=== PATIENT | male | born 1960 | race Caucasian/White ===

== ENCOUNTER 2016-05-22 04:55 | Inpatient (IN) | payer OTHER, MEDICARE ==
[~2016-05-22] VITALS: Ht 170.2 cm; Wt 77.5 kg
[~2016-05-22 04:55] MED LIST: EPOE200015 IJ; FOLI-49 PO; FURO40TA PO; LAB200 PO; LABE100T3 PO; LANT3I SC; METO25TA7 PO; MYCO250C3 PO; NEPH PO; NOVO3I SC; OMEP40CA6 PO; PRED5 PO; SODI650T PO; TACR1CAP26 PO; TAMS0.4C2 PO; ZOLP5TAB PO
[2016-05-22] MEDS ORDERED: ALBUTEROL 0.5% (NEB) 2.5 MG/0.5 ML AMP HHN STA (05:27)
[2016-05-22] MEDS ORDERED: IPRATROPIUM (NEB) 0.5 MG/2.5 ML AMP HHN ONE (05:30)
--- NOTE | 2016-05-22 06:05 | RADRPT ---
PROCEDURE: CHEST - 1 VIEW CLINICAL INDICATION: 56-year-old male with shortness of breath. TECHNIQUE: A single frontal AP semi-erect view of the chest was performed portably. The images we re reviewed on a PACS workstation. COMPARISON: Chest x-ray March 03, 2016. FINDINGS: The cardiomediastinal silhouette is enlarged. The thoracic aortic arch is mildly calcified. There is mild pulmonary vascular congestion. There is a shallow inspiration. There is left lower lung zone linear subsegmental atelectasis. There is no evidence for focal consolidation. There is no evidenc e for pneumothorax. The osseous structures are intact. IMPRESSION: 1. Cardiomegaly. 2. Mildly calcified thoracic aortic arch. 3. Pulmonary vascular congestion. 4. Shallow inspiration. 5. Left lower lung zone linear subsegmental atelectasis. A superimposed infiltrate cannot be exclu ded. .Alexx Denton MD, MD Date Time Electronically viewed and signed by .Alexx Denton MD, on 05/22/2016 06:04 .Peter/
[2016-05-22] MEDS ORDERED: IPRATROPIUM (NEB) 0.5 MG/2.5 ML AMP INH STA (06:06)
[2016-05-22] MEDS ORDERED: ALBUTEROL 0.5% (NEB) 2.5 MG/0.5 ML AMP INH STA (06:06)
[2016-05-22 06:46] LABS: HEMATOCRIT 22.4 % (42.0-52.0); HEMOGLOBIN 7.4 g/dl (14.0-18.0); MEAN CORPUSCULAR HEMOGLOBIN 30.5 pg (29.0-33.0); MEAN CORPUSCULAR VOLUME 92.4 fl (82.0-101.0); MEAN PLATELET VOLUME 12.4 fl (7.4-10.4); PLATELET COUNT 48 10^3/UL (140-440); RED BLOOD COUNT 2.43 10^6/ul (4.70-6.10); RED CELL DISTRIBUTION WIDTH 16.4 % (11.5-14.5); UNCORRECTED WBC 3.5 10^3/ul (4.8-10.8); WHITE BLOOD COUNT 3.5 10^3/ul (4.8-10.8)
[2016-05-22 06:57] LABS: POTASSIUM 4.7 mmol/L (3.5-5.1)
[2016-05-22 06:59] LABS: INR 1.17; PT RATIO 1.2
[2016-05-22 07:00] LABS: CREATININE 2.72 mg/dl (0.61-1.24); PARTIAL THROMBOPLASTIN TIME 28.2 Sec (25.0-35.0)
[2016-05-22] MEDS ORDERED: FUROSEMIDE 40 MG INJ IV ONE (07:00)
[2016-05-22 07:01] LABS: CALCIUM 8.4 mg/dl (8.4-10.2)
--- NOTE | 2016-05-22 07:04 | ERA ---
ER Documentation Chief Complaint Date/Time DATE: 05/22/16 TIME: 06:52 Chief Complaint chest congestion x 3-4 days HPI The patient is a 56-year-old gentleman with a past medical history of congestive heart failure, diabetes mellitus, hypertension, chronic kidney disease, status post kidney transplant in 2011, chronic pancytopenia, left eye blindness, status post left below knee amputation, and history of myeloproliferative disorder. The patient presented to the emergency room with shortness of breath with exertion and a dry cough for the past 3 to 4 days. He states he has not had a fever, shaking or chills. He denies any recent travel or prolonged immobilization. He denies any chest pain or pressure. He denies any abdominal pain. The patient indicates he has been compliant with all of his medications. The patient denies any swelling of his lower extremities. The patient states his primary care physician is Dr. Maloney and his electronics utility worker is Dr. Segun Landeros. His doughnut machine operator is Dr. Hatch. The patient' s renal transplant electronics utility worker is Dr. Sandra victoria located at [facility]. ROS All systems reviewed and are negative except as per history of present illness. Medications Home Meds Active Scripts Labetalol Hcl* (Normodyne*) 200 Mg Tab, 300 MG PO TID for 30 Days, TAB Prov:NEHEMIAH SALEH 07/28/15 Reported Medications Mycophenolate Mofetil* (Cellcept*) 250 Mg Capsule, 500 MG PO BID, CAP 03/03/16 Metoprolol Succinate* (Toprol XL*) 25 Mg Tab.sr.24h, 25 MG PO DAILY, #30 TAB 03/03/16 Furosemide* (Lasix*) 40 Mg Tablet, 40 MG PO DAILY, TAB 03/03/16 Labetalol Hcl* (Labetalol Hcl*) 100 Mg Tablet, 100 MG PO BID, TAB 03/03/16 Sodium Bicarbonate (Antacid) 650 Mg Tablet, 1300 MG PO BID, TAB 03/03/16 Insulin Glargine* (Lantus*) 100 Unit/Ml Soln, 33 UNIT SC BID, #1 VIAL 03/03/16 Epoetin Cayden (Procrit) 2,000 Unit/1 Ml Vial, 2000 UNIT IJ ONCE A MONTH, VIAL 03/03/16 Zolpidem Tartrate* (Ambien*) 5 Mg Tablet, 5 MG PO QHS Y for INSOMNIA, #30 TAB 07/19/15 Insulin Aspart* (Novolog Insulin Pen*) 100 Unit/Ml Soln, 0 SC .SLIDING SCALE AC , EA 06/15/15 Tacrolimus* (Prograf*) 1 Mg Capsule, 1 MG PO HS 03/09/15 Tacrolimus* (Prograf*) 1 Mg Capsule, 2 MG PO DAILY, CAP 0 Refills 09/29/14 Folic Acid* (Folic Acid*) 1 Mg Tablet, 1 MG PO BID, TAB 0 Refills 09/29/14 Omeprazole* (Omeprazole*) 40 Mg Capsule.dr, 40 MG PO DAILY, CAP 02/24/14 Multivit/Ca Carb/B Cmplx/Fa* (Delmy-Mario*) 1 Tab Tab, 1 TAB PO DAILY, TAB 02/24/14 Tamsulosin Hcl* (Tamsulosin Hcl*) 0.4 Mg Cap.er.24h, 0.4 MG PO HS, CAP 0 Refills 02/24/14 Prednisone* (Prednisone*) 5 Mg Tab, 5 MG PO DAILY, TAB 02/24/14 Allergies Allergies: Coded Allergies: No Known Allergies (Verified Allergy, Unknown, 03/03/16) PMhx/Soc History of Surgery: Yes (RT EYE SURGERY,GALLBLADDER SURG,TONSIL REMOVAL,LT BKA, KIDNEY TRANSPLANT) Anesthesia Reaction: No Hx Neurological Disorder: No Hx Respiratory Disorders: No Hx Cardiac Disorders: Yes (HTN) Hx Psychiatric Problems: No Hx Miscellaneous Medical Probl: No Hx Alcohol Use: No Hx Substance Use: No Hx Tobacco Use: No Smoking Status: Never smoker Physical Exam Vitals Vital Signs Date Time Temp Pulse Resp B/P Pulse Ox O2 Delivery O2 Flow Rate FiO2 05/22/16 06:17 73 18 99 21 05/22/16 05:57 96.6 82 18 145/78 99 Room Air 05/22/16 05:34 75 20 99 21 05/22/16 05:33 Simple Mask 10 05/22/16 05:20 98.4 89 20 141/67 100 Room Air 05/22/16 04:55 98.4 73 20 141/67 100 Physical Exam Constitutional:Well-developed. Well-nourished. HEENT:Normocephalic. Atraumatic.Right pupil was round and reactive to light. Patient is blind in the left eye. Moist mucous membranes.No tonsillar exudates. Neck: No nuchal rigidity. No lymphadenopathy. No posterior cervical spine tenderness or step-offs. Respiratory: Not using accessory muscles of respiration. Bilateral rhonchi with no wheezing on auscultation. Cardiovascular: Regular rate regular rhythm.No murmurs. No rubs were appreciated.S1, S2 normal. Distal pulses are palpable 2+ on the right. Distal pulese not palpable on the left due to below the knee amputation GI: Abdomen was soft. Nontender. Non Distended. No pulsatile abdominal masses or bruits. No rebound. No guarding. Bowel sounds were present and normal. Muscle skeletal: Full range of motion of both the upper bilaterally.Normal muscle tone.No assymetrical calf tenderness or swelling. Left below the knee amputation stump was clean dry and intact. Skin: No petechia, no purpura. No lesions on the palms or the soles of the feet. No maculopapular rash. NEURO: Patient was alert, awake, orientated x3.No facial droop. Gait observed and normal with no ataxia.Speech had regular rate and rhythm. No focal neurological deficits. Result Diagram: 05/22/16 0534 Results 24 hrs Laboratory Tests Test 05/22/16 05:34 Activated Partial Thromboplast Time 28.2Sec Basophils # 10^3/ul Blood Morphology Comment Eosinophils # 10^3/ul Eosinophils % % Hematocrit 22.4% Hemoglobin 7.4g/dl INR International Normalized Ratio 1.17 Lymphocytes # 10^3/ul Lymphocytes % % Mean Corpuscular Hemoglobin 30.5pg Mean Corpuscular Hemoglobin Concent 33.0g/dl Mean Corpuscular Volume 92.4fl Mean Platelet Volume 12.4fl Monocytes # 10^3/ul Neutrophils # 10^3/ul Neutrophils % % Nucleated Red Blood Cells # 10^3/ul Nucleated Red Blood Cells % /100WBC Platelet Count 4810^3/UL Prothrombin Time 15.0Sec Prothrombin Time Ratio 1.2 Red Blood Count 2.4310^6/ul Red Cell Distribution Width 16.4% White Blood Count 3.510^3/ul Current Medications Medications (Trade) Dose Ordered Sig/Janiya Route PRN Reason Start Time Stop Time Status Last Admin Dose Admin Albuterol (Proventil 0.5% (Neb)) 5 mg ONCE STAT N 05/22/16 05:27 05/22/16 05:29 DC 05/22/16 05:34 Ipratropium Valencia (Atrovent 0.02% (Neb)) 0.5 mg ONCE ONCE HHN 05/22/16 05:30 05/22/16 05:31 DC 05/22/16 05:33 Albuterol (Proventil 0.5% (Neb)) 10 mg ONCE STAT INH 05/22/16 06:06 05/22/16 06:08 DC 05/22/16 06:17 Ipratropium Valencia (Atrovent 0.02% (Neb)) 1 mg ONCE STAT INH 05/22/16 06:06 05/22/16 06:08 DC 05/22/16 06:17 Furosemide (Lasix) 40 mg ONCE ONCE IV 05/22/16 07:00 05/22/16 07:01 DC Procedures/MDM The patient presented to the emergency department with shortness of breath. My differential diagnosis included but was not limited to upper airway obstruction , CHF, pulmonary embolism, cardiac ischemia, pneumonia, pneumothorax, anemia, drug overdose, pulmonary edema, COPD or asthma. Chest radiograph showed pulmonary vascular congestion with an elevated BNP. I felt the patient's symptoms were resolved of congestive heart failure exacerbation. The patient had received continuous nebulizer treatments of albuterol Atrovent was also given IV Lasix. Nitroglycerin was not given as the patient was hypotensive. 12 Lead EKG tracing ordered and reviewed by myself showed: Sinus tachycardia at 107 bpm and no arrhythmia. OK interval normal. QRS duration normal. No ST segment elevation No ST segment depression. No changes consistent with acute ischemia. The patient was anemic with a hemoglobin of 7.4. The patient will be type and cross will be given 1 unit of packed red blood cells. The patient will be admitted to his primary care physician Dr. Kel jimenez to the telemetry service in serious condition with anticipated stay of greater than 2 midnights. Departure Diagnosis: Primary Impression: CHF exacerbation Qualified Code: I50.9 - Acute on chronic congestive heart failure, unspecified congestive heart failure type Additional Impression: Anemia Condition: Serious TRANG FOX May 22, 2016 07:03
[2016-05-22 07:11] LABS: CONDITION 1; LH ANALYZER COMMENTS 1; SUSPECT 1
[2016-05-22 07:12] LABS: TROPONIN-I 0.044 ng/ml (0.00-0.12)
[2016-05-22] MEDS ORDERED: LEVO250T9 PO (07:25)
[2016-05-22] MEDS ORDERED: PRED20TA PO (07:28)
[2016-05-22] MEDS ORDERED: ONDANSETRON 4 MG INJ IV PRN (09:00)
[2016-05-22] MEDS ORDERED: ACETAMINOPHEN 325 MG TAB PO PRN ×2 (09:00→20:30)
[2016-05-22 09:24] LABS: LYMPHOCYTES # 0.5 10^3/ul (0.8-2.9); MONOCYTE # 0.1 10^3/ul (0.3-0.9); NEUTROPHIL # 2.8 10^3/ul (1.6-7.5)
[2016-05-22] MEDS ORDERED: DEXTROSE 50% 50 ML SYRINGE IV PRN ×2 (13:00)
[2016-05-22] MEDS ORDERED: GLUCOSE GEL 15 GRAM TUBE PO PRN ×2 (13:00)
[2016-05-22] MEDS ORDERED: GLUCAGON 1 MG INJ IM PRN (13:00)
[2016-05-22] MEDS ORDERED: GLUCOSE GEL 15 GRAM TUBE BUCCAL PRN (13:00)
[2016-05-22] MEDS: CEFTRIAXONE 1 GM/50 ML (PMX) 50 ML IVPB SCH (14:01)
[2016-05-22] MEDS: AZITHROMYCIN 500MG/NS (PMX) 250 ML IVPB SCH (14:02)
[2016-05-22] MEDS ORDERED: morphine 2 MG INJ IV STA (14:44)
[2016-05-22] MEDS ORDERED: ONDANSETRON 4 MG INJ IV STA (14:44)
--- NOTE | 2016-05-22 18:24 | HP ---
DATE OF ADMISSION: 05/22/2016 HISTORY OF PRESENT ILLNESS: The patient is a 56-year-old gentleman known to me from previous admiss ion. PAST MEDICAL HISTORY: Positive for congestive heart failure, diabetes, hypertension, chronic kidney disease status post kidney transplant in 2011, chronic pancytopenia, left eye blindness, status pos t left below knee amputation and history of myeloproliferative disorder. SOCIAL HISTORY: Patient stated that he developed a dry cough and flu-like symptoms and was seen at his primary care physician's office, Dr. Lagos, and was started on Levaquin and prednisone; [facility] er, patient stated that his condition did not improve. Patient continued to have a cough, congestion and the patient presented to the emergency room. The patient denies any nausea, vomiting. Patient also complains of difficulty breathing, was given breathing treatments with some improvement and wa s given Lasix. The patient also noted to have hemoglobin of 7.4 on admission and was getting transf usion of packed red blood cells. Patient underwent a chest x-ray which revealed cardiomegaly, mildly calcified thoracic aortic arch, pulmonary vascular congestion, shallow inspiration, left lower lung zone linear subsegmental atelectasis. Superimposed infiltrate cannot be excluded. DISPOSITION: The patient will be admitted for further evaluation and management. Patient denies any nausea, vomiting. Denies recent fevers or diarrhea and denies palpitations. PAST MEDICAL HISTORY: Per HPI. PAST SURGICAL HISTORY: Status post left BKA, status post cadaveric kidney transplant in January 06 at [facility], status post left eye vitrectomy, status post cholecystectomy and status post to nsillectomy. FAMILY HISTORY: Mother with cardiac disease, details not available, father is . Denies any family history of diabetes. SOCIAL HISTORY: The patient lives at home with his family. The patient denies any tobacco use, den ies any alcohol use, denies any illicit drug use. ALLERGIES: NO KNOWN ALLERGIES. MEDICATIONS ON ADMISSION: 1. Labetalol. 2. CellCept. 3. Toprol XL. 4. Lasix. 5. Lantus 33 units subq b.i.d. 6. Procrit. 7. Ambien. 8. NovoLog. 9. Prograf. 10. Folic acid. 11. Omeprazole. 12. Delmy-Mario. 13. Tamsulosin. 14. Prednisone. REVIEW OF SYSTEMS: A 12-point review of systems is negative unless what mentioned in the HPI. PHYSICAL EXAMINATION: GENERAL: This is a well-developed, well-nourished male, currently awake, alert. VITAL SIGNS: Temperature is 98.1, pulse is 77, blood pressure 131/72, respiratory rate 21, oxygen s aturation 100% on room air. HEENT: Head is atraumatic, normocephalic. Left eye blindness. Right pupil is equal, reactive to l ight and accommodation. NECK: Supple. JVD is present, no lymphadenopathy. RESPIRATORY: Bilateral rhonchi, slightly diminished at the bases. CARDIOVASCULAR: Normal S1, S2. No murmurs, gallops, clicks, rubs noted. ABDOMEN: Protuberant, soft, nondistended, nontender. Bowel sounds present. No guarding, no reboun d tenderness. EXTREMITIES: The patient has a left BKA. Mild edema and right lower extremity pulses present. SKIN: There is no rash, petechiae noted. NEUROLOGIC: Patient is awake, alert and oriented x3. No focal deficits noted. Motor strength 5/5 in all extremities. LABORATORY DATA: On admission, CBC: White blood cells 3.5, hemoglobin 7.4, hematocrit 22.4, platel ets 48. Chemistry: Sodium 139, potassium 4.7, chloride 106, carbon dioxide 20, anion gap 18, BUN i s 60, creatinine 2.72, glucose 248, calcium is 8.4. Troponin 0.04. BNP is 35,700. ASSESSMENT AND PLAN: 1. Congestive heart failure exacerbation. Continue patient on Lasix. Will ask Dr. Montes to see rafaela cervantes in cardiology consultation. 2. Possible community-acquired pneumonia. Start Rocephin, Zithromax. 3. Kidney failure, status post transplant. Patient is currently with elevated creatinine, will ask Dr. Bonilla to follow patient in nephrology consultation. Continue patient on prednisone and Pro isaac. 4. Anemia. We will transfuse 1 unit of packed red blood cells. 5. Diabetes mellitus type 2. Continue NovoLog and Lantus, monitor blood sugar. 6. Hypertension. Continue to monitor blood pressure. Continue Toprol-XL. 7. We will check influenza A and B swabs. Protonix for peptic ulcer disease prophylaxis. Sequentia l compression devices for deep venous thrombosis prophylaxis. Further recommendations based on clin ical course. Plan of care discussed with Dr. Farley who is currently covering for Dr. Lagos. Dictated By: NEHEMIAH SALEH MECHANOTHERAPIST for MICHELLE LAGOS MD SR/NTS Conf#: [id number] DID#: [id number]
[2016-05-22 18:44] VITALS: TEMP 98.1
[2016-05-22 20:00] VITALS: PULSE 77
[2016-05-22 20:13] VITALS: BP 171/84; RESP 20
[2016-05-22] MEDS ORDERED: hydrALAzine 20 MG INJ IV PRN (21:00)
[2016-05-22] MEDS ORDERED: INSULIN GLARGINE [LANtus] 3 ML PEN SC SCH (21:00)
[2016-05-22] MEDS ORDERED: TACROLIMUS 1 MG CAP PO SCH (21:00)
[2016-05-22] MEDS: INSULIN ASPART [NOVOLOG] 3 ML PEN SC SCH (21:00)
[2016-05-22] MEDS ORDERED: LABETALOL 200 MG TAB PO SCH (21:00)
--- NOTE | 2016-05-22 21:10 | CONS ---
Date/Time of Note Date/Time of Note DATE: 05/22/16 TIME: 20:59 Assessment/Plan Assessment/Plan Additional Assessment/Plan Dyspnea Acute decompensated congestive heart failure Aortic stenosis Severe anemia status post blood transfusion Hypertension Peripheral arterial disease Chronic kidney disease with history of renal transplant -Patient symptoms of shortness of breath is multifactorial with likely infectious etiology a contributing factor. Would continue diuretics as blood pressure and renal function permits, check echocardiogram to evaluate LV function and aortic stenosis. Patient is receiving blood transfusion in the emergency room. Patient also with history of possible carotid stenosis and planned for repeat ultrasound, we'll order while in-house. Consultation Date/Type/Reason Admit Date/Time May 22, 2016 at 08:44 Type of Consultation: cv Reason for Consultation Shortness of breath and cough Hx of Present Illness This is a 56-year-old male with past medical history of renal transplant, congestive heart failure, hypertension, peripheral arterial disease who presents with chills, cough and shortness of breath worsening over the past 3-4 days. Patient was seen primary physician and put on antibiotics and steroids. This morning, cough increased with phlegm production. In the emergency room, patient was given nebulizer treatments with significant improvement in shortness of breath and cough. He denies any chest pain, dizziness or lightheadedness. He does complain of weakness. He denies any fevers. Denies dyspnea with lying down flat but does have occasionally with exertion. 12 point review of systems was performed with all pertinent positives and negatives mentioned above and all else is negative Past Medical History PAD Medical History: congestive heart failure, hypertension, renal disease Past Surgical History Renal transplant Left leg amputation Family History Significant Family History: no pertinent family hx Social History Smoking Status: Never smoker Exam/Review of Systems Vital Signs Vitals Vital Signs Date Time Temp Pulse Resp B/P Pulse Ox O2 Delivery O2 Flow Rate FiO2 05/22/16 20:13 98.5 83 20 171/84 99 05/22/16 18:44 Room Air 05/22/16 06:17 21 05/22/16 05:33 10 Exam No apparent distress, speaking in complete sentences Constitutional: alert, oriented, well developed Head: normocephalic Neck: supple Respiratory: other (course breath sounds bilaterally, no wheezing) Cardiovascular: other (S1-S2 heard), regular rate and rhythm, systolic murmur Gastrointestinal: bowel sounds, non-tender, soft Extremities: edema, other (left leg below the knee amputation) Results Result Diagram: 05/22/16 0534 05/22/16 0534 Results 24 hrs Laboratory Tests Test 05/22/16 05:30 05/22/16 05:34 05/22/16 15:56 05/22/16 19:59 B-Type Natriuretic Peptide 62668 H Activated Partial Thromboplast Time 28.2 Anion Gap 18 H Basophils # Blood Morphology Comment Blood Urea Nitrogen 60 H Calcium Level 8.4 Carbon Dioxide Level 20 L Chloride Level 106 Creatinine 2.72 H Eosinophils # 0.0 Eosinophils % 1.0 Glucose Level 248 H Hematocrit 22.4 L Hemoglobin 7.4 L INR International Normalized Ratio 1.17 Lymphocytes # 0.5 L Lymphocytes % 14.0 L Mean Corpuscular Hemoglobin 30.5 Mean Corpuscular Hemoglobin Concent 33.0 Mean Corpuscular Volume 92.4 Mean Platelet Volume 12.4 H Monocytes # 0.1 L Monocytes % 4.0 Neutrophils # 2.8 Neutrophils % 81.0 H Nucleated Red Blood Cells # Nucleated Red Blood Cells % Platelet Count 48 L Potassium Level 4.7 Prothrombin Time 15.0 H Prothrombin Time Ratio 1.2 Red Blood Count 2.43 L Red Cell Distribution Width 16.4 H Sodium Level 139 Troponin I 0.044 White Blood Count 3.5 L Bedside Glucose 91 160 Medications Medications Current Medications Ceftriaxone Sodium 50 ml @ 100 mls/hr Q24H IVPB Last administered on 14:01; Admin Dose 100 MLS/HR; Start 05/22/16 at 12:30 Azithromycin (Zithromax 500mg/ NS (Pmx)) 250 ml @ 250 mls/hr Q24H IVPB Last administered on 05/22/16 14:02; Admin Dose 250 MLS/HR; Start 05/22/16 at 12:30 Metoprolol Succinate (Toprol Xl) 25 mg DAILY PO ; Start 05/23/16 at 09:00 Multivit/Ca Carb/ B Cmplx/FA/Prenat (Delmy-Mario) 1 tab DAILY PO ; Start 05/23/16 at 09:00 Mycophenolate Mofetil (Cellcept) 500 mg BID PO ; Start 05/22/16 at 21:00 Prednisone (Prednisone) 5 mg DAILY PO ; Start 05/23/16 at 09:00 Tamsulosin HCl (Flomax) 0.4 mg HS PO ; Start 05/22/16 at 21:00 Zolpidem Tartrate (Ambien) 5 mg QHS PRN PO INSOMNIA; Start 05/22/16 at 12:30 Miscellaneous Information 1 ea NOTE XX ; Start 05/22/16 at 13:00 Glucose (Glutose) 15 gm Q15M PRN PO DECREASED GLUCOSE; Start 05/22/16 at 13:00 Glucose (Glutose) 22.5 gm Q15M PRN PO DECREASED GLUCOSE; Start 05/22/16 at 13: 00 Dextrose (D50w Syringe) 25 ml Q15M PRN IV DECREASED GLUCOSE; Start 05/22/16 at 13:00 Dextrose (D50w Syringe) 50 ml Q15M PRN IV DECREASED GLUCOSE; Start 05/22/16 at 13:00 Glucagon (Glucagen) 1 mg Q15M PRN IM DECREASED GLUCOSE; Start 05/22/16 at 13:00 Glucose (Glutose) 15 gm Q15M PRN BUCCAL DECREASED GLUCOSE; Start 05/22/16 at 13 :00 Labetalol HCl (Normodyne) 200 mg BID PO ; Start 05/22/16 at 21:00 Pantoprazole (Protonix Tab) 40 mg DAILY@06 PO ; Start 05/23/16 at 06:00 Folic Acid (Folic Acid) 1 mg BID PO ; Start 05/22/16 at 21:00 Insulin Glargine (Lantus) 25 unit Q12 SC ; Start 05/22/16 at 21:00 Diagnostic Test (Pha) (Accucheck) 1 ea 02 XX ; Start 05/23/16 at 02:00 Sodium Bicarbonate (Sodium Bicarbonate Tab) 1,300 mg BID PO ; Start 05/22/16 at 21:00 Furosemide (Lasix) 40 mg DAILY PO ; Start 05/23/16 at 09:00 Ondansetron HCl (Zofran Inj) 4 mg Q4H PRN IV NAUSEA AND/OR VOMITING; Start at 20:30 Morphine Sulfate (morphine) 4 mg Q4H PRN IV PAIN; Start 05/22/16 at 20:30 Acetaminophen (Tylenol Tab) 650 mg Q4H PRN PO PAIN AND OR ELEVATED TEMP; Start 05/22/16 at 20:30 Procedures Procedures ECG demonstrates sinus rhythm, nonspecific STT wave abnormalities Rebel Montes DO May 22, 2016 21:09
[2016-05-22] MEDS: NA BICARBONATE 650 MG TAB PO SCH (21:55)
[2016-05-22] MEDS: FOLIC ACID 1 MG TAB PO SCH (21:55)
[2016-05-22] MEDS: LABETALOL 200 MG TAB PO SCH (21:56)
[2016-05-22] MEDS: TAMSULOSIN (SR) 0.4 MG CAP PO SCH (21:56)
[2016-05-22] MEDS: ALBUTEROL/IPRATROPIUM (NEB) 3 ML AMP HHN SCH (22:00)
[2016-05-22] MEDS: INSULIN GLARGINE [LANtus] 3 ML PEN SC SCH (22:03)
[2016-05-22] MEDS: morphine 4 MG/ML VIAL IV PRN (22:08)
[2016-05-22] MEDS: ZOLPIDEM 5 MG TAB PO PRN (22:19)
--- NOTE | 2016-05-22 22:30 | RADRPT ---
PROCEDURE: US carotid arteries. CLINICAL INDICATION: Dizziness. History of carotid stenosis. TECHNIQUE: Multiple sonographic images of the carotid arteries and vertebral arteries were obtaine d utilizing aguilar scale, duplex, and color-flow imaging. The images were reviewed on a PACS workstati on. COMPARISON: No prior studies are available for comparison. FINDINGS: Evaluation of the right carotid bifurcation region reveals mild atherosclerotic disease. Evaluation of the left carotid bifurcation region reveals mild atherosclerotic disease. There is antegrade flow within the vertebral arteries bilaterally. RIGHT CAROTID MEASUREMENTS: Common Carotid Pynexh72 (cm/sec) Internal Carotid Artery 79 (cm/sec) External Carotid Artery 84 (cm/sec) Vertebral Artery 72 (cm/sec) Internal Carotid/Common Carotid0.9 LEFT CAROTID MEASUREMENTS: Common Carotid Ahacfs30 (cm/sec) Internal Carotid Artery 74 (cm/sec) External Carotid Artery 36 (cm/sec) Vertebral Artery 44 (cm/sec) Internal Carotid/Common Carotid1.4 Validated velocity measurements with angiographic measurements. Velocity criteria are extrapolated f rom diameter data as defined by the Society of Radiologists in Ultrasound Consensus Conference. Radi ology 2003; 229;340-346. This study does indirectly reference the measurement of the distal ICA flor meter as the denominator for stenosis measurement. IMPRESSION: 1. Less than 50% stenosis bilaterally in the internal carotid arteries. 2. Normal antegrade flow in the vertebral arteries bilaterally. RPTAT: QQ SRU Consensus Conference Criteria for the Diagnosis of Carotid Artery Stenosis* Degree of Stenosis, % ICA PSV, cm/sec Plaque Estimate, % ICA/CCA PSV Ratio Normal <125 None <2.0 <50 <125 <50 <2.0 50 69 125-230 >50 2.0-4.0 >70 but less than near occlusion >230 >50 <4.0 Near occlusion High, low, or undetectable Visible Variable Total occlusion Undetectable Visible, no detectable lumen Not applicable *Cartoid artery stenosis: aguilar-scale and Doppler US diagnosis. Society of Radiologists in Ultrasound Consensus Conference. Radiology 2003; 229: 340-346 .Carroll Gaines MD, Date Time Electronically viewed and signed by .Carroll Gaines MD, on 05/22/2016 22:30 .R/
[2016-05-22 22:44] VITALS: Ht 170.2 cm; Wt 77.5 kg
[2016-05-22] MEDS: MYCOPHENOLATE 250 MG CAP PO SCH (23:34)
[2016-05-22 23:55] VITALS: BP 128/66; RESP 20
[2016-05-23] VITALS (14 sets, daily range): BP systolic 87–176; BP diastolic 54–88; PULSE 76–105; RESP 18–20
[2016-05-23] MEDS: ACCUCHECK XX SCH (02:00)
[2016-05-23] MEDS ORDERED: ACCUCHECK XX SCH (02:00)
[2016-05-23] MEDS: morphine 4 MG/ML VIAL IV PRN ×3 (03:09→20:43)
[2016-05-23] MEDS: ALBUTEROL/IPRATROPIUM (NEB) 3 ML AMP HHN PRN ×3 (03:20→23:46)
[2016-05-23] MEDS: LABETALOL 200 MG TAB PO SCH ×3 (05:38→22:22)
[2016-05-23] MEDS: PANTOPRAZOLE (EC) 40 MG TAB PO SCH (06:26)
[2016-05-23] MEDS: ALBUTEROL/IPRATROPIUM (NEB) 3 ML AMP HHN SCH ×3 (07:17→19:34)
[2016-05-23] MEDS: INSULIN ASPART [NOVOLOG] 3 ML PEN SC SCH ×4 (07:55→21:00)
[2016-05-23] MEDS: MYCOPHENOLATE 250 MG CAP PO SCH ×2 (09:00→21:10)
[2016-05-23] MEDS ORDERED: TACROLIMUS 1 MG CAP PO SCH (09:00)
[2016-05-23] MEDS ORDERED: METOPROLOL (XL) 25 MG TAB PO SCH (09:00)
[2016-05-23] MEDS ORDERED: predniSONE 5 MG TAB PO SCH (09:00)
[2016-05-23] MEDS: FOLIC ACID 1 MG TAB PO SCH ×2 (09:01→21:10)
[2016-05-23] MEDS: NA BICARBONATE 650 MG TAB PO SCH ×2 (09:02→21:10)
[2016-05-23] MEDS: MULTIVIT/CA CARB/B CMPLX/FA TAB PO SCH (09:02)
[2016-05-23] MEDS: FUROSEMIDE 40 MG TAB PO SCH (09:02)
[2016-05-23] MEDS: INSULIN GLARGINE [LANtus] 3 ML PEN SC SCH (09:06)
[2016-05-23] MEDS: CEFTRIAXONE 1 GM/50 ML (PMX) 50 ML IVPB SCH (12:39)
--- NOTE | 2016-05-23 12:55 | CONS ---
Date/Time of Note Date/Time of Note DATE: 05/23/16 TIME: 12:53 Assessment/Plan Assessment/Plan Additional Assessment/Plan Dyspnea Acute decompensated congestive heart failure Aortic stenosis Severe anemia status post blood transfusion Hypertension Peripheral arterial disease Chronic kidney disease with history of renal transplant Moderate carotid artery stenosis -Patient with mild improvement in symptoms, symptoms improved after nebulizer treatments. Continue diuretics and check laboratory studies to evaluate hemoglobin and renal function. Echocardiogram pending. Consultation Date/Type/Reason Admit Date/Time May 22, 2016 at 08:44 Initial Consult Date Type of Consultation: cv 24 HR Interval Summary Free Text/Dictation Shortness of breath is slightly better but improves after nebulizer treatments, cough is still present Exam/Review of Systems Vital Signs Vitals Vital Signs Date Time Temp Pulse Resp B/P Pulse Ox O2 Delivery O2 Flow Rate FiO2 05/23/16 12:08 92 05/23/16 11:31 98.4 20 157/88 100 05/23/16 09:42 21 05/22/16 18:44 Room Air 05/22/16 05:33 10 Intake and Output 05/22/16 05/22/16 05/23/16 15:00 23:00 07:00 Intake Total 350 ml 400 ml Output Total 700 ml 270 ml 400 ml Balance -350 ml -270 ml 0 ml Exam Sitting in chair, no apparent distress Constitutional: alert, oriented Head: normocephalic Neck: supple Respiratory: other (course breath sounds bilaterally with scattered mild rhonchi, no wheezing) Cardiovascular: other (S1-S2 heard), regular rate and rhythm, systolic murmur Gastrointestinal: bowel sounds, non-tender, soft Extremities: edema Results Result Diagram: 05/22/16 0534 05/22/16 0534 Results 24 hrs Laboratory Tests Test 05/22/16 15:56 05/22/16 19:59 05/23/16 08:41 05/23/16 11:26 Bedside Glucose 91 160 47 *L 72 Medications Medications Current Medications Ceftriaxone Sodium 50 ml @ 100 mls/hr Q24H IVPB Last administered on 12:39; Admin Dose 100 MLS/HR; Start 05/22/16 at 12:30 Azithromycin (Zithromax 500mg/ NS (Pmx)) 250 ml @ 250 mls/hr Q24H IVPB Last administered on 05/22/16 14:02; Admin Dose 250 MLS/HR; Start 05/22/16 at 12:30 Multivit/Ca Carb/ B Cmplx/FA/Prenat (Delmy-Mario) 1 tab DAILY PO Last administered on 05/23/16 09:02; Admin Dose 1 TAB; Start 05/23/16 at 09:00 Mycophenolate Mofetil (Cellcept) 500 mg BID PO Last administered on 05/23/16 09:00; Admin Dose 500 MG; Start 05/22/16 at 21:00 Prednisone (Prednisone) 5 mg DAILY PO Last administered on 05/23/16 09:02; Admin Dose 5 MG; Start 05/23/16 at 09:00 Tamsulosin HCl (Flomax) 0.4 mg HS PO Last administered on 05/22/16 21:56; Admin Dose 0.4 MG; Start 05/22/16 at 21:00 Zolpidem Tartrate (Ambien) 5 mg QHS PRN PO INSOMNIA Last administered on 22:19; Admin Dose 5 MG; Start 05/22/16 at 12:30 Miscellaneous Information 1 ea NOTE XX ; Start 05/22/16 at 13:00 Glucose (Glutose) 15 gm Q15M PRN PO DECREASED GLUCOSE; Start 05/22/16 at 13:00 Glucose (Glutose) 22.5 gm Q15M PRN PO DECREASED GLUCOSE; Start 05/22/16 at 13: 00 Dextrose (D50w Syringe) 25 ml Q15M PRN IV DECREASED GLUCOSE; Start 05/22/16 at 13:00 Dextrose (D50w Syringe) 50 ml Q15M PRN IV DECREASED GLUCOSE; Start 05/22/16 at 13:00 Glucagon (Glucagen) 1 mg Q15M PRN IM DECREASED GLUCOSE; Start 05/22/16 at 13:00 Glucose (Glutose) 15 gm Q15M PRN BUCCAL DECREASED GLUCOSE; Start 05/22/16 at 13 :00 Pantoprazole (Protonix Tab) 40 mg DAILY@06 PO Last administered on 05/23/16 06 :26; Admin Dose 40 MG; Start 05/23/16 at 06:00 Folic Acid (Folic Acid) 1 mg BID PO Last administered on 05/23/16 09:01; Admin Dose 1 MG; Start 05/22/16 at 21:00 Insulin Glargine (Lantus) 25 unit Q12 SC Last administered on 05/23/16 09:06; Admin Dose 25 UNIT; Start 05/22/16 at 21:00 Diagnostic Test (Pha) (Accucheck) 1 ea 02 XX ; Start 05/23/16 at 02:00 Sodium Bicarbonate (Sodium Bicarbonate Tab) 1,300 mg BID PO Last administered on 05/23/16 09:02; Admin Dose 1,300 MG; Start 05/22/16 at 21:00 Furosemide (Lasix) 40 mg DAILY PO Last administered on 05/23/16 09:02; Admin Dose 40 MG; Start 05/23/16 at 09:00 Ondansetron HCl (Zofran Inj) 4 mg Q4H PRN IV NAUSEA AND/OR VOMITING; Start at 20:30 Morphine Sulfate (morphine) 4 mg Q4H PRN IV PAIN Last administered on 11:27; Admin Dose 4 MG; Start 05/22/16 at 20:30 Acetaminophen (Tylenol Tab) 650 mg Q4H PRN PO PAIN AND OR ELEVATED TEMP; Start 05/22/16 at 20:30 Labetalol HCl (Normodyne) 200 mg Q8 PO Last administered on 05/22/16 21:56; Admin Dose 200 MG; Start 05/22/16 at 22:00 Hydralazine HCl (Apresoline) 10 mg Q6H PRN IV sbp>170; Start 05/22/16 at 21:00 Clonidine (Catapres) 0.1 mg Q4H PRN PO systolic BP >170; Start 05/22/16 at 21: 30 Epoetin Cayden (Epogen (Esrd)) 2,000 units Hussein@17 SC ; Start 05/28/16 at 17:00 Rebel Montes DO May 23, 2016 12:55
--- NOTE | 2016-05-23 13:38 | PN ---
Date/Time of Note Date/Time of Note DATE: 05/23/16 TIME: 13:29 Assessment/Plan VTE Prophylaxis VTE Prophylaxis Intervention: SCD's Lines/Catheters [facility] Urinary Cath still in place: No Assessment/Plan Chief Complaint/Hosp Course ASSESSMENT AND PLAN: 1. Congestive heart failure exacerbation. Continue patient on Lasix. Dr. Montes is following in cardiology consultation. 2. Possible community-acquired pneumonia. Continue Rocephin, Zithromax. 3. Kidney failure, status post transplant. Patient is currently with elevated creatinine, will ask Dr. Bonilla to follow patient in nephrology consultation. Continue patient on prednisone and Prograf. 4. Anemia, s/p 1 unit of packed red blood cells transfusion. Monitor hemoglobin and hematocrit 5. Diabetes mellitus type 2. Continue NovoLog and Lantus, monitor blood sugar. 6. Hypertension. Continue to monitor blood pressure. Continue Toprol-XL. Continue Protonix for peptic ulcer disease prophylaxis. Sequential compression devices for deep venous thrombosis prophylaxis. Further recommendations based on clinical course. Plan of care discussed with Dr. Farley who is currently covering for Dr. Maloney. Problems: Subjective 24 Hr Interval Summary Free Text/Dictation Patient continues to have dyspnea and shortness of breath, improved with breathing treatments. Exam/Review of Systems Vital Signs Vitals Vital Signs Date Time Temp Pulse Resp B/P Pulse Ox O2 Delivery O2 Flow Rate FiO2 05/23/16 12:08 92 05/23/16 11:31 98.4 20 157/88 100 05/23/16 09:42 21 05/22/16 18:44 Room Air 05/22/16 05:33 10 Intake and Output 05/22/16 05/22/16 05/23/16 15:00 23:00 07:00 Intake Total 350 ml 400 ml Output Total 700 ml 270 ml 400 ml Balance -350 ml -270 ml 0 ml Exam GENERAL: This is a well-developed, well-nourished male, currently awake, alert. HEENT: Head is atraumatic, normocephalic. Left eye blindness. NECK: Supple. JVD is present, no lymphadenopathy. RESPIRATORY: Bilateral rhonchi, slightly diminished at the bases. CARDIOVASCULAR: Normal S1, S2. No murmurs, gallops, clicks, rubs noted. ABDOMEN: Protuberant, soft, nondistended, nontender. Bowel sounds present. No guarding, no rebound tenderness. EXTREMITIES: The patient has a left BKA. SKIN: There is no rash, petechiae noted. NEUROLOGIC: Patient is awake, alert and oriented x3. Results Result Diagram: 05/22/16 0534 05/22/16 0534 Results 24 hrs Laboratory Tests Test 05/22/16 15:56 05/22/16 19:59 05/23/16 08:41 05/23/16 11:26 Bedside Glucose 91 160 47 *L 72 Medications Medications Current Medications Ceftriaxone Sodium 50 ml @ 100 mls/hr Q24H IVPB Last administered on 12:39; Admin Dose 100 MLS/HR; Start 05/22/16 at 12:30 Azithromycin (Zithromax 500mg/ NS (Pmx)) 250 ml @ 250 mls/hr Q24H IVPB Last administered on 05/22/16 14:02; Admin Dose 250 MLS/HR; Start 05/22/16 at 12:30 Multivit/Ca Carb/ B Cmplx/FA/Prenat (Delmy-Mario) 1 tab DAILY PO Last administered on 05/23/16 09:02; Admin Dose 1 TAB; Start 05/23/16 at 09:00 Mycophenolate Mofetil (Cellcept) 500 mg BID PO Last administered on 05/23/16 09:00; Admin Dose 500 MG; Start 05/22/16 at 21:00 Prednisone (Prednisone) 5 mg DAILY PO Last administered on 05/23/16 09:02; Admin Dose 5 MG; Start 05/23/16 at 09:00 Tamsulosin HCl (Flomax) 0.4 mg HS PO Last administered on 05/22/16 21:56; Admin Dose 0.4 MG; Start 05/22/16 at 21:00 Zolpidem Tartrate (Ambien) 5 mg QHS PRN PO INSOMNIA Last administered on 22:19; Admin Dose 5 MG; Start 05/22/16 at 12:30 Miscellaneous Information 1 ea NOTE XX ; Start 05/22/16 at 13:00 Glucose (Glutose) 15 gm Q15M PRN PO DECREASED GLUCOSE; Start 05/22/16 at 13:00 Glucose (Glutose) 22.5 gm Q15M PRN PO DECREASED GLUCOSE; Start 05/22/16 at 13: 00 Dextrose (D50w Syringe) 25 ml Q15M PRN IV DECREASED GLUCOSE; Start 05/22/16 at 13:00 Dextrose (D50w Syringe) 50 ml Q15M PRN IV DECREASED GLUCOSE; Start 05/22/16 at 13:00 Glucagon (Glucagen) 1 mg Q15M PRN IM DECREASED GLUCOSE; Start 05/22/16 at 13:00 Glucose (Glutose) 15 gm Q15M PRN BUCCAL DECREASED GLUCOSE; Start 05/22/16 at 13 :00 Pantoprazole (Protonix Tab) 40 mg DAILY@06 PO Last administered on 05/23/16 06 :26; Admin Dose 40 MG; Start 05/23/16 at 06:00 Folic Acid (Folic Acid) 1 mg BID PO Last administered on 05/23/16 09:01; Admin Dose 1 MG; Start 05/22/16 at 21:00 Insulin Glargine (Lantus) 25 unit Q12 SC Last administered on 05/23/16 09:06; Admin Dose 25 UNIT; Start 05/22/16 at 21:00 Diagnostic Test (Pha) (Accucheck) 1 ea 02 XX ; Start 05/23/16 at 02:00 Sodium Bicarbonate (Sodium Bicarbonate Tab) 1,300 mg BID PO Last administered on 05/23/16 09:02; Admin Dose 1,300 MG; Start 05/22/16 at 21:00 Furosemide (Lasix) 40 mg DAILY PO Last administered on 05/23/16 09:02; Admin Dose 40 MG; Start 05/23/16 at 09:00 Ondansetron HCl (Zofran Inj) 4 mg Q4H PRN IV NAUSEA AND/OR VOMITING; Start at 20:30 Morphine Sulfate (morphine) 4 mg Q4H PRN IV PAIN Last administered on 11:27; Admin Dose 4 MG; Start 05/22/16 at 20:30 Acetaminophen (Tylenol Tab) 650 mg Q4H PRN PO PAIN AND OR ELEVATED TEMP; Start 05/22/16 at 20:30 Labetalol HCl (Normodyne) 200 mg Q8 PO Last administered on 05/22/16 21:56; Admin Dose 200 MG; Start 05/22/16 at 22:00 Hydralazine HCl (Apresoline) 10 mg Q6H PRN IV sbp>170; Start 05/22/16 at 21:00 Clonidine (Catapres) 0.1 mg Q4H PRN PO systolic BP >170; Start 05/22/16 at 21: 30 Epoetin Cayden (Epogen (Esrd)) 2,000 units Hussein@17 SC ; Start 05/28/16 at 17:00 NEHEMIAH SALEH May 23, 2016 13:38
[2016-05-23] MEDS: AZITHROMYCIN 500MG/NS (PMX) 250 ML IVPB SCH (13:53)
--- NOTE | 2016-05-23 14:04 | RADRPT ---
Echocardiogram Report Patient Name: JAYME TURNER Gender: Male Date: 1960 Study Date: 23-May-2016 Issuing Operator: Sara Wick [facility] Location: 503 Ref. Physician: REBEL MONTES Quality: Good Procedures: Transthoracic echocardiogram with complete 2D, M-Mode, and doppler examination. Indications: Aortic Valve stenosis. Congestive Heart Failure. 2D/M Mode Doppler Measurement Value Normal Ranges Measurement Value Normal Ranges LVIDd 2D 4.6 3.5 - 5.6 cm ERYN Vmax 0.7 cm2 LVIDs 2D 3.2 2.1 - 4.1 cm ERYN VTI 0.7 cm2 LVPWd 2D 1.2 0.6 - 1.1 cm AV Mean Jason 2.5 m/sec IVSd 2D 1.4 0.6 - 1.1 cm AV Mean PG 27.5 mmHg AoR Diam 2D 2.6 2.0 - 3.7 cm AV Peak Jason 3.6 m/sec EDV 2D 99.5 cm3 AV Peak PG 50.4 mmHg ESV 2D 31.4 cm3 AV VTI 64.6 cm LA Dimen 2D 4.1 2.3 - 4.0 cm AI Peak PG 46.2 mmHg LVOT Diam 2.0 cm AI Peak Jason 3.4 m/sec AI PHT 490.3 msec LVOT Mean Jason 0.6 m/sec LVOT Mean PG 1.6 mmHg LVOT Peak Jason 0.8 m/sec LVOT Peak PG 2.7 mmHg LVOT VTI 19.4 cm MV E Peak Jason 0.9 m/sec MV A Peak Jason 1.0 m/sec MV E/A 0.9 MV Decel Time 163 msec MV Decel Amite 5 MV E/A 0.9 TR Peak Jason 4.6 m/sec TR Peak PG 84.0 mmHg RVSP 92.0 mmHg Findings Left Ventricle: Normal left ventricular cavity size. Mild concentric left ventricular hypertrophy. Mild left ventricular systolic dysfunction. Ejection fraction is visually estimated at 45 %. Abnormal Diastolic Function. Right Ventricle: Normal right ventricular size. Normal right ventricular systolic function. Left Atrium: There is mild enlargement of left atrium. Right Atrium: The right atrium is normal in size. Mitral Valve: Mitral valve leaflets appear mildly thickened. Mild mitral annular calcification. Mild mitral valve regurgitation. Aortic Valve: Moderate to severe aortic stenosis. Aortic valve Max velocity 3.55 m/sec. Max PG 50.40 mmHg. Mean PG 27.50 mmHg. Aortic cusps appear moderately calcified. Mild aortic valve regurgitation. Tricuspid Valve: Normal appearance of the tricuspid valve. Estimated peak PA systolic pressure 92 mmHg. There is moderate tricuspid regurgitation. Pulmonic Valve: There is trace pulmonic regurgitation. Pericardium: Normal pericardium with no significant pericardial effusion. Aorta: Normal aortic root. IVC: Normal size and no respiratory collapse consistent with elevated right atrial pressure. Conclusions 1.Normal left ventricular cavity size. Mild concentric left ventricular hypertrophy. Mild left ventricular systolic dysfunction. Ejection fraction is visually estimated at 45 %. Abnormal Diastolic Function. 2.Normal right ventricular size. Normal right ventricular systolic function. 3.There is mild enlargement of left atrium. 4.The right atrium is normal in size. 5.Moderate to severe aortic stenosis. Mild aortic valve regurgitation. 6.Mild mitral valve regurgitation. 7.Estimated peak PA systolic pressure 92 mmHg. There is moderate tricuspid regurgitation. 8.Normal pericardium with no significant pericardial effusion. Electronically Signed By: Rebel Montes 23-May-2016 14:03:41 -0800 Patient Name: JAYME TURNER Study Date: 23-May-2016 [id number]
[2016-05-23 14:20] LABS: BASOPHILS % 0.1 % (0.0-2.0); EOSINOPHILS # 0.4 10^3/ul (0.0-0.5); EOSINOPHILS % 7.1 % (0.0-7.0); HEMATOCRIT 26.9 % (42.0-52.0); HEMOGLOBIN 8.8 g/dl (14.0-18.0); LYMPHOCYTES # 0.6 10^3/ul (0.8-2.9); LYMPHOCYTES % 12.5 % (15.0-51.0); MEAN CORPUSCULAR HEMOGLOBIN 30.1 pg (29.0-33.0); MEAN CORPUSCULAR HGB CONC 32.5 g/dl (32.0-37.0); MEAN CORPUSCULAR VOLUME 92.6 fl (82.0-101.0); MEAN PLATELET VOLUME 10.4 fl (7.4-10.4); MONOCYTES % 0.8 % (0.0-11.0); NEUTROPHIL # 4.1 10^3/ul (1.6-7.5); NEUTROPHILS % 79.5 % (39.0-77.0); PLATELET COUNT 43 10^3/UL (140-440); RED CELL DISTRIBUTION WIDTH 17.3 % (11.5-14.5); UNCORRECTED WBC 5.2 10^3/ul (4.8-10.8); WHITE BLOOD COUNT 5.2 10^3/ul (4.8-10.8)
[2016-05-23 14:25] LABS: POTASSIUM 5.2 mmol/L (3.5-5.1)
[2016-05-23 14:26] LABS: CONDITION 1; LH ANALYZER COMMENTS 1
[2016-05-23 14:28] LABS: CREATININE 2.81 mg/dl (0.61-1.24)
[2016-05-23 14:29] LABS: CALCIUM 8.4 mg/dl (8.4-10.2)
[2016-05-23] MEDS: ONDANSETRON 4 MG INJ IV PRN ×2 (15:29→21:12)
--- NOTE | 2016-05-23 20:08 | CONS ---
DATE OF ADMISSION: 05/22/2016 DATE OF CONSULTATION: TYPE OF CONSULTATION: Renal. Thank you Dr. Maloney for asking me to participate in medical management of this patient. REASON FOR CONSULTATION: Renal failure and his chronic kidney disease and history of kidney transpl ant. HISTORY OF PRESENT ILLNESS: This 56-year-old man was admitted from the emergency room yesterday aft er he presented with a cough and chest congestion for 3 to 4 days. The patient said that he has bee n coughing and bringing up mucus. The patient does have a history of congestive heart failure. His chest x-ray did show some mild pulmonary vascular congestion. He also had some wheezing at home be fore he came in. The patient denies any fever or chills. He has had some shortness of breath. The patient does have a history of lower extremity edema; however, he has a very small amount of edema at this time. The patient did undergo a cadaveric renal transplant in 2011 at [facility]. 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 Pancytopenia. He does have a history of chronic kidney disease due to longstanding diabet es mellitus. PAST MEDICAL HISTORY: Remarkable for hypertension, gastroesophageal reflux disease, insulin-depende nt diabetes mellitus, pancytopenia, peripheral neuropathy, peripheral artery disease. PAST SURGICAL HISTORY: Left below the knee amputation, kidney transplant in 2011, cholecystectomy, cataract extraction, tonsillectomy, benign prostatic hypertrophy. FAMILY HISTORY: Father is , diagnosed with diabetes. Mother is alive. SOCIAL HISTORY: The patient does not smoke. He is a former smoker but has not smoked in more than 10 years. He does not drink alcohol. 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 CURRENT MEDICATIONS: 1. Temazepam 30 mg at bedtime p.r.n. sleep. 2. Labetalol 150 mg twice a day. 2. Folic acid 1 mg a day. 3. Prednisone 5 mg a day. 4. Tamsulosin 0.4 mg at bedtime. 5. Insulin, both Lantus 25 units twice a day and NovoLog coverage. 6. Delmy-Mario 1 tablet daily. 7. Sodium bicarbonate 650 mg 2 tablets twice a day. 8. Omeprazole 40 mg a day. 9. Furosemide 40 mg a day. 10. Procrit 20,000 units once a week. PHYSICAL EXAMINATION: GENERAL: At this time reveals a well-developed man in no apparent distress. VITAL SIGNS: Temperature 98.7, pulse is 79, blood pressure 107/74, O2 saturation 99% on room air. HEENT: Head normocephalic. EYES: Extraocular muscles intact. NOSE AND MOUTH: Normal. NECK: Supple. No neck vein distention. LUNGS: Clear to auscultation. HEART: Regular rhythm. No murmurs, gallops or rubs. ABDOMEN: Soft, nontender, no masses or megaly. EXTREMITIES: Left below the knee amputation. Right leg, there is trace pretibial edema. LABORATORY DATA: Done today, sodium 139, potassium 5.2, chloride 102, carbon dioxide 21, BUN 63, cr eatinine 2.81. White blood count 5200, hemoglobin 8.8, hematocrit 26.9, platelet count of 43,000. He did receive a 1-unit blood transfusion yesterday. IMPRESSION: 1. Chronic kidney disease. This patient has a history of chronic kidney disease. He did undergo a cadaveric renal transplant in 2011. However, he has chronic allograft nephropathy/chronic kidney r ejection. He has been getting special treatments at [facility]. He has been getti ng monthly intravenous Prograf. He has also gotten other treatments to try and salvage his kidney a nd kidney function. His serum creatinine has gone up from yesterday to today. He may be getting ov er diuresed. His chest x-ray did show some mild pulmonary vascular congestion. If his serum creati nine continues to rise, then we may have to decrease his furosemide dose. 2. Pancytopenia. The patient is back on CellCept. He was off CellCept for a period of time becaus e of his pancytopenia. 3. History of congestive heart failure. 4. Peripheral artery disease. 5. Hypertension. 6. Insulin-dependent diabetes mellitus. PLAN 1. Continue current medications. However, if his renal function continues to decrease, then I woul d recommend stopping the furosemide. 2. We will have to be careful with continuing CellCept in view of his history of pancytopenia with his current anemia and low platelet count. 3. I will continue to follow the patient along with you. Dictated By: SPRING CHAVEZ MD, ND/MICHAEL Conf#: [id number] [facility]#: [id number]
[2016-05-23] MEDS: TAMSULOSIN (SR) 0.4 MG CAP PO SCH (21:10)
[2016-05-23] MEDS: ZOLPIDEM 5 MG TAB PO PRN (22:22)
[2016-05-23] MEDS: METHYLPREDNISOLONE 40 MG INJ IV SCH (22:22)
[2016-05-24] VITALS (13 sets, daily range): BP systolic 129–152; BP diastolic 65–87; PULSE 76–90; RESP 18–20
[2016-05-24 00:55] LABS: ADD UMIC YES; URINE BILIRUBIN (Dip) NEGATIVE (NEGATIVE); URINE BLOOD (Dip) NEGATIVE (NEGATIVE); URINE COLOR LT. YELLOW (YELLOW); URINE GLUCOSE (Dip) NEGATIVE (NEGATIVE); URINE KETONES (Dip) NEGATIVE (NEGATIVE); URINE LEUKOCYTE ESTERASE (Dip) NEGATIVE (NEGATIVE); URINE NITRITE (Dip) NEGATIVE (NEGATIVE); URINE TOTAL PROTEIN (Dip) 1+ (NEGATIVE); URINE UROBILINOGEN (Dip) 0.2 E.U./dL (0.1-1.0)
[2016-05-24 01:21] LABS: SQUAMOUS EPITHELIAL CELL,UR RARE; URINE RBCS NONE SEEN /HPF (0)
[2016-05-24] MEDS: ACCUCHECK XX SCH (02:00)
[2016-05-24] MEDS: PANTOPRAZOLE (EC) 40 MG TAB PO SCH (06:13)
[2016-05-24] MEDS: LABETALOL 200 MG TAB PO SCH ×3 (06:14→22:03)
[2016-05-24] MEDS: ONDANSETRON 4 MG INJ IV PRN (06:16)
[2016-05-24] MEDS: ALBUTEROL/IPRATROPIUM (NEB) 3 ML AMP HHN PRN (06:28)
[2016-05-24 06:31] LABS: EOSINOPHILS # 0.4 10^3/ul (0.0-0.5); EOSINOPHILS % 9.4 % (0.0-7.0); HEMATOCRIT 25.2 % (42.0-52.0); HEMOGLOBIN 8.3 g/dl (14.0-18.0); LYMPHOCYTES # 0.2 10^3/ul (0.8-2.9); LYMPHOCYTES % 4.8 % (15.0-51.0); MEAN CORPUSCULAR HEMOGLOBIN 30.4 pg (29.0-33.0); MEAN CORPUSCULAR VOLUME 91.9 fl (82.0-101.0); MEAN PLATELET VOLUME 13.4 fl (7.4-10.4); MONOCYTES % 0.4 % (0.0-11.0); NEUTROPHIL # 3.9 10^3/ul (1.6-7.5); NEUTROPHILS % 85.4 % (39.0-77.0); PLATELET COUNT 54 10^3/UL (140-440); RED BLOOD COUNT 2.74 10^6/ul (4.70-6.10); RED CELL DISTRIBUTION WIDTH 16.7 % (11.5-14.5); UNCORRECTED WBC 4.6 10^3/ul (4.8-10.8); WHITE BLOOD COUNT 4.6 10^3/ul (4.8-10.8)
[2016-05-24 06:38] LABS: CONDITION 1; LH ANALYZER COMMENTS 1; SUSPECT 1
[2016-05-24 06:53] LABS: POTASSIUM 5.7 mmol/L (3.5-5.1)
[2016-05-24 06:56] LABS: CREATININE 2.98 mg/dl (0.61-1.24)
[2016-05-24 07:22] LABS: MAGNESIUM 1.6 mg/dl (1.7-2.5); PHOSPHORUS 6.5 mg/dl (2.5-4.9)
[2016-05-24] MEDS: INSULIN ASPART [NOVOLOG] 3 ML PEN SC SCH ×4 (07:55→22:18)
[2016-05-24] MEDS: MYCOPHENOLATE 250 MG CAP PO SCH ×2 (08:16→22:02)
[2016-05-24] MEDS: FUROSEMIDE 40 MG TAB PO SCH (08:17)
[2016-05-24] MEDS: AZITHROMYCIN 250 MG TAB PO SCH (08:17)
[2016-05-24] MEDS: MULTIVIT/CA CARB/B CMPLX/FA TAB PO SCH (08:17)
[2016-05-24] MEDS: NA BICARBONATE 650 MG TAB PO SCH ×2 (08:17→22:02)
[2016-05-24] MEDS: FOLIC ACID 1 MG TAB PO SCH ×2 (08:17→22:02)
[2016-05-24] MEDS: METHYLPREDNISOLONE 40 MG INJ IV SCH ×2 (08:17→22:02)
[2016-05-24] MEDS: INSULIN GLARGINE [LANtus] 3 ML PEN SC SCH ×2 (08:24→22:18)
[2016-05-24] MEDS: ALBUTEROL/IPRATROPIUM (NEB) 3 ML AMP HHN SCH ×3 (09:03→20:51)
[2016-05-24] MEDS: CEFTRIAXONE 1 GM/50 ML (PMX) 50 ML IVPB SCH (11:51)
[2016-05-24] MEDS ORDERED: NA POLYST SULFON 15 GM/60 ML BTL PO ONE (14:00)
--- NOTE | 2016-05-24 14:03 | CONS ---
Date/Time of Note Date/Time of Note DATE: 05/24/16 TIME: 13:57 Assessment/Plan Assessment/Plan Chief Complaint/Hosp Course 1. CKD , renal function is decreasing , I will D/C Furosemide 2. 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 hyperkalemia secondary to # 1 , treat with Kayexalate 4 pancytopenia .due to bone marrow suppression 5 .acute bronchitis , resolving Problems: Consultation Date/Type/Reason Admit Date/Time May 22, 2016 at 08:44 Initial Consult Date Type of Consultation: cv 24 HR Interval Summary Free Text/Dictation He is feeling better today . Constitutional: improved, no complaints Exam/Review of Systems Vital Signs Vitals Vital Signs Date Time Temp Pulse Resp B/P Pulse Ox O2 Delivery O2 Flow Rate FiO2 05/24/16 13:28 86 152/75 05/24/16 09:04 20 97 21 05/24/16 07:42 98.3 05/24/16 06:16 Room Air 05/22/16 05:33 10 Intake and Output 05/23/16 05/23/16 05/24/16 15:00 23:00 07:00 Intake Total 300 ml 600 ml 400 ml Output Total 300 ml 500 ml Balance 300 ml 300 ml -100 ml Exam S/P L BKA , no edema R leg . Constitutional: alert, oriented Psych: no complaints Respiratory: clear to auscultation Cardiovascular: regular rate and rhythm Results Result Diagram: 05/24/16 0540 05/24/16 0540 Results 24 hrs Laboratory Tests Test 05/23/16 17:26 05/23/16 20:20 05/23/16 20:45 05/24/16 05:40 Bedside Glucose 85 103 Urine Bilirubin NEGATIVE Urine Clarity CLEAR Urine Color LT. YELLOW Urine Glucose NEGATIVE Urine Hemoglobin NEGATIVE Urine Ketones NEGATIVE Urine Leukocyte Esterase NEGATIVE Urine Microscopic RBC NONE SEEN Urine Microscopic WBC NONE SEEN Urine Nitrite NEGATIVE Urine Specific [place] 1.020 Urine Squamous Epithelial Cells RARE Urine Total Protein 1+ H Urine Urobilinogen 0.2 E.U./dL Urine pH 6.0 Anion Gap 21 H Basophils # 0.0 Basophils % 0.0 Blood Morphology Comment Blood Urea Nitrogen 72 H Calcium Level 8.0 L Carbon Dioxide Level 18 L Chloride Level 102 Creatinine 2.98 H Eosinophils # 0.4 Eosinophils % 9.4 H Glucose Level 69 L Hematocrit 25.2 L Hemoglobin 8.3 L Lymphocytes # 0.2 L Lymphocytes % 4.8 L Magnesium Level 1.6 L Mean Corpuscular Hemoglobin 30.4 Mean Corpuscular Hemoglobin Concent 33.0 Mean Corpuscular Volume 91.9 Mean Platelet Volume 13.4 #H Monocytes # 0.0 L Monocytes % 0.4 Neutrophils # 3.9 Neutrophils % 85.4 H Nucleated Red Blood Cells # 0.0 Nucleated Red Blood Cells % 0.0 Phosphorus Level 6.5 H Platelet Count 54 #L Potassium Level 5.7 H Red Blood Count 2.74 L Red Cell Distribution Width 16.7 H Sodium Level 135 White Blood Count 4.6 L Test 05/24/16 08:15 05/24/16 11:26 Bedside Glucose 81 164 Medications Medications Current Medications Ceftriaxone Sodium (Rocephin) 50 ml @ 100 mls/hr Q24H IVPB Last administered on 05/24/16 11:51; Admin Dose 100 MLS/HR; Start 05/22/16 at 12:30 Multivit/Ca Carb/ B Cmplx/FA/Prenat (Delmy-Mario) 1 tab DAILY PO Last administered on 05/24/16 08:17; Admin Dose 1 TAB; Start 05/23/16 at 09:00 Mycophenolate Mofetil (Cellcept) 500 mg BID PO Last administered on 05/24/16 08:16; Admin Dose 500 MG; Start 05/22/16 at 21:00 Tamsulosin HCl (Flomax) 0.4 mg HS PO Last administered on 05/23/16 21:10; Admin Dose 0.4 MG; Start 05/22/16 at 21:00 Zolpidem Tartrate (Ambien) 5 mg QHS PRN PO INSOMNIA Last administered on 22:22; Admin Dose 5 MG; Start 05/22/16 at 12:30 Miscellaneous Information 1 ea NOTE XX ; Start 05/22/16 at 13:00 Glucose (Glutose) 15 gm Q15M PRN PO DECREASED GLUCOSE; Start 05/22/16 at 13:00 Glucose (Glutose) 22.5 gm Q15M PRN PO DECREASED GLUCOSE; Start 05/22/16 at 13: 00 Dextrose (D50w Syringe) 25 ml Q15M PRN IV DECREASED GLUCOSE; Start 05/22/16 at 13:00 Dextrose (D50w Syringe) 50 ml Q15M PRN IV DECREASED GLUCOSE; Start 05/22/16 at 13:00 Glucagon (Glucagen) 1 mg Q15M PRN IM DECREASED GLUCOSE; Start 05/22/16 at 13:00 Glucose (Glutose) 15 gm Q15M PRN BUCCAL DECREASED GLUCOSE; Start 05/22/16 at 13 :00 Pantoprazole (Protonix Tab) 40 mg DAILY@06 PO Last administered on 05/24/16 06 :13; Admin Dose 40 MG; Start 05/23/16 at 06:00 Folic Acid (Folic Acid) 1 mg BID PO Last administered on 05/24/16 08:17; Admin Dose 1 MG; Start 05/22/16 at 21:00 Diagnostic Test (Pha) (Accucheck) 1 ea 02 XX ; Start 05/23/16 at 02:00 Sodium Bicarbonate (Sodium Bicarbonate Tab) 1,300 mg BID PO Last administered on 05/24/16 08:17; Admin Dose 1,300 MG; Start 05/22/16 at 21:00 Furosemide (Lasix) 40 mg DAILY PO Last administered on 05/24/16 08:17; Admin Dose 40 MG; Start 05/23/16 at 09:00 Ondansetron HCl (Zofran Inj) 4 mg Q4H PRN IV NAUSEA AND/OR VOMITING Last administered on 05/24/16 06:16; Admin Dose 4 MG; Start 05/22/16 at 20:30 Morphine Sulfate (morphine) 4 mg Q4H PRN IV PAIN Last administered on 20:43; Admin Dose 4 MG; Start 05/22/16 at 20:30 Acetaminophen (Tylenol Tab) 650 mg Q4H PRN PO PAIN AND OR ELEVATED TEMP; Start 05/22/16 at 20:30 Labetalol HCl (Normodyne) 200 mg Q8 PO Last administered on 05/24/16 13:29; Admin Dose 200 MG; Start 05/22/16 at 22:00 Hydralazine HCl (Apresoline) 10 mg Q6H PRN IV sbp>170; Start 05/22/16 at 21:00 Clonidine (Catapres) 0.1 mg Q4H PRN PO systolic BP >170; Start 1/16/17 at 21: 30 Azithromycin (Zithromax) 250 mg DAILY PO Last administered on 05/24/16 08:17; Admin Dose 250 MG; Start 05/24/16 at 09:00; Stop 05/26/16 at 08:59 Epoetin Cayden (Epogen (Esrd)) 10,000 units MoWeFr@17 SC ; Start 05/24/16 at 17:00 Insulin Glargine (Lantus) 25 unit DAILY SC Last administered on 05/24/16 08:24 ; Admin Dose 25 UNIT; Start 05/24/16 at 09:00 Methylprednisolone Sodium Succinate (Solu-Medrol) 40 mg Q12 IV Last administered on 05/24/16 08:17; Admin Dose 40 MG; Start 05/23/16 at 22:30 SPRING CHAVEZ MD May 24, 2016 14:03
--- NOTE | 2016-05-24 14:31 | CONS ---
Date/Time of Note Date/Time of Note DATE: 05/24/16 TIME: 14:29 Assessment/Plan Assessment/Plan Additional Assessment/Plan Dyspnea Acute decompensated systolic and diastolic congestive heart failure Aortic stenosis Tricuspid valve regurgitation Pulmonary hypertension Severe anemia status post blood transfusion Hypertension Peripheral arterial disease Chronic kidney disease with history of renal transplant Moderate carotid artery stenosis -Agree with stopping diuretics given renal function has worsened, patient feeling better. Review of echocardiogram demonstrates mild worsening of aortic valve stenosis. Patient now with moderate tricuspid valve regurgitation and severe pulmonary hypertension. Left ventricular systolic ejection fraction has decreased 45%. Would try a trial of sildenafil if blood pressure tolerates. Consultation Date/Type/Reason Admit Date/Time May 22, 2016 at 08:44 Type of Consultation: cv 24 HR Interval Summary Free Text/Dictation Shortness of breath is much better, cough has improved, denies chest pain Exam/Review of Systems Vital Signs Vitals Vital Signs Date Time Temp Pulse Resp B/P Pulse Ox O2 Delivery O2 Flow Rate FiO2 05/24/16 13:28 86 152/75 05/24/16 09:04 20 97 21 05/24/16 07:42 98.3 05/24/16 06:16 Room Air 05/22/16 05:33 10 Intake and Output 05/23/16 05/23/16 05/24/16 15:00 23:00 07:00 Intake Total 300 ml 600 ml 400 ml Output Total 300 ml 500 ml Balance 300 ml 300 ml -100 ml Exam Sitting up, no apparent distress Constitutional: alert, oriented Head: normocephalic Neck: supple Respiratory: other (course breath sounds bilaterally, no wheezing) Cardiovascular: other (S1-S2 heard), regular rate and rhythm, systolic murmur Gastrointestinal: bowel sounds, non-tender, soft Extremities: edema (trace) Results Result Diagram: 05/24/16 0540 05/24/16 0540 Results 24 hrs Laboratory Tests Test 05/23/16 17:26 05/23/16 20:20 05/23/16 20:45 05/24/16 05:40 Bedside Glucose 85 103 Urine Bilirubin NEGATIVE Urine Clarity CLEAR Urine Color LT. YELLOW Urine Glucose NEGATIVE Urine Hemoglobin NEGATIVE Urine Ketones NEGATIVE Urine Leukocyte Esterase NEGATIVE Urine Microscopic RBC NONE SEEN Urine Microscopic WBC NONE SEEN Urine Nitrite NEGATIVE Urine Specific [place] 1.020 Urine Squamous Epithelial Cells RARE Urine Total Protein 1+ H Urine Urobilinogen 0.2 E.U./dL Urine pH 6.0 Anion Gap 21 H Basophils # 0.0 Basophils % 0.0 Blood Morphology Comment Blood Urea Nitrogen 72 H Calcium Level 8.0 L Carbon Dioxide Level 18 L Chloride Level 102 Creatinine 2.98 H Eosinophils # 0.4 Eosinophils % 9.4 H Glucose Level 69 L Hematocrit 25.2 L Hemoglobin 8.3 L Lymphocytes # 0.2 L Lymphocytes % 4.8 L Magnesium Level 1.6 L Mean Corpuscular Hemoglobin 30.4 Mean Corpuscular Hemoglobin Concent 33.0 Mean Corpuscular Volume 91.9 Mean Platelet Volume 13.4 #H Monocytes # 0.0 L Monocytes % 0.4 Neutrophils # 3.9 Neutrophils % 85.4 H Nucleated Red Blood Cells # 0.0 Nucleated Red Blood Cells % 0.0 Phosphorus Level 6.5 H Platelet Count 54 #L Potassium Level 5.7 H Red Blood Count 2.74 L Red Cell Distribution Width 16.7 H Sodium Level 135 White Blood Count 4.6 L Test 05/24/16 08:15 05/24/16 11:26 Bedside Glucose 81 164 Medications Medications Current Medications Ceftriaxone Sodium (Rocephin) 50 ml @ 100 mls/hr Q24H IVPB Last administered on 05/24/16 11:51; Admin Dose 100 MLS/HR; Start 05/22/16 at 12:30 Multivit/Ca Carb/ B Cmplx/FA/Prenat (Delmy-Mario) 1 tab DAILY PO Last administered on 05/24/16 08:17; Admin Dose 1 TAB; Start 05/23/16 at 09:00 Mycophenolate Mofetil (Cellcept) 500 mg BID PO Last administered on 05/24/16 08:16; Admin Dose 500 MG; Start 05/22/16 at 21:00 Tamsulosin HCl (Flomax) 0.4 mg HS PO Last administered on 05/23/16 21:10; Admin Dose 0.4 MG; Start 05/22/16 at 21:00 Zolpidem Tartrate (Ambien) 5 mg QHS PRN PO INSOMNIA Last administered on 22:22; Admin Dose 5 MG; Start 05/22/16 at 12:30 Miscellaneous Information 1 ea NOTE XX ; Start 05/22/16 at 13:00 Glucose (Glutose) 15 gm Q15M PRN PO DECREASED GLUCOSE; Start 05/22/16 at 13:00 Glucose (Glutose) 22.5 gm Q15M PRN PO DECREASED GLUCOSE; Start 05/22/16 at 13: 00 Dextrose (D50w Syringe) 25 ml Q15M PRN IV DECREASED GLUCOSE; Start 05/22/16 at 13:00 Dextrose (D50w Syringe) 50 ml Q15M PRN IV DECREASED GLUCOSE; Start 05/22/16 at 13:00 Glucagon (Glucagen) 1 mg Q15M PRN IM DECREASED GLUCOSE; Start 05/22/16 at 13:00 Glucose (Glutose) 15 gm Q15M PRN BUCCAL DECREASED GLUCOSE; Start 05/22/16 at 13 :00 Pantoprazole (Protonix Tab) 40 mg DAILY@06 PO Last administered on 05/24/16 06 :13; Admin Dose 40 MG; Start 05/23/16 at 06:00 Folic Acid (Folic Acid) 1 mg BID PO Last administered on 05/24/16 08:17; Admin Dose 1 MG; Start 05/22/16 at 21:00 Diagnostic Test (Pha) (Accucheck) 1 ea 02 XX ; Start 05/23/16 at 02:00 Sodium Bicarbonate (Sodium Bicarbonate Tab) 1,300 mg BID PO Last administered on 05/24/16 08:17; Admin Dose 1,300 MG; Start 05/22/16 at 21:00 Ondansetron HCl (Zofran Inj) 4 mg Q4H PRN IV NAUSEA AND/OR VOMITING Last administered on 05/24/16 06:16; Admin Dose 4 MG; Start 05/22/16 at 20:30 Morphine Sulfate (morphine) 4 mg Q4H PRN IV PAIN Last administered on 20:43; Admin Dose 4 MG; Start 05/22/16 at 20:30 Acetaminophen (Tylenol Tab) 650 mg Q4H PRN PO PAIN AND OR ELEVATED TEMP; Start 05/22/16 at 20:30 Labetalol HCl (Normodyne) 200 mg Q8 PO Last administered on 05/24/16 13:29; Admin Dose 200 MG; Start 05/22/16 at 22:00 Hydralazine HCl (Apresoline) 10 mg Q6H PRN IV sbp>170; Start 05/22/16 at 21:00 Clonidine (Catapres) 0.1 mg Q4H PRN PO systolic BP >170; Start 05/22/16 at 21: 30 Azithromycin (Zithromax) 250 mg DAILY PO Last administered on 05/24/16 08:17; Admin Dose 250 MG; Start 05/24/16 at 09:00; Stop 05/26/16 at 08:59 Epoetin Cayden (Epogen (Esrd)) 10,000 units MoWeFr@17 SC ; Start 05/24/16 at 17:00 Insulin Glargine (Lantus) 25 unit DAILY SC Last administered on 05/24/16 08:24 ; Admin Dose 25 UNIT; Start 05/24/16 at 09:00 Methylprednisolone Sodium Succinate (Solu-Medrol) 40 mg Q12 IV Last administered on 05/24/16 08:17; Admin Dose 40 MG; Start 05/23/16 at 22:30 Pneumococcal Polyvalent Vaccine (Pneumovax-23) 0.5 ml ONCE ONCE IM* ; Start at 15:30; Stop 05/24/16 at 15:31 Rebel Montes DO May 24, 2016 14:30
[2016-05-24] MEDS ORDERED: PNEUMOCOCCAL VACCINE 0.5 ML INJ IM* ONE ×2 (15:00→15:30)
[2016-05-24] MEDS: SILDENAFIL 20 MG TAB PO SCH ×2 (15:24→22:03)
--- NOTE | 2016-05-24 15:47 | PN ---
Date/Time of Note Date/Time of Note DATE: 05/24/16 TIME: 15:44 Assessment/Plan VTE Prophylaxis VTE Prophylaxis Intervention: SCD's Lines/Catheters IV [facility]ter [facility]from [facility] Urinary Cath still in place: No Assessment/Plan Chief Complaint/Hosp Course ASSESSMENT AND PLAN: 1. Congestive heart failure exacerbation. Unable to tolerate Lasix due to worsening of renal function. Dr. Montes is following in cardiology consultation. 2. Possible community-acquired pneumonia vs acute bronchitis. continue Rocephin, Zithromax. 3. Kidney failure, status post transplant, chronic rejection. Dr. Bonilla is following in nephrology consultation. Continue patient on prednisone and Prograf. 4. Anemia, s/p 1 unit of packed red blood cells transfusion. Monitor hemoglobin and hematocrit 5. Diabetes mellitus type 2. Continue NovoLog and Lantus, monitor blood sugar. 6. Hypertension. Continue to monitor blood pressure. Continue Toprol-XL. 7. Aortic valve stenosis. 8. Pulmonary hypertension, started on sildenafil. 9. Hyperkalemia, status post Kayexalate. Continue Protonix for peptic ulcer disease prophylaxis. Sequential compression devices for deep venous thrombosis prophylaxis. Further recommendations based on clinical course. Plan of care discussed with Dr. Farley who is currently covering for Dr. Maloney. Problems: Subjective 24 Hr Interval Summary Free Text/Dictation Patient stated he feels better, denies fever nausea vomiting. Exam/Review of Systems Vital Signs Vitals Vital Signs Date Time Temp Pulse Resp B/P Pulse Ox O2 Delivery O2 Flow Rate FiO2 05/24/16 13:28 86 152/75 05/24/16 12:03 98.0 18 98 05/24/16 09:04 21 05/24/16 06:16 Room Air 05/22/16 05:33 10 Intake and Output 05/23/16 05/23/16 05/24/16 15:00 23:00 07:00 Intake Total 300 ml 600 ml 400 ml Output Total 300 ml 500 ml Balance 300 ml 300 ml -100 ml Exam GENERAL: This is a well-developed, well-nourished male, currently awake, alert. HEENT: Head is atraumatic, normocephalic. Left eye blindness. NECK: Supple. JVD is present, no lymphadenopathy. RESPIRATORY: Bilateral rhonchi, slightly diminished at the bases. CARDIOVASCULAR: Normal S1, S2. No murmurs, gallops, clicks, rubs noted. ABDOMEN: Protuberant, soft, nondistended, nontender. Bowel sounds present. No guarding, no rebound tenderness. EXTREMITIES: The patient has a left BKA. SKIN: There is no rash, petechiae noted. NEUROLOGIC: Patient is awake, alert and oriented x3. Results Result Diagram: 05/24/16 0540 05/24/16 0540 Results 24 hrs Laboratory Tests Test 05/23/16 17:26 05/23/16 20:20 05/23/16 20:45 05/24/16 05:40 Bedside Glucose 85 103 Urine Bilirubin NEGATIVE Urine Clarity CLEAR Urine Color LT. YELLOW Urine Glucose NEGATIVE Urine Hemoglobin NEGATIVE Urine Ketones NEGATIVE Urine Leukocyte Esterase NEGATIVE Urine Microscopic RBC NONE SEEN Urine Microscopic WBC NONE SEEN Urine Nitrite NEGATIVE Urine Specific [place] 1.020 Urine Squamous Epithelial Cells RARE Urine Total Protein 1+ H Urine Urobilinogen 0.2 E.U./dL Urine pH 6.0 Anion Gap 21 H Basophils # 0.0 Basophils % 0.0 Blood Morphology Comment Blood Urea Nitrogen 72 H Calcium Level 8.0 L Carbon Dioxide Level 18 L Chloride Level 102 Creatinine 2.98 H Eosinophils # 0.4 Eosinophils % 9.4 H Glucose Level 69 L Hematocrit 25.2 L Hemoglobin 8.3 L Lymphocytes # 0.2 L Lymphocytes % 4.8 L Magnesium Level 1.6 L Mean Corpuscular Hemoglobin 30.4 Mean Corpuscular Hemoglobin Concent 33.0 Mean Corpuscular Volume 91.9 Mean Platelet Volume 13.4 #H Monocytes # 0.0 L Monocytes % 0.4 Neutrophils # 3.9 Neutrophils % 85.4 H Nucleated Red Blood Cells # 0.0 Nucleated Red Blood Cells % 0.0 Phosphorus Level 6.5 H Platelet Count 54 #L Potassium Level 5.7 H Red Blood Count 2.74 L Red Cell Distribution Width 16.7 H Sodium Level 135 White Blood Count 4.6 L Test 05/24/16 08:15 05/24/16 11:26 Bedside Glucose 81 164 Medications Medications Current Medications Ceftriaxone Sodium (Rocephin) 50 ml @ 100 mls/hr Q24H IVPB Last administered on 05/24/16t 11:51; Admin Dose 100 MLS/HR; Start 05/22/16 at 12:30 Multivit/Ca Carb/ B Cmplx/FA/Prenat (Delmy-Mario) 1 tab DAILY PO Last administered on 05/24/16 08:17; Admin Dose 1 TAB; Start 05/23/16 at 09:00 Mycophenolate Mofetil (Cellcept) 500 mg BID PO Last administered on 05/24/16 08:16; Admin Dose 500 MG; Start 05/22/16 at 21:00 Tamsulosin HCl (Flomax) 0.4 mg HS PO Last administered on 05/23/16 21:10; Admin Dose 0.4 MG; Start 05/22/16 at 21:00 Zolpidem Tartrate (Ambien) 5 mg QHS PRN PO INSOMNIA Last administered on 22:22; Admin Dose 5 MG; Start 05/22/16 at 12:30 Miscellaneous Information 1 ea NOTE XX ; Start 05/22/16 at 13:00 Glucose (Glutose) 15 gm Q15M PRN PO DECREASED GLUCOSE; Start 05/22/16 at 13:00 Glucose (Glutose) 22.5 gm Q15M PRN PO DECREASED GLUCOSE; Start 05/22/16 at 13: 00 Dextrose (D50w Syringe) 25 ml Q15M PRN IV DECREASED GLUCOSE; Start 05/22/16 at 13:00 Dextrose (D50w Syringe) 50 ml Q15M PRN IV DECREASED GLUCOSE; Start 05/22/16 at 13:00 Glucagon (Glucagen) 1 mg Q15M PRN IM DECREASED GLUCOSE; Start 05/22/16 at 13:00 Glucose (Glutose) 15 gm Q15M PRN BUCCAL DECREASED GLUCOSE; Start 05/22/16 at 13 :00 Pantoprazole (Protonix Tab) 40 mg DAILY@06 PO Last administered on 05/24/16 06 :13; Admin Dose 40 MG; Start 05/23/16 at 06:00 Folic Acid (Folic Acid) 1 mg BID PO Last administered on 05/24/16 08:17; Admin Dose 1 MG; Start 05/22/16 at 21:00 Diagnostic Test (Pha) (Accucheck) 1 ea 02 XX ; Start 05/23/16 at 02:00 Sodium Bicarbonate (Sodium Bicarbonate Tab) 1,300 mg BID PO Last administered on 05/24/16 08:17; Admin Dose 1,300 MG; Start 05/22/16 at 21:00 Ondansetron HCl (Zofran Inj) 4 mg Q4H PRN IV NAUSEA AND/OR VOMITING Last administered on 05/24/16 06:16; Admin Dose 4 MG; Start 05/22/16 at 20:30 Morphine Sulfate (morphine) 4 mg Q4H PRN IV PAIN Last administered on 20:43; Admin Dose 4 MG; Start 05/22/16 at 20:30 Acetaminophen (Tylenol Tab) 650 mg Q4H PRN PO PAIN AND OR ELEVATED TEMP; Start 05/22/16 at 20:30 Labetalol HCl (Normodyne) 200 mg Q8 PO Last administered on 05/24/16 13:29; Admin Dose 200 MG; Start 05/22/16 at 22:00 Hydralazine HCl (Apresoline) 10 mg Q6H PRN IV sbp>170; Start 05/22/16 at 21:00 Clonidine (Catapres) 0.1 mg Q4H PRN PO systolic BP >170; Start 05/22/16 at 21: 30 Azithromycin (Zithromax) 250 mg DAILY PO Last administered on 05/24/16 08:17; Admin Dose 250 MG; Start 05/24/16 at 09:00; Stop 05/26/16 at 08:59 Epoetin [place] (Epogen (Esrd)) 10,000 units MoWeFr@17 SC ; Start 05/24/16 at 17:00 Insulin Glargine (Lantus) 25 unit DAILY SC Last administered on 05/24/16 08:24 ; Admin Dose 25 UNIT; Start 05/24/16 at 09:00 Methylprednisolone Sodium Succinate (Solu-Medrol) 40 mg Q12 IV Last administered on 05/24/16 08:17; Admin Dose 40 MG; Start 05/23/16 at 22:30 Sildenafil Citrate (Revatio) 20 mg BID PO Last administered on 05/24/16 15:24 ; Admin Dose 20 MG; Start 05/24/16 at 15:00 Pneumococcal Polyvalent Vaccine (Pneumovax-23) 0.5 ml ONCE ONCE IM* ; Start at 15:00; Stop 05/24/16 at 15:01; Status UNV Miscellaneous Information (*Order Clarification Bulletin) MEDICATION REQUIRES CLARIFICATI... Q24H XX ; Start 05/25/16 at 09:00 NEHEMIAH SALEH May 24, 2016 15:47
[2016-05-24] MEDS ORDERED: MAGNESIUM SULFATE 2 GM/50 ML 50 ML IVPB ONE (16:00)
[2016-05-24] MEDS ORDERED: EPOETIN 10000 UNITS/1 ML INJ (ESRD) SC SCH (17:00)
[2016-05-24] MEDS: TAMSULOSIN (SR) 0.4 MG CAP PO SCH (22:02)
[2016-05-24] MEDS: morphine 4 MG/ML VIAL IV PRN (22:24)
[2016-05-25] VITALS (13 sets, daily range): BP systolic 116–148; BP diastolic 67–73; PULSE 76–81; RESP 13–20
[2016-05-25] MEDS: ZOLPIDEM 5 MG TAB PO PRN ×2 (00:48→22:34)
[2016-05-25] MEDS: ACCUCHECK XX SCH (01:55)
[2016-05-25] MEDS: LABETALOL 200 MG TAB PO SCH ×3 (06:21→22:35)
[2016-05-25] MEDS: PANTOPRAZOLE (EC) 40 MG TAB PO SCH (06:22)
[2016-05-25 06:56] LABS: EOSINOPHILS # 0.3 10^3/ul (0.0-0.5); EOSINOPHILS % 5.4 % (0.0-7.0); HEMATOCRIT 25.4 % (42.0-52.0); HEMOGLOBIN 8.4 g/dl (14.0-18.0); LYMPHOCYTES # 0.8 10^3/ul (0.8-2.9); LYMPHOCYTES % 16.3 % (15.0-51.0); MEAN CORPUSCULAR HEMOGLOBIN 30.4 pg (29.0-33.0); MEAN CORPUSCULAR VOLUME 92.2 fl (82.0-101.0); MEAN PLATELET VOLUME 10.8 fl (7.4-10.4); MONOCYTES % 0.4 % (0.0-11.0); NEUTROPHIL # 3.7 10^3/ul (1.6-7.5); NEUTROPHILS % 77.9 % (39.0-77.0); RED BLOOD COUNT 2.76 10^6/ul (4.70-6.10); RED CELL DISTRIBUTION WIDTH 16.9 % (11.5-14.5); UNCORRECTED WBC 4.7 10^3/ul (4.8-10.8); WHITE BLOOD COUNT 4.7 10^3/ul (4.8-10.8)
[2016-05-25 07:04] LABS: ALBUMIN 3.7 g/dl (3.3-4.9)
[2016-05-25 07:05] LABS: POTASSIUM 4.9 mmol/L (3.5-5.1)
[2016-05-25 07:07] LABS: CONDITION 1; LH ANALYZER COMMENTS 1
[2016-05-25 07:07] LABS: CREATININE 3.15 mg/dl (0.61-1.24)
[2016-05-25 07:08] LABS: PLATELET COUNT 44 10^3/UL (140-440)
[2016-05-25 07:08] LABS: ALBUMIN/GLOBULIN RATIO 1.08; CALCIUM 7.9 mg/dl (8.4-10.2); TOTAL PROTEIN 7.1 g/dl (6.1-8.1)
[2016-05-25] MEDS: ALBUTEROL/IPRATROPIUM (NEB) 3 ML AMP HHN SCH ×3 (07:41→19:46)
[2016-05-25] MEDS: INSULIN GLARGINE [LANtus] 3 ML PEN SC SCH ×2 (08:31→20:26)
[2016-05-25] MEDS: INSULIN ASPART [NOVOLOG] 3 ML PEN SC SCH ×4 (08:32→20:26)
[2016-05-25] MEDS: METHYLPREDNISOLONE 40 MG INJ IV SCH ×2 (08:36→20:24)
[2016-05-25] MEDS: FOLIC ACID 1 MG TAB PO SCH ×2 (08:37→20:24)
[2016-05-25] MEDS: MYCOPHENOLATE 250 MG CAP PO SCH ×2 (08:37→22:35)
[2016-05-25] MEDS: MULTIVIT/CA CARB/B CMPLX/FA TAB PO SCH (08:37)
[2016-05-25] MEDS: NA BICARBONATE 650 MG TAB PO SCH ×2 (08:38→20:24)
[2016-05-25] MEDS: AZITHROMYCIN 250 MG TAB PO SCH (08:38)
[2016-05-25] MEDS: SILDENAFIL 20 MG TAB PO SCH ×2 (08:54→20:24)
[2016-05-25] MEDS ORDERED: [UNRECOGNIZED DRUG - REMARK] XX SCH (09:00)
--- NOTE | 2016-05-25 09:52 | CONS ---
Date/Time of Note Date/Time of Note DATE: 05/25/16 TIME: 09:50 Assessment/Plan Assessment/Plan Chief Complaint/Hosp Course 1. CKD , renal function is decreasing , he is now off furosemide 2. 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 hyperkalemia secondary to # 1 , treat with Kayexalate , K is now normal . 4 pancytopenia .due to bone marrow suppression 5 .acute bronchitis , resolving Problems: Consultation Date/Type/Reason Admit Date/Time May 22, 2016 at 08:44 Type of Consultation: cv 24 HR Interval Summary Free Text/Dictation He is having some coughing and wheezing . I did reduce his solumedrol dose yesterday . Exam/Review of Systems Vital Signs Vitals Vital Signs Date Time Temp Pulse Resp B/P Pulse Ox O2 Delivery O2 Flow Rate FiO2 05/25/16 08:03 76 05/25/16 07:55 98.0 16 148/72 98 Room Air 05/25/16 07:42 21 05/22/16 05:33 10 Intake and Output 05/24/16 05/24/16 05/25/16 15:00 23:00 07:00 Intake Total 750 ml 400 ml Output Total 700 ml 550 ml Balance 50 ml -150 ml Exam Constitutional: alert, oriented, well developed Respiratory: wheezing Cardiovascular: regular rate and rhythm Gastrointestinal: soft Extremities: edema Results Result Diagram: 05/25/16 0620 05/25/16 0600 Results 24 hrs Laboratory Tests Test 05/24/16 11:26 05/24/16 16:47 05/24/16 20:14 05/25/16 01:50 Bedside Glucose 164 291 H 337 H 237 H Test 05/25/16 06:00 05/25/16 06:20 05/25/16 07:31 Alanine Aminotransferase (ALT/SGPT) 41 Albumin 3.7 Albumin/Globulin Ratio 1.08 Alkaline Phosphatase 155 H Anion Gap 21 H Aspartate Amino Transf (AST/SGOT) 48 H Blood Urea Nitrogen 78 H Calcium Level 7.9 L Carbon Dioxide Level 18 L Chloride Level 102 Creatinine 3.15 H Direct Bilirubin 0.00 Globulin 3.40 H Glucose Level 186 # Indirect Bilirubin 0.0 Potassium Level 4.9 Sodium Level 136 Total Bilirubin 0.0 L Total Protein 7.1 Basophils # 0.0 Basophils % 0.0 Blood Morphology Comment Eosinophils # 0.3 Eosinophils % 5.4 Hematocrit 25.4 L Hemoglobin 8.4 L Lymphocytes # 0.8 Lymphocytes % 16.3 Mean Corpuscular Hemoglobin 30.4 Mean Corpuscular Hemoglobin Concent 33.0 Mean Corpuscular Volume 92.2 Mean Platelet Volume 10.8 H Monocytes # 0.0 L Monocytes % 0.4 Neutrophils # 3.7 Neutrophils % 77.9 H Nucleated Red Blood Cells # 0.0 Nucleated Red Blood Cells % 0.0 Platelet Count 44 L Red Blood Count 2.76 L Red Cell Distribution Width 16.9 H White Blood Count 4.7 L Bedside Glucose 222 H Medications Medications Current Medications Ceftriaxone Sodium (Rocephin) 50 ml @ 100 mls/hr Q24H IVPB Last administered on 05/24/16 11:51; Admin Dose 100 MLS/HR; Start 05/22/16 at 12:30 Multivit/Ca Carb/ B Cmplx/FA/Prenat (Delmy-Mario) 1 tab DAILY PO Last administered on 05/25/16 08:37; Admin Dose 1 TAB; Start 05/23/16 at 09:00 Mycophenolate Mofetil (Cellcept) 500 mg BID PO Last administered on 05/25/16 08:37; Admin Dose 500 MG; Start 05/22/16 at 21:00 Tamsulosin HCl (Flomax) 0.4 mg HS PO Last administered on 05/24/16 22:02; Admin Dose 0.4 MG; Start 05/22/16 at 21:00 Zolpidem Tartrate (Ambien) 5 mg QHS PRN PO INSOMNIA Last administered on 00:48; Admin Dose 5 MG; Start 05/22/16 at 12:30 Miscellaneous Information 1 ea NOTE XX ; Start 05/22/16 at 13:00 Glucose (Glutose) 15 gm Q15M PRN PO DECREASED GLUCOSE; Start 05/22/16 at 13:00 Glucose (Glutose) 22.5 gm Q15M PRN PO DECREASED GLUCOSE; Start 05/22/16 at 13: 00 Dextrose (D50w Syringe) 25 ml Q15M PRN IV DECREASED GLUCOSE; Start 05/22/16 at 13:00 Dextrose (D50w Syringe) 50 ml Q15M PRN IV DECREASED GLUCOSE; Start 05/22/16 at 13:00 Glucagon (Glucagen) 1 mg Q15M PRN IM DECREASED GLUCOSE; Start 05/22/16 at 13:00 Glucose (Glutose) 15 gm Q15M PRN BUCCAL DECREASED GLUCOSE; Start 05/22/16 at 13 :00 Pantoprazole (Protonix Tab) 40 mg DAILY@06 PO Last administered on 05/25/16 06 :22; Admin Dose 40 MG; Start 05/23/16 at 06:00 Folic Acid (Folic Acid) 1 mg BID PO Last administered on 05/25/16 08:37; Admin Dose 1 MG; Start 05/22/16 at 21:00 Diagnostic Test (Pha) (Accucheck) 1 ea 02 XX Last administered on 05/25/16 01: 55; Admin Dose 1 EA; Start 05/23/16 at 02:00 Sodium Bicarbonate (Sodium Bicarbonate Tab) 1,300 mg BID PO Last administered on 05/25/16 08:38; Admin Dose 1,300 MG; Start 05/22/16 at 21:00 Ondansetron HCl (Zofran Inj) 4 mg Q4H PRN IV NAUSEA AND/OR VOMITING Last administered on 05/24/16 06:16; Admin Dose 4 MG; Start 05/22/16 at 20:30 Morphine Sulfate (morphine) 4 mg Q4H PRN IV PAIN Last administered on 22:24; Admin Dose 4 MG; Start 05/22/16 at 20:30 Acetaminophen (Tylenol Tab) 650 mg Q4H PRN PO PAIN AND OR ELEVATED TEMP; Start 05/22/16 at 20:30 Labetalol HCl (Normodyne) 200 mg Q8 PO Last administered on 05/25/16 06:21; Admin Dose 200 MG; Start 05/22/16 at 22:00 Hydralazine HCl (Apresoline) 10 mg Q6H PRN IV sbp>170; Start 05/22/16 at 21:00 Clonidine (Catapres) 0.1 mg Q4H PRN PO systolic BP >170; Start 05/22/16 at 21: 30 Azithromycin (Zithromax) 250 mg DAILY PO Last administered on 05/25/16 08:38; Admin Dose 250 MG; Start 05/24/16 at 09:00; Stop 05/26/16 at 08:59 Epoetin [place] (Epogen (Esrd)) 10,000 units MoWeFr@17 SC Last administered on 17:21; Admin Dose 10,000 UNITS; Start 05/24/16 at 17:00 Insulin Glargine (Lantus) 25 unit DAILY SC Last administered on 05/25/16 08:31 ; Admin Dose 25 UNIT; Start 05/24/16 at 09:00 Sildenafil Citrate (Revatio) 20 mg BID PO Last administered on 05/25/16 08:54 ; Admin Dose 20 MG; Start 05/24/16 at 15:00 Pneumococcal Polyvalent Vaccine (Pneumovax-23) 0.5 ml ONCE ONCE IM* ; Start at 15:00; Stop 05/24/16 at 15:01; Status UNV Miscellaneous Information (*Order Clarification Bulletin) MEDICATION REQUIRES CLARIFICATI... Q24H XX ; Start 05/25/16 at 09:00 Methylprednisolone Sodium Succinate (Solu-Medrol) 20 mg Q12 IV Last administered on 05/25/16 08:36; Admin Dose 20 MG; Start 05/24/16 at 20:00 Insulin Glargine (Lantus) 15 unit QHS SC Last administered on 05/24/16 22:18; Admin Dose 15 UNIT; Start 05/24/16 at 22:30 SPRING CHAVEZ MD May 25, 2016 09:52
[2016-05-25] MEDS: CEFTRIAXONE 1 GM/50 ML (PMX) 50 ML IVPB SCH (12:22)
--- NOTE | 2016-05-25 14:48 | CONS ---
Date/Time of Note Date/Time of Note DATE: 05/25/16 TIME: 14:46 Assessment/Plan Assessment/Plan Additional Assessment/Plan Dyspnea Acute decompensated systolic and diastolic congestive heart failure Aortic stenosis Tricuspid valve regurgitation Pulmonary hypertension Severe anemia status post blood transfusion Hypertension Peripheral arterial disease Chronic kidney disease with history of renal transplant Moderate carotid artery stenosis -Blood pressure trend remained stable, shortness of breath has improved. Diuretics as per our nephrology colleagues. I did discuss the cardiac findings with her patient and recommend outpatient follow-up. DC planning Consultation Date/Type/Reason Admit Date/Time May 22, 2016 at 08:44 Type of Consultation: cv 24 HR Interval Summary Free Text/Dictation Patient with continual improvement in shortness of breath, still with mild cough but better. Denies chest pain Exam/Review of Systems Vital Signs Vitals Vital Signs Date Time Temp Pulse Resp B/P Pulse Ox O2 Delivery O2 Flow Rate FiO2 05/25/16 13:38 80 20 98 21 05/25/16 12:00 98.3 118/73 Room Air 05/22/16 05:33 10 Intake and Output 05/24/16 05/24/16 05/25/16 15:00 23:00 07:00 Intake Total 750 ml 400 ml Output Total 700 ml 550 ml Balance 50 ml -150 ml Exam Constitutional: alert, oriented Head: normocephalic Neck: supple Respiratory: other (course breath sounds bilaterally, no wheezing) Cardiovascular: other (S1-S2 heard), regular rate and rhythm, systolic murmur Gastrointestinal: bowel sounds, non-tender, soft Extremities: edema (trace) Results Result Diagram: 05/25/16 0620 05/25/16 0600 Results 24 hrs Laboratory Tests Test 05/24/16 16:47 05/24/16 20:14 05/25/16 01:50 05/25/16 06:00 Bedside Glucose 291 H 337 H 237 H Alanine Aminotransferase (ALT/SGPT) 41 Albumin 3.7 Albumin/Globulin Ratio 1.08 Alkaline Phosphatase 155 H Anion Gap 21 H Aspartate Amino Transf (AST/SGOT) 48 H Blood Urea Nitrogen 78 H Calcium Level 7.9 L Carbon Dioxide Level 18 L Chloride Level 102 Creatinine 3.15 H Direct Bilirubin 0.00 Globulin 3.40 H Glucose Level 186 # Indirect Bilirubin 0.0 Potassium Level 4.9 Sodium Level 136 Total Bilirubin 0.0 L Total Protein 7.1 Test 05/25/16 06:20 05/25/16 07:31 05/25/16 11:38 Basophils # 0.0 Basophils % 0.0 Blood Morphology Comment Eosinophils # 0.3 Eosinophils % 5.4 Hematocrit 25.4 L Hemoglobin 8.4 L Lymphocytes # 0.8 Lymphocytes % 16.3 Mean Corpuscular Hemoglobin 30.4 Mean Corpuscular Hemoglobin Concent 33.0 Mean Corpuscular Volume 92.2 Mean Platelet Volume 10.8 H Monocytes # 0.0 L Monocytes % 0.4 Neutrophils # 3.7 Neutrophils % 77.9 H Nucleated Red Blood Cells # 0.0 Nucleated Red Blood Cells % 0.0 Platelet Count 44 L Red Blood Count 2.76 L Red Cell Distribution Width 16.9 H White Blood Count 4.7 L Bedside Glucose 222 H 206 Medications Medications Current Medications Ceftriaxone Sodium (Rocephin) 50 ml @ 100 mls/hr Q24H IVPB Last administered on 05/25/16 12:22; Admin Dose 100 MLS/HR; Start 05/22/16 at 12:30 Multivit/Ca Carb/ B Cmplx/FA/Prenat (Delmy-Mario) 1 tab DAILY PO Last administered on 05/25/16 08:37; Admin Dose 1 TAB; Start 05/23/16 at 09:00 Mycophenolate Mofetil (Cellcept) 500 mg BID PO Last administered on 05/25/16 08:37; Admin Dose 500 MG; Start 05/22/16 at 21:00 Tamsulosin HCl (Flomax) 0.4 mg HS PO Last administered on 05/24/16 22:02; Admin Dose 0.4 MG; Start 05/22/16 at 21:00 Zolpidem Tartrate (Ambien) 5 mg QHS PRN PO INSOMNIA Last administered on 00:48; Admin Dose 5 MG; Start 05/22/16 at 12:30 Miscellaneous Information 1 ea NOTE XX ; Start 05/22/16 at 13:00 Glucose (Glutose) 15 gm Q15M PRN PO DECREASED GLUCOSE; Start 05/22/16 at 13:00 Glucose (Glutose) 22.5 gm Q15M PRN PO DECREASED GLUCOSE; Start 05/22/16 at 13: 00 Dextrose (D50w Syringe) 25 ml Q15M PRN IV DECREASED GLUCOSE; Start 05/22/16 at 13:00 Dextrose (D50w Syringe) 50 ml Q15M PRN IV DECREASED GLUCOSE; Start 05/22/16 at 13:00 Glucagon (Glucagen) 1 mg Q15M PRN IM DECREASED GLUCOSE; Start 05/22/16 at 13:00 Glucose (Glutose) 15 gm Q15M PRN BUCCAL DECREASED GLUCOSE; Start 05/22/16 at 13 :00 Pantoprazole (Protonix Tab) 40 mg DAILY@06 PO Last administered on 05/25/16 06 :22; Admin Dose 40 MG; Start 05/23/16 at 06:00 Folic Acid (Folic Acid) 1 mg BID PO Last administered on 05/25/16 08:37; Admin Dose 1 MG; Start 05/22/16 at 21:00 Diagnostic Test (Pha) (Accucheck) 1 ea 02 XX Last administered on 05/25/16 01: 55; Admin Dose 1 EA; Start 05/23/16 at 02:00 Sodium Bicarbonate (Sodium Bicarbonate Tab) 1,300 mg BID PO Last administered on 05/25/16 08:38; Admin Dose 1,300 MG; Start 05/22/16 at 21:00 Ondansetron HCl (Zofran Inj) 4 mg Q4H PRN IV NAUSEA AND/OR VOMITING Last administered on 05/24/16 06:16; Admin Dose 4 MG; Start 05/22/16 at 20:30 Morphine Sulfate (morphine) 4 mg Q4H PRN IV PAIN Last administered on 22:24; Admin Dose 4 MG; Start 05/22/16 at 20:30 Acetaminophen (Tylenol Tab) 650 mg Q4H PRN PO PAIN AND OR ELEVATED TEMP; Start 05/22/16 at 20:30 Labetalol HCl (Normodyne) 200 mg Q8 PO Last administered on 05/25/16 06:21; Admin Dose 200 MG; Start 05/22/16 at 22:00 Hydralazine HCl (Apresoline) 10 mg Q6H PRN IV sbp>170; Start 05/22/16 at 21:00 Clonidine (Catapres) 0.1 mg Q4H PRN PO systolic BP >170; Start 05/22/16 at 21: 30 Azithromycin (Zithromax) 250 mg DAILY PO Last administered on 05/25/16 08:38; Admin Dose 250 MG; Start 05/24/16 at 09:00; Stop 05/26/16 at 08:59 Epoetin Cayden (Epogen (Esrd)) 10,000 units MoWeFr@17 SC Last administered on 17:21; Admin Dose 10,000 UNITS; Start 05/24/16 at 17:00 Insulin Glargine (Lantus) 25 unit DAILY SC Last administered on 05/25/16 08:31 ; Admin Dose 25 UNIT; Start 05/24/16 at 09:00 Sildenafil Citrate (Revatio) 20 mg BID PO Last administered on 05/25/16 08:54 ; Admin Dose 20 MG; Start 05/24/16 at 15:00 Pneumococcal Polyvalent Vaccine (Pneumovax-23) 0.5 ml ONCE ONCE IM* ; Start at 15:00; Stop 05/24/16 at 15:01; Status UNV Miscellaneous Information (*Order Clarification Bulletin) MEDICATION REQUIRES CLARIFICATI... Q24H XX ; Start 05/25/16 at 09:00 Methylprednisolone Sodium Succinate (Solu-Medrol) 20 mg Q12 IV Last administered on 05/25/16 08:36; Admin Dose 20 MG; Start 05/24/16 at 20:00 Insulin Glargine (Lantus) 15 unit QHS SC Last administered on 05/24/16 22:18; Admin Dose 15 UNIT; Start 05/24/16 at 22:30 Rebel Montes DO May 25, 2016 14:48
--- NOTE | 2016-05-25 16:04 | PN ---
Date/Time of Note Date/Time of Note DATE: 05/25/16 TIME: 15:59 Assessment/Plan VTE Prophylaxis VTE Prophylaxis Intervention: SCD's Lines/Catheters IV [facility]from [facility] Urinary Cath still in place: No Assessment/Plan Assessment/Plan 1. Congestive heart failure exacerbation. Unable to tolerate Lasix due to worsening of renal function. - per Dr. Montes is following in cardiology consultation. 2. Possible community-acquired pneumonia vs acute bronchitis. - continue Rocephin, Zithromax. 3. Kidney failure, status post transplant, chronic rejection. - per Dr. Bonilla is following in nephrology consultation. Continue patient on prednisone and Prograf. 4. Anemia, s/p 1 unit of packed red blood cells transfusion. - Monitor hemoglobin and hematocrit 5. Diabetes mellitus type 2. Continue NovoLog and Lantus, monitor blood sugar. 6. Hypertension. Continue to monitor blood pressure. Continue Toprol-XL. 7. Aortic valve stenosis. 8. Pulmonary hypertension, started on sildenafil. 9. Hyperkalemia- resolved 10. Visual Hallucinations stated per - CT scan Brain without contrast - fu - fall precautions Continue Protonix for peptic ulcer disease prophylaxis. Sequential compression devices for deep venous thrombosis prophylaxis. Further recommendations based on clinical course. Plan of care discussed with Dr. Farley who is currently covering for Dr. Maloney. Subjective 24 Hr Interval Summary Eyes: no complaints ENT: no complaints Gastrointestinal: no complaints Psychological: confusion, other (visual hallucinations per ) Exam/Review of Systems Vital Signs Vitals Vital Signs Date Time Temp Pulse Resp B/P Pulse Ox O2 Delivery O2 Flow Rate FiO2 05/25/16 13:38 80 20 98 21 05/25/16 12:00 98.3 118/73 Room Air 05/22/16 05:33 10 Intake and Output 05/24/16 05/24/16 05/25/16 15:00 23:00 07:00 Intake Total 750 ml 400 ml Output Total 700 ml 550 ml Balance 50 ml -150 ml Exam Constitutional: alert, well developed Psych: nl mood/affect Eyes: nl sclera ENMT: nl external ears & nose Neck: non-tender Respiratory: clear to auscultation Cardiovascular: nl pulses Gastrointestinal: non-tender, soft Musculoskeletal: nl extremities to inspection Extremities: normal pulses Skin: other Results Result Diagram: 05/25/16 0620 05/25/16 0600 Results 24 hrs Laboratory Tests Test 05/24/16 16:47 05/24/16 20:14 05/25/16 01:50 05/25/16 06:00 Bedside Glucose 291 H 337 H 237 H Alanine Aminotransferase (ALT/SGPT) 41 Albumin 3.7 Albumin/Globulin Ratio 1.08 Alkaline Phosphatase 155 H Anion Gap 21 H Aspartate Amino Transf (AST/SGOT) 48 H Blood Urea Nitrogen 78 H Calcium Level 7.9 L Carbon Dioxide Level 18 L Chloride Level 102 Creatinine 3.15 H Direct Bilirubin 0.00 Globulin 3.40 H Glucose Level 186 # Indirect Bilirubin 0.0 Potassium Level 4.9 Sodium Level 136 Total Bilirubin 0.0 L Total Protein 7.1 Test 05/25/16 06:20 05/25/16 07:31 05/25/16 11:38 Basophils # 0.0 Basophils % 0.0 Blood Morphology Comment Eosinophils # 0.3 Eosinophils % 5.4 Hematocrit 25.4 L Hemoglobin 8.4 L Lymphocytes # 0.8 Lymphocytes % 16.3 Mean Corpuscular Hemoglobin 30.4 Mean Corpuscular Hemoglobin Concent 33.0 Mean Corpuscular Volume 92.2 Mean Platelet Volume 10.8 H Monocytes # 0.0 L Monocytes % 0.4 Neutrophils # 3.7 Neutrophils % 77.9 H Nucleated Red Blood Cells # 0.0 Nucleated Red Blood Cells % 0.0 Platelet Count 44 L Red Blood Count 2.76 L Red Cell Distribution Width 16.9 H White Blood Count 4.7 L Bedside Glucose 222 H 206 Medications Medications Current Medications Ceftriaxone Sodium (Rocephin) 50 ml @ 100 mls/hr Q24H IVPB Last administered on 05/25/16 12:22; Admin Dose 100 MLS/HR; Start 05/22/16 at 12:30 Multivit/Ca Carb/ B Cmplx/FA/Prenat (Delmy-Mario) 1 tab DAILY PO Last administered on 05/25/16 08:37; Admin Dose 1 TAB; Start 05/23/16 at 09:00 Mycophenolate Mofetil (Cellcept) 500 mg BID PO Last administered on 05/25/16 08:37; Admin Dose 500 MG; Start 05/22/16 at 21:00 Tamsulosin HCl (Flomax) 0.4 mg HS PO Last administered on 05/24/16 22:02; Admin Dose 0.4 MG; Start 05/22/16 at 21:00 Zolpidem Tartrate (Ambien) 5 mg QHS PRN PO INSOMNIA Last administered on 00:48; Admin Dose 5 MG; Start 05/22/16 at 12:30 Miscellaneous Information 1 ea NOTE XX ; Start 05/22/16 at 13:00 Glucose (Glutose) 15 gm Q15M PRN PO DECREASED GLUCOSE; Start 05/22/16 at 13:00 Glucose (Glutose) 22.5 gm Q15M PRN PO DECREASED GLUCOSE; Start 05/22/16 at 13: 00 Dextrose (D50w Syringe) 25 ml Q15M PRN IV DECREASED GLUCOSE; Start 05/22/16 at 13:00 Dextrose (D50w Syringe) 50 ml Q15M PRN IV DECREASED GLUCOSE; Start 05/22/16 at 13:00 Glucagon (Glucagen) 1 mg Q15M PRN IM DECREASED GLUCOSE; Start 05/22/16 at 13:00 Glucose (Glutose) 15 gm Q15M PRN BUCCAL DECREASED GLUCOSE; Start 05/22/16 at 13 :00 Pantoprazole (Protonix Tab) 40 mg DAILY@06 PO Last administered on 05/25/16 06 :22; Admin Dose 40 MG; Start 05/23/16 at 06:00 Folic Acid (Folic Acid) 1 mg BID PO Last administered on 05/25/16 08:37; Admin Dose 1 MG; Start 05/22/16 at 21:00 Diagnostic Test (Pha) (Accucheck) 1 ea 02 XX Last administered on 05/25/16 01: 55; Admin Dose 1 EA; Start 05/23/16 at 02:00 Sodium Bicarbonate (Sodium Bicarbonate Tab) 1,300 mg BID PO Last administered on 05/25/16 08:38; Admin Dose 1,300 MG; Start 05/22/16 at 21:00 Ondansetron HCl (Zofran Inj) 4 mg Q4H PRN IV NAUSEA AND/OR VOMITING Last administered on 05/24/16 06:16; Admin Dose 4 MG; Start 05/22/16 at 20:30 Morphine Sulfate (morphine) 4 mg Q4H PRN IV PAIN Last administered on 22:24; Admin Dose 4 MG; Start 05/22/16 at 20:30 Acetaminophen (Tylenol Tab) 650 mg Q4H PRN PO PAIN AND OR ELEVATED TEMP; Start 05/22/16 at 20:30 Labetalol HCl (Normodyne) 200 mg Q8 PO Last administered on 05/25/16 06:21; Admin Dose 200 MG; Start 05/22/16 at 22:00 Hydralazine HCl (Apresoline) 10 mg Q6H PRN IV sbp>170; Start 05/22/16 at 21:00 Clonidine (Catapres) 0.1 mg Q4H PRN PO systolic BP >170; Start 05/22/16 at 21: 30 Azithromycin (Zithromax) 250 mg DAILY PO Last administered on 05/25/16 08:38; Admin Dose 250 MG; Start 05/24/16 at 09:00; Stop 05/26/16 at 08:59 Epoetin Cayden (Epogen (Esrd)) 10,000 units MoWeFr@17 SC Last administered on 17:21; Admin Dose 10,000 UNITS; Start 05/24/16 at 17:00 Insulin Glargine (Lantus) 25 unit DAILY SC Last administered on 05/25/16 08:31 ; Admin Dose 25 UNIT; Start 05/24/16 at 09:00 Sildenafil Citrate (Revatio) 20 mg BID PO Last administered on 05/25/16 08:54 ; Admin Dose 20 MG; Start 05/24/16 at 15:00 Pneumococcal Polyvalent Vaccine (Pneumovax-23) 0.5 ml ONCE ONCE IM* ; Start at 15:00; Stop 05/24/16 at 15:01; Status UNV Miscellaneous Information (*Order Clarification Bulletin) MEDICATION REQUIRES CLARIFICATI... Q24H XX ; Start 05/25/16 at 09:00 Methylprednisolone Sodium Succinate (Solu-Medrol) 20 mg Q12 IV Last administered on 05/25/16 08:36; Admin Dose 20 MG; Start 05/24/16 at 20:00 Insulin Glargine (Lantus) 15 unit QHS SC Last administered on 05/24/16 22:18; Admin Dose 15 UNIT; Start 05/24/16 at 22:30 JEFF MELGAR May 25, 2016 16:04
--- NOTE | 2016-05-25 17:06 | RADRPT ---
PROCEDURE: CT brain without contrast CLINICAL INDICATION: Altered mental status TECHNIQUE: CT of the brain without contrast performed on a multidetector CT scanner, with multiplan ar reformats. One or more of the following dose reduction techniques were used: Automated exposure control, adjustment in mA and / or kV according to patient size, use of iterative reconstructive ana hnique. CTDIvol = 44 mGy; DLP = 720 mGy-cm. COMPARISON: None available FINDINGS: A small chronic lacunar infarct is identified in the left putamen. No acute intracranial hemorrhage is identified. No extra-axial fluid collection is seen. There is no mass effect. No midline shift is identified. Ventricles and sulci are mildly enlarged compatible with generalized volume loss. There are mild areas of hypodensity in the periventricular - deep white matter which are nonspecific but suggestive of chronic small vessel ischemic changes. Nickerson-white differentiation is preserved. Atherosclerotic calcifications of the proximal intracranial arteries, as well as the extracranial ar teries are noted. Osseous structures are unremarkable. There is mild to moderate paranasal sinus mucosal thickening. Hyperdensity in the right globe probably reflects silicone injection. There is intermediate densit y in the posterior chamber of the left globe, suggestive of retinal detachment/hemorrhage. IMPRESSION: 1. No evidence of acute intracranial pathology. 2. Chronic left basal ganglia lacunar infarct. 3. Mild generalized volume loss, with mild chronic small vessel ischemic changes. 4. Findings suggesting left retinal detachment/hemorrhage with postoperative changes of the right g lobe noted. RPTAT: VV .Rayo Li MD, Date Time Electronically viewed and signed by .Rayo Li MD, on 05/25/2016 17:06 .O/
[2016-05-25] MEDS: TAMSULOSIN (SR) 0.4 MG CAP PO SCH (20:24)
[2016-05-25] MEDS ORDERED: INSULIN GLARGINE [LANtus] 3 ML PEN SC SCH (21:00)
[2016-05-26] VITALS (9 sets, daily range): BP systolic 128–146; BP diastolic 67–80; PULSE 78–82; RESP 14–74
[2016-05-26] MEDS: ALBUTEROL/IPRATROPIUM (NEB) 3 ML AMP HHN PRN (01:07)
[2016-05-26] MEDS: ACCUCHECK XX SCH (02:28)
[2016-05-26] MEDS: LABETALOL 200 MG TAB PO SCH ×2 (06:07→14:33)
[2016-05-26] MEDS: PANTOPRAZOLE (EC) 40 MG TAB PO SCH (06:07)
[2016-05-26 06:26] LABS: ALBUMIN 3.7 g/dl (3.3-4.9); POTASSIUM 4.7 mmol/L (3.5-5.1)
[2016-05-26 06:28] LABS: CREATININE 3.11 mg/dl (0.61-1.24)
[2016-05-26 06:29] LABS: ALBUMIN/GLOBULIN RATIO 1.32; TOTAL PROTEIN 6.5 g/dl (6.1-8.1)
[2016-05-26 06:30] LABS: CALCIUM 7.9 mg/dl (8.4-10.2)
[2016-05-26 06:31] LABS: HEMATOCRIT 25.1 % (42.0-52.0); HEMOGLOBIN 8.3 g/dl (14.0-18.0); MEAN CORPUSCULAR HEMOGLOBIN 30.4 pg (29.0-33.0); MEAN CORPUSCULAR HGB CONC 33.1 g/dl (32.0-37.0); MEAN CORPUSCULAR VOLUME 91.8 fl (82.0-101.0); MEAN PLATELET VOLUME 13.5 fl (7.4-10.4); PLATELET COUNT 55 10^3/UL (140-440); RED BLOOD COUNT 2.74 10^6/ul (4.70-6.10); UNCORRECTED WBC 4.5 10^3/ul (4.8-10.8); WHITE BLOOD COUNT 4.5 10^3/ul (4.8-10.8)
[2016-05-26 06:52] LABS: CONDITION 1; LH ANALYZER COMMENTS 1; SUSPECT 1
[2016-05-26] MEDS: ALBUTEROL/IPRATROPIUM (NEB) 3 ML AMP HHN SCH ×2 (08:53→14:22)
[2016-05-26] MEDS: SILDENAFIL 20 MG TAB PO SCH (09:00)
[2016-05-26] MEDS: MYCOPHENOLATE 250 MG CAP PO SCH (09:00)
[2016-05-26] MEDS: METHYLPREDNISOLONE 40 MG INJ IV SCH (09:40)
[2016-05-26] MEDS: NA BICARBONATE 650 MG TAB PO SCH (09:42)
[2016-05-26] MEDS: FOLIC ACID 1 MG TAB PO SCH (09:42)
[2016-05-26] MEDS: MULTIVIT/CA CARB/B CMPLX/FA TAB PO SCH (09:42)
[2016-05-26] MEDS: INSULIN GLARGINE [LANtus] 3 ML PEN SC SCH (09:44)
[2016-05-26] MEDS: INSULIN ASPART [NOVOLOG] 3 ML PEN SC SCH ×2 (09:44→12:23)
[2016-05-26 10:17] LABS: LYMPHOCYTES # 0.4 10^3/ul (0.8-2.9); MONOCYTE # 0.3 10^3/ul (0.3-0.9); NEUTROPHIL # 3.6 10^3/ul (1.6-7.5)
[2016-05-26 10:18] LABS: PLATELET ESTIMATE PLT APPEAR DECREASED
--- NOTE | 2016-05-26 11:40 | CONS ---
Date/Time of Note Date/Time of Note DATE: 05/26/16 TIME: 11:34 Assessment/Plan Assessment/Plan Chief Complaint/Hosp Course 1. CKD , renal function is is about the same as yesterday , slight decrease in serum creatinine . Possible acute tubular necrosis superimposed on CKD. 2. 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 hyperkalemia secondary to # 1 , treated with Kayexalate , K is now normal . 4 pancytopenia .due to bone marrow suppression , I will discontinue CellCept at this time. 5 .acute bronchitis , he still has some fine expiratory wheezes. He is still on Solu-Medrol. 6. Altered level of consciousness last night probably due to Solu-Medrol and being in hospital. Problems: Consultation Date/Type/Reason Admit Date/Time May 22, 2016 at 08:44 Type of Consultation: cv 24 HR Interval Summary Free Text/Dictation He says that he is feeling better today. He said that he became confused last night and had a CAT scan of his head done. There are no acute changes on the CAT scan. Constitutional: improved, no complaints Exam/Review of Systems Vital Signs Vitals Vital Signs Date Time Temp Pulse Resp B/P Pulse Ox O2 Delivery O2 Flow Rate FiO2 05/26/16 08:54 79 20 95 21 05/26/16 07:58 98.2 128/67 05/26/16 01:13 2.0 05/25/16 16:29 Room Air Intake and Output 05/25/16 05/25/16 05/26/16 15:00 23:00 07:00 Intake Total 100 ml 240 ml Output Total 900 ml Balance 100 ml -660 ml Exam L leg status post BKA , right leg trace edema Constitutional: alert, oriented, well developed Psych: nl mood/affect, no complaints Respiratory: wheezing Gastrointestinal: soft Results Result Diagram: 05/26/16 0535 05/26/16 0545 Results 24 hrs Laboratory Tests Test 05/25/16 11:38 05/25/16 17:39 05/25/16 20:21 05/26/16 02:18 Bedside Glucose 206 235 H 263 H 190 Test 05/26/16 05:35 05/26/16 05:45 05/26/16 08:22 05/26/16 11:22 Band Neutrophils % 5.0 Basophils # Basophils % Blood Morphology Comment Eosinophils # Eosinophils % Hematocrit 25.1 L Hemoglobin 8.3 L Lymphocytes # 0.4 L Lymphocytes % 8.0 L Mean Corpuscular Hemoglobin 30.4 Mean Corpuscular Hemoglobin Concent 33.1 Mean Corpuscular Volume 91.8 Mean Platelet Volume 13.5 #H Monocytes # 0.3 Monocytes % 6.0 Neutrophils # 3.6 Neutrophils % 81.0 H Nucleated Red Blood Cells # Nucleated Red Blood Cells % Platelet Count 55 #L Platelet Estimate PLT APPEAR DECREASED Red Blood Count 2.74 L Red Cell Distribution Width 17.0 H White Blood Count 4.5 L Alanine Aminotransferase (ALT/SGPT) 47 Albumin 3.7 Albumin/Globulin Ratio 1.32 Alkaline Phosphatase 145 H Anion Gap 21 H Aspartate Amino Transf (AST/SGOT) 45 Blood Urea Nitrogen 80 H Calcium Level 7.9 L Carbon Dioxide Level 21 Chloride Level 100 Creatinine 3.11 H Direct Bilirubin 0.00 Globulin 2.80 Glucose Level 150 Indirect Bilirubin 0.0 Potassium Level 4.7 Sodium Level 137 Total Bilirubin 0.0 L Total Protein 6.5 Bedside Glucose 185 Lab Scanned Report REFERENCE LAB Medications Medications Current Medications Ceftriaxone Sodium (Rocephin) 50 ml @ 100 mls/hr Q24H IVPB Last administered on 05/25/16 12:22; Admin Dose 100 MLS/HR; Start 05/22/16 at 12:30 Multivit/Ca Carb/ B Cmplx/FA/Prenat (Delmy-Mario) 1 tab DAILY PO Last administered on 05/26/16 09:42; Admin Dose 1 TAB; Start 05/23/16 at 09:00 Tamsulosin HCl (Flomax) 0.4 mg HS PO Last administered on 05/25/16 20:24; Admin Dose 0.4 MG; Start 05/22/16 at 21:00 Zolpidem Tartrate (Ambien) 5 mg QHS PRN PO INSOMNIA Last administered on 22:34; Admin Dose 5 MG; Start 05/22/16 at 12:30 Miscellaneous Information 1 ea NOTE XX ; Start 05/22/16 at 13:00 Glucose (Glutose) 15 gm Q15M PRN PO DECREASED GLUCOSE; Start 05/22/16 at 13:00 Glucose (Glutose) 22.5 gm Q15M PRN PO DECREASED GLUCOSE; Start 05/22/16 at 13: 00 Dextrose (D50w Syringe) 25 ml Q15M PRN IV DECREASED GLUCOSE; Start 05/22/16 at 13:00 Dextrose (D50w Syringe) 50 ml Q15M PRN IV DECREASED GLUCOSE; Start 05/22/16 at 13:00 Glucagon (Glucagen) 1 mg Q15M PRN IM DECREASED GLUCOSE; Start 05/22/16 at 13:00 Glucose (Glutose) 15 gm Q15M PRN BUCCAL DECREASED GLUCOSE; Start 05/22/16 at 13 :00 Pantoprazole (Protonix Tab) 40 mg DAILY@06 PO Last administered on 05/26/16 06 :07; Admin Dose 40 MG; Start 05/23/16 at 06:00 Folic Acid (Folic Acid) 1 mg BID PO Last administered on 05/26/16 09:42; Admin Dose 1 MG; Start 05/22/16 at 21:00 Diagnostic Test (Pha) (Accucheck) 1 ea 02 XX Last administered on 05/26/16 02: 28; Admin Dose 1 EA; Start 05/23/16 at 02:00 Sodium Bicarbonate (Sodium Bicarbonate Tab) 1,300 mg BID PO Last administered on 05/26/16 09:42; Admin Dose 1,300 MG; Start 05/22/16 at 21:00 Ondansetron HCl (Zofran Inj) 4 mg Q4H PRN IV NAUSEA AND/OR VOMITING Last administered on 05/24/16 06:16; Admin Dose 4 MG; Start 05/22/16 at 20:30 Morphine Sulfate (morphine) 4 mg Q4H PRN IV PAIN Last administered on 22:24; Admin Dose 4 MG; Start 05/22/16 at 20:30 Acetaminophen (Tylenol Tab) 650 mg Q4H PRN PO PAIN AND OR ELEVATED TEMP; Start 05/22/16 at 20:30 Labetalol HCl (Normodyne) 200 mg Q8 PO Last administered on 05/26/16 06:07; Admin Dose 200 MG; Start 05/22/16 at 22:00 Hydralazine HCl (Apresoline) 10 mg Q6H PRN IV sbp>170; Start 05/22/16 at 21:00 Clonidine (Catapres) 0.1 mg Q4H PRN PO systolic BP >170; Start 05/22/16 at 21: 30 Epoetin Cayden (Epogen (Esrd)) 10,000 units MoWeFr@17 SC Last administered on 17:21; Admin Dose 10,000 UNITS; Start 05/24/16 at 17:00 Insulin Glargine (Lantus) 25 unit DAILY SC Last administered on 05/26/16 09:44 ; Admin Dose 25 UNIT; Start 05/24/16 at 09:00 Sildenafil Citrate (Revatio) 20 mg BID PO Last administered on 05/25/16 20:24 ; Admin Dose 20 MG; Start 05/24/16 at 15:00 Pneumococcal Polyvalent Vaccine (Pneumovax-23) 0.5 ml ONCE ONCE IM* ; Start at 15:00; Stop 05/24/16 at 15:01; Status UNV Miscellaneous Information (*Order Clarification Bulletin) MEDICATION REQUIRES CLARIFICATI... Q24H XX ; Start 05/25/16 at 09:00 Methylprednisolone Sodium Succinate (Solu-Medrol) 20 mg Q12 IV Last administered on 05/26/16 09:40; Admin Dose 20 MG; Start 05/24/16 at 20:00 Insulin Glargine (Lantus) 15 unit QHS SC Last administered on 05/25/16 20:26; Admin Dose 15 UNIT; Start 05/24/16 at 22:30 SPRING CHAVEZ MD May 26, 2016 11:39
[2016-05-26] MEDS: CEFTRIAXONE 1 GM/50 ML (PMX) 50 ML IVPB SCH (12:24)
--- NOTE | 2016-05-26 13:43 | CONS ---
Date/Time of Note Date/Time of Note DATE: 05/26/16 TIME: 13:39 Assessment/Plan Assessment/Plan Additional Assessment/Plan Dyspnea Acute decompensated systolic and diastolic congestive heart failure Aortic stenosis Tricuspid valve regurgitation Pulmonary hypertension Severe anemia status post blood transfusion Hypertension Peripheral arterial disease Chronic kidney disease with history of renal transplant Moderate carotid artery stenosis -Patient with increased congestion on lung examination today, we'll order chest x-ray, diuretics have been on hold, might need to restart if okay by our nephrology colleagues. Consultation Date/Type/Reason Admit Date/Time May 22, 2016 at 08:44 Type of Consultation: cv 24 HR Interval Summary Free Text/Dictation Patient complains of intermittent shortness of breath and phlegm production, denies fevers or chills or chest pain Exam/Review of Systems Vital Signs Vitals Vital Signs Date Time Temp Pulse Resp B/P Pulse Ox O2 Delivery O2 Flow Rate FiO2 05/26/16 13:23 78 05/26/16 11:54 97.9 74 140/71 93 05/26/16 08:54 21 05/26/16 01:13 2.0 05/25/16 16:29 Room Air Intake and Output 05/25/16 05/25/16 05/26/16 15:00 23:00 07:00 Intake Total 100 ml 240 ml Output Total 900 ml Balance 100 ml -660 ml Exam nad Constitutional: alert, oriented Head: normocephalic Neck: supple Respiratory: other (course breath sounds bilaterally with minimal scattered crackles, mild and expiratory wheeze) Cardiovascular: other (S1 and S2 heard), regular rate and rhythm Gastrointestinal: bowel sounds, non-tender, soft Extremities: other (no edema) Results Result Diagram: 05/26/16 0535 05/26/16 0545 Results 24 hrs Laboratory Tests Test 05/25/16 17:39 05/25/16 20:21 05/26/16 02:18 05/26/16 05:35 Bedside Glucose 235 H 263 H 190 Band Neutrophils % 5.0 Basophils # Basophils % Blood Morphology Comment Eosinophils # Eosinophils % Hematocrit 25.1 L Hemoglobin 8.3 L Lymphocytes # 0.4 L Lymphocytes % 8.0 L Mean Corpuscular Hemoglobin 30.4 Mean Corpuscular Hemoglobin Concent 33.1 Mean Corpuscular Volume 91.8 Mean Platelet Volume 13.5 #H Monocytes # 0.3 Monocytes % 6.0 Neutrophils # 3.6 Neutrophils % 81.0 H Nucleated Red Blood Cells # Nucleated Red Blood Cells % Platelet Count 55 #L Platelet Estimate PLT APPEAR DECREASED Red Blood Count 2.74 L Red Cell Distribution Width 17.0 H White Blood Count 4.5 L Test 05/26/16 05:45 05/26/16 08:22 05/26/16 11:22 05/26/16 11:48 Alanine Aminotransferase (ALT/SGPT) 47 Albumin 3.7 Albumin/Globulin Ratio 1.32 Alkaline Phosphatase 145 H Anion Gap 21 H Aspartate Amino Transf (AST/SGOT) 45 Blood Urea Nitrogen 80 H Calcium Level 7.9 L Carbon Dioxide Level 21 Chloride Level 100 Creatinine 3.11 H Direct Bilirubin 0.00 Globulin 2.80 Glucose Level 150 Indirect Bilirubin 0.0 Potassium Level 4.7 Sodium Level 137 Total Bilirubin 0.0 L Total Protein 6.5 Bedside Glucose 185 340 H Lab Scanned Report REFERENCE LAB Medications Medications Current Medications Ceftriaxone Sodium (Rocephin) 50 ml @ 100 mls/hr Q24H IVPB Last administered on 05/26/16 12:24; Admin Dose 100 MLS/HR; Start 05/22/16 at 12:30 Multivit/Ca Carb/ B Cmplx/FA/Prenat (Delmy-Mario) 1 tab DAILY PO Last administered on 05/26/16 09:42; Admin Dose 1 TAB; Start 05/23/16 at 09:00 Tamsulosin HCl (Flomax) 0.4 mg HS PO Last administered on 05/25/16 20:24; Admin Dose 0.4 MG; Start 05/22/16 at 21:00 Zolpidem Tartrate (Ambien) 5 mg QHS PRN PO INSOMNIA Last administered on 22:34; Admin Dose 5 MG; Start 05/22/16 at 12:30 Miscellaneous Information 1 ea NOTE XX ; Start 05/22/16 at 13:00 Glucose (Glutose) 15 gm Q15M PRN PO DECREASED GLUCOSE; Start 05/22/16 at 13:00 Glucose (Glutose) 22.5 gm Q15M PRN PO DECREASED GLUCOSE; Start 05/22/16 at 13: 00 Dextrose (D50w Syringe) 25 ml Q15M PRN IV DECREASED GLUCOSE; Start 05/22/16 at 13:00 Dextrose (D50w Syringe) 50 ml Q15M PRN IV DECREASED GLUCOSE; Start 05/22/16 at 13:00 Glucagon (Glucagen) 1 mg Q15M PRN IM DECREASED GLUCOSE; Start 05/22/16 at 13:00 Glucose (Glutose) 15 gm Q15M PRN BUCCAL DECREASED GLUCOSE; Start 05/22/16 at 13 :00 Pantoprazole (Protonix Tab) 40 mg DAILY@06 PO Last administered on 05/26/16 06 :07; Admin Dose 40 MG; Start 05/23/16 at 06:00 Folic Acid (Folic Acid) 1 mg BID PO Last administered on 05/26/16 09:42; Admin Dose 1 MG; Start 05/22/16 at 21:00 Diagnostic Test (Pha) (Accucheck) 1 ea 02 XX Last administered on 05/26/16 02: 28; Admin Dose 1 EA; Start 05/23/16 at 02:00 Sodium Bicarbonate (Sodium Bicarbonate Tab) 1,300 mg BID PO Last administered on 05/26/16 09:42; Admin Dose 1,300 MG; Start 05/22/16 at 21:00 Ondansetron HCl (Zofran Inj) 4 mg Q4H PRN IV NAUSEA AND/OR VOMITING Last administered on 05/24/16 06:16; Admin Dose 4 MG; Start 05/22/16 at 20:30 Morphine Sulfate (morphine) 4 mg Q4H PRN IV PAIN Last administered on 22:24; Admin Dose 4 MG; Start 05/22/16 at 20:30 Acetaminophen (Tylenol Tab) 650 mg Q4H PRN PO PAIN AND OR ELEVATED TEMP; Start 05/22/16 at 20:30 Labetalol HCl (Normodyne) 200 mg Q8 PO Last administered on 05/26/16 06:07; Admin Dose 200 MG; Start 05/22/16 at 22:00 Hydralazine HCl (Apresoline) 10 mg Q6H PRN IV sbp>170; Start 05/22/16 at 21:00 Clonidine (Catapres) 0.1 mg Q4H PRN PO systolic BP >170; Start 05/22/16 at 21: 30 Epoetin Cayden (Epogen (Esrd)) 10,000 units MoWeFr@17 SC Last administered on 17:21; Admin Dose 10,000 UNITS; Start 05/24/16 at 17:00 Insulin Glargine (Lantus) 25 unit DAILY SC Last administered on 05/26/16 09:44 ; Admin Dose 25 UNIT; Start 05/24/16 at 09:00 Sildenafil Citrate (Revatio) 20 mg BID PO Last administered on 05/25/16 20:24 ; Admin Dose 20 MG; Start 05/24/16 at 15:00 Pneumococcal Polyvalent Vaccine (Pneumovax-23) 0.5 ml ONCE ONCE IM* ; Start at 15:00; Stop 05/24/16 at 15:01; Status UNV Miscellaneous Information (*Order Clarification Bulletin) MEDICATION REQUIRES CLARIFICATI... Q24H XX ; Start 05/25/16 at 09:00 Methylprednisolone Sodium Succinate (Solu-Medrol) 20 mg Q12 IV Last administered on 05/26/16 09:40; Admin Dose 20 MG; Start 05/24/16 at 20:00 Insulin Glargine (Lantus) 15 unit QHS SC Last administered on 05/25/16 20:26; Admin Dose 15 UNIT; Start 05/24/16 at 22:30 Rebel Montes DO May 26, 2016 13:43
--- NOTE | 2016-05-26 14:36 | PN ---
Date/Time of Note Date/Time of Note DATE: 05/26/16 TIME: 14:35 Assessment/Plan VTE Prophylaxis VTE Prophylaxis Intervention: other Lines/Catheters IV [facility]from [facility] Urinary Cath still in place: No Assessment/Plan Chief Complaint/Hosp Course 1. Congestive heart failure exacerbation. Unable to tolerate Lasix due to worsening of renal function. - per Dr. Montes is following in cardiology consultation. 2. Possible community-acquired pneumonia vs acute bronchitis. - continue Rocephin, Zithromax. 3. Kidney failure, status post transplant, chronic rejection. - per Dr. Bonilla is following in nephrology consultation. Continue patient on prednisone and Prograf. 4. Anemia, s/p 1 unit of packed red blood cells transfusion. - Monitor hemoglobin and hematocrit 5. Diabetes mellitus type 2. Continue NovoLog and Lantus, monitor blood sugar. 6. Hypertension. Continue to monitor blood pressure. Continue Toprol-XL. 7. Aortic valve stenosis. 8. Pulmonary hypertension, started on sildenafil. 9. Hyperkalemia- resolved 10. Visual Hallucinations stated per - CT scan Brain without contrast - fu - fall precautions Problems: Subjective 24 Hr Interval Summary Free Text/Dictation Patient has no complaints but is still short of breath Exam/Review of Systems Vital Signs Vitals Vital Signs Date Time Temp Pulse Resp B/P Pulse Ox O2 Delivery O2 Flow Rate FiO2 05/26/16 14:22 80 26 80 21 05/26/16 11:54 97.9 140/71 05/26/16 01:13 2.0 05/25/16 16:29 Room Air Intake and Output 05/25/16 05/25/16 05/26/16 15:00 23:00 07:00 Intake Total 100 ml 240 ml Output Total 900 ml Balance 100 ml -660 ml Exam Head: atraumatic, normocephalic Neck: supple Respiratory: diminished breath sounds Cardiovascular: regular rate and rhythm Gastrointestinal: non-tender, soft Extremities: edema Results Result Diagram: 05/26/16 0535 05/26/16 0545 Results 24 hrs Laboratory Tests Test 05/25/16 17:39 05/25/16 20:21 05/26/16 02:18 05/26/16 05:35 Bedside Glucose 235 H 263 H 190 Band Neutrophils % 5.0 Basophils # Basophils % Blood Morphology Comment Eosinophils # Eosinophils % Hematocrit 25.1 L Hemoglobin 8.3 L Lymphocytes # 0.4 L Lymphocytes % 8.0 L Mean Corpuscular Hemoglobin 30.4 Mean Corpuscular Hemoglobin Concent 33.1 Mean Corpuscular Volume 91.8 Mean Platelet Volume 13.5 #H Monocytes # 0.3 Monocytes % 6.0 Neutrophils # 3.6 Neutrophils % 81.0 H Nucleated Red Blood Cells # Nucleated Red Blood Cells % Platelet Count 55 #L Platelet Estimate PLT APPEAR DECREASED Red Blood Count 2.74 L Red Cell Distribution Width 17.0 H White Blood Count 4.5 L Test 05/26/16 05:45 05/26/16 08:22 05/26/16 11:22 05/26/16 11:48 Alanine Aminotransferase (ALT/SGPT) 47 Albumin 3.7 Albumin/Globulin Ratio 1.32 Alkaline Phosphatase 145 H Anion Gap 21 H Aspartate Amino Transf (AST/SGOT) 45 Blood Urea Nitrogen 80 H Calcium Level 7.9 L Carbon Dioxide Level 21 Chloride Level 100 Creatinine 3.11 H Direct Bilirubin 0.00 Globulin 2.80 Glucose Level 150 Indirect Bilirubin 0.0 Potassium Level 4.7 Sodium Level 137 Total Bilirubin 0.0 L Total Protein 6.5 Bedside Glucose 185 340 H Lab Scanned Report REFERENCE LAB Medications Medications Current Medications Ceftriaxone Sodium (Rocephin) 50 ml @ 100 mls/hr Q24H IVPB Last administered on 05/26/16 12:24; Admin Dose 100 MLS/HR; Start 05/22/16 at 12:30 Multivit/Ca Carb/ B Cmplx/FA/Prenat (Delmy-Mario) 1 tab DAILY PO Last administered on 05/26/16 09:42; Admin Dose 1 TAB; Start 05/23/16 at 09:00 Tamsulosin HCl (Flomax) 0.4 mg HS PO Last administered on 05/25/16 20:24; Admin Dose 0.4 MG; Start 05/22/16 at 21:00 Zolpidem Tartrate (Ambien) 5 mg QHS PRN PO INSOMNIA Last administered on 22:34; Admin Dose 5 MG; Start 05/22/16 at 12:30 Miscellaneous Information 1 ea NOTE XX ; Start 05/22/16 at 13:00 Glucose (Glutose) 15 gm Q15M PRN PO DECREASED GLUCOSE; Start 05/22/16 at 13:00 Glucose (Glutose) 22.5 gm Q15M PRN PO DECREASED GLUCOSE; Start 05/22/16 at 13: 00 Dextrose (D50w Syringe) 25 ml Q15M PRN IV DECREASED GLUCOSE; Start 05/22/16 at 13:00 Dextrose (D50w Syringe) 50 ml Q15M PRN IV DECREASED GLUCOSE; Start 05/22/16 at 13:00 Glucagon (Glucagen) 1 mg Q15M PRN IM DECREASED GLUCOSE; Start 05/22/16 at 13:00 Glucose (Glutose) 15 gm Q15M PRN BUCCAL DECREASED GLUCOSE; Start 05/22/16 at 13 :00 Pantoprazole (Protonix Tab) 40 mg DAILY@06 PO Last administered on 05/26/16 06 :07; Admin Dose 40 MG; Start 05/23/16 at 06:00 Folic Acid (Folic Acid) 1 mg BID PO Last administered on 05/26/16 09:42; Admin Dose 1 MG; Start 05/22/16 at 21:00 Diagnostic Test (Pha) (Accucheck) 1 ea 02 XX Last administered on 05/26/16 02: 28; Admin Dose 1 EA; Start 05/23/16 at 02:00 Sodium Bicarbonate (Sodium Bicarbonate Tab) 1,300 mg BID PO Last administered on 05/26/16 09:42; Admin Dose 1,300 MG; Start 05/22/16 at 21:00 Ondansetron HCl (Zofran Inj) 4 mg Q4H PRN IV NAUSEA AND/OR VOMITING Last administered on 05/24/16 06:16; Admin Dose 4 MG; Start 05/22/16 at 20:30 Morphine Sulfate (morphine) 4 mg Q4H PRN IV PAIN Last administered on 22:24; Admin Dose 4 MG; Start 05/22/16 at 20:30 Acetaminophen (Tylenol Tab) 650 mg Q4H PRN PO PAIN AND OR ELEVATED TEMP; Start 05/22/16 at 20:30 Labetalol HCl (Normodyne) 200 mg Q8 PO Last administered on 05/26/16 14:33; Admin Dose 200 MG; Start 05/22/16 at 22:00 Hydralazine HCl (Apresoline) 10 mg Q6H PRN IV sbp>170; Start 05/22/16 at 21:00 Clonidine (Catapres) 0.1 mg Q4H PRN PO systolic BP >170; Start 05/22/16 at 21: 30 Epoetin Cayden (Epogen (Esrd)) 10,000 units MoWeFr@17 SC Last administered on 17:21; Admin Dose 10,000 UNITS; Start 05/24/16 at 17:00 Insulin Glargine (Lantus) 25 unit DAILY SC Last administered on 05/26/16 09:44 ; Admin Dose 25 UNIT; Start 05/24/16 at 09:00 Sildenafil Citrate (Revatio) 20 mg BID PO Last administered on 05/25/16 20:24 ; Admin Dose 20 MG; Start 05/24/16 at 15:00 Pneumococcal Polyvalent Vaccine (Pneumovax-23) 0.5 ml ONCE ONCE IM* ; Start at 15:00; Stop 05/24/16 at 15:01; Status UNV Miscellaneous Information (*Order Clarification Bulletin) MEDICATION REQUIRES CLARIFICATI... Q24H XX ; Start 05/25/16 at 09:00 Methylprednisolone Sodium Succinate (Solu-Medrol) 20 mg Q12 IV Last administered on 05/26/16 09:40; Admin Dose 20 MG; Start 05/24/16 at 20:00 Insulin Glargine (Lantus) 15 unit QHS SC Last administered on 05/25/16 20:26; Admin Dose 15 UNIT; Start 05/24/16 at 22:30 ZENA HERNANDEZ May 26, 2016 14:36
--- NOTE | 2016-05-26 15:38 | RADRPT ---
PROCEDURE: XR Chest. CLINICAL INDICATION: Cough and shortness of breath. TECHNIQUE: Single frontal view. COMPARISON: 05/22/2016. FINDINGS: There are low lung volumes. There is bilateral interstitial disease consistent with pulmonary edema . There is mild left basilar atelectasis. The lungs are otherwise clear. The heart is enlarged. Calcification is present in the aorta consistent with atherosclerosis. There is no pleural effusion. There is no pneumothorax. IMPRESSION: 1. Low lung volumes. 2. Pulmonary edema. 3. Mild left basilar atelectasis. 4. Cardiomegaly and atherosclerosis. RPTAT: QQ .Carroll Gaines MD, MD Date Time Electronically viewed and signed by .Carroll Gaines MD, MD on 05/26/2016 15:38 .R/
[2016-05-28] MEDS ORDERED: EPOETIN 2000 UNITS/1 ML INJ (ESRD) SC SCH (17:00)
== END 2016-05-26 16:30 | disposition left against medical advice (07) | DRG 291 ==
LOC: E/R 04:55 → TEL 08:44
PROVIDERS: ADMIT Internal Medicine; ATTEND Internal Medicine
DX: I50.43 Acute on chronic combined systolic (congestive) and diastolic (congestive) heart failure (principal); N17.0 Acute kidney failure with tubular necrosis; Z94.0 Kidney transplant status; D61.818 Other pancytopenia; E87.5 Hyperkalemia; J20.9 Acute bronchitis, unspecified; I35.0 Nonrheumatic aortic (valve) stenosis; E11.9 Type 2 diabetes mellitus without complications; Z79.4 Long term (current) use of insulin; I12.9 Hypertensive chronic kidney disease with stage 1 through stage 4 chronic kidney disease, or unspecified chronic kidney disease; N18.9 Chronic kidney disease, unspecified
CPT/HCPCS: 36415; 36430; 70450; 71010; 80048; 80053; 81001; 81003; 82962; 83735; 83880; 84100; 84484; 85025; 85610; 85730; 86850; 86900; 86901; 86920; 87040; 87086; 87400; 90732; 93005; 93306; 93880; 94640; 94644; 94664; 96365; 96366; 96368; 96375; J0456; J0696; J0886; J1815; J1940; J2270; J2405; J2920; J7507; J7512; J7517; P9016

== ENCOUNTER 2016-09-15 19:20 | Inpatient (IN) | payer MEDICARE, OTHER ==
[~2016-09-15] VITALS: Ht 162.6 cm; Wt 65.0 kg
[~2016-09-15 19:20] MED LIST changes: +FURO-109 PO; -FURO40TA PO; -LAB200 PO; +LABE200T43 PO; +LEVO250T9 PO; +PRED20TA PO
[2016-09-15 19:30] VITALS: Ht 162.6 cm; Wt 65.0 kg
--- NOTE | 2016-09-15 22:13 | ERA ---
ER Documentation Chief Complaint Date/Time DATE: 09/15/16 TIME: 22:13 Chief Complaint shortness of breath HPI The patient is a 56-year-old male, presenting to the ER because of shortness of breath, bloated abdomen, diarrhea for the last 3-4 days. His blood pressure was elevated at about 6 PM at 185/103. He denies headache, fever, chills, neck pain, chest pain, nausea, vomiting, dysuria. 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 Medications Home Meds Reported Medications Epoetin Cayden (Procrit) 20,000 Unit/1 Ml Vial, 22095 UNIT IJ, VIAL 09/16/16 Vitamin B Complex* (Vitamin B Complex*) 1 Each Tablet, 1 TAB PO DAILY, TAB 09/16/16 Insulin Glargine* (Lantus*) 100 Unit/Ml Soln, 25 UNIT SC BID, #1 VIAL 09/16/16 Tamsulosin Hcl* (Flomax*) 0.4 Mg Cap.er.24h, 0.8 MG PO WITH BREAKFAST DINNE, CAP 09/16/16 Furosemide* (Lasix*) 40 Mg Tablet, 40 MG PO DAILY, TAB 03/03/16 Labetalol Hcl* (Labetalol Hcl*) 100 Mg Tablet, 100 MG PO BID, TAB 03/03/16 Sodium Bicarbonate (Antacid) 650 Mg Tablet, 1300 MG PO BID, TAB 03/03/16 Insulin Aspart* (Novolog Insulin Pen*) 100 Unit/Ml Soln, 0 SC .SLIDING SCALE EVA ARORA 06/15/15 Folic Acid* (Folic Acid*) 1 Mg Tablet, 1 MG PO BID, TAB 0 Refills 09/29/14 Omeprazole* (Omeprazole*) 40 Mg Capsule.dr, 40 MG PO DAILY, CAP 02/24/14 Prednisone* (Prednisone*) 5 Mg Tab, 5 MG PO DAILY, TAB 02/24/14 Discontinued Reported Medications Insulin Aspart* (Novolog Insulin Pen*) 100 Unit/Ml Soln, 0 SC .SLIDING SCALE AC , EA PATIENT SAID 4 UNITS THEN SLIDING SCALE 09/16/16 Cyanocobalamin* (Vitamin B-12*) 50 Mcg Tablet, 50 MCG PO DAILY, TAB 09/16/16 Prednisone* (Prednisone*) 20 Mg Tab, 20 MG PO DAILY, TAB FOR 5 DAYS FILLED ON05-19-16 05/22/16 Levofloxacin* (Levofloxacin*) 250 Mg Tablet, 250 MG PO DAILY, TAB FOR 10 DAYS FILLED ON 05-19-16 05/22/16 Mycophenolate Mofetil* (Cellcept*) 250 Mg Capsule, 500 MG PO BID, CAP 03/03/16 Metoprolol Succinate* (Toprol XL*) 25 Mg Tab.sr.24h, 25 MG PO DAILY, #30 TAB 03/03/16 Insulin Glargine* (Lantus*) 100 Unit/Ml Soln, 33 UNIT SC BID, #1 VIAL 03/03/16 Epoetin Cayden (Procrit) 2,000 Unit/1 Ml Vial, 2000 UNIT IJ ONCE A MONTH, VIAL 03/03/16 Zolpidem Tartrate* (Ambien*) 5 Mg Tablet, 5 MG PO QHS Y for INSOMNIA, #30 TAB 07/19/15 Tacrolimus* (Prograf*) 1 Mg Capsule, 1 MG PO HS 03/09/15 Tacrolimus* (Prograf*) 1 Mg Capsule, 2 MG PO DAILY, CAP 0 Refills 09/29/14 Multivit/Ca Carb/B Cmplx/Fa* (Delmy-Mario*) 1 Tab Tab, 1 TAB PO DAILY, TAB 02/24/14 Tamsulosin Hcl* (Tamsulosin Hcl*) 0.4 Mg Cap.er.24h, 0.4 MG PO HS, CAP 0 Refills 02/24/14 Discontinued Scripts Labetalol Hcl* (Normodyne*) 200 Mg Tab, 300 MG PO TID for 30 Days, TAB Prov:DELFINONEHEMIAH 07/28/15 Allergies Allergies: Coded Allergies: No Known Allergies (Verified Allergy, Unknown, 09/16/16) PMhx/Soc History of Surgery: Yes (, gallbladder suregry) Anesthesia Reaction: Yes (had hallucination post kidney transplant) Hx Neurological Disorder: No Hx Respiratory Disorders: No Hx Cardiac Disorders: Yes (HTN, CHF) Hx Psychiatric Problems: No Hx Miscellaneous Medical Probl: Yes (myeloproliferative disease) Hx Alcohol Use: No Hx Substance Use: No Hx Tobacco Use: Yes Physical Exam Vitals Vital Signs Date Time Temp Pulse Resp B/P Pulse Ox O2 Delivery O2 Flow Rate FiO2 09/16/16 02:00 69 20 183/103 98 09/16/16 01:27 72 20 100 21 09/16/16 01:15 69 20 150/96 98 09/15/16 22:51 98.9 20 145/85 98 09/15/16 19:30 98.9 80 20 181/84 98 Physical Exam Const: No acute distress. Head: Atraumatic. Eyes: Normal Conjunctiva. ENT: Normal External Ears, Nose and Mouth. Neck: Full range of motion. No meningismus. Resp: Bibasilar crackle Cardio: Regular rate and rhythm, no murmurs. Abd: Soft, non distended, normal bowel sounds, non tender. Skin: No petechiae or rashes. Back: No midline or flank tenderness. Ext: Right lower extremity edema, no calf tenderness Neur: Awake and alert. No focal deficit Psych: Normal Mood and Affect. Result Diagram: 09/15/167 09/15/16 7258 Results 24 hrs Laboratory Tests Test 09/15/16 22:47 09/15/16 23:58 White Blood Count 3.710^3/ul Red Blood Count 3.4410^6/ul Hemoglobin 10.3g/dl Hematocrit 32.3% Mean Corpuscular Volume 93.9fl Mean Corpuscular Hemoglobin 29.9pg Mean Corpuscular Hemoglobin Concent 31.9g/dl Red Cell Distribution Width 15.9% Platelet Count 3710^3/UL Mean Platelet Volume fl Neutrophils % 71.3% Lymphocytes % 22.4% Monocytes % 5.5% Eosinophils % 0.3% Basophils % 0.0% Nucleated Red Blood Cells % 0.0/100WBC Neutrophils # 2.610^3/ul Lymphocytes # 0.810^3/ul Monocytes # 0.210^3/ul Eosinophils # 0.010^3/ul Basophils # 0.010^3/ul Nucleated Red Blood Cells # 0.010^3/ul Platelet Estimate PLT APPEAR DECREASED Large Platelets FEW Prothrombin Time 15.5Sec Prothrombin Time Ratio 1.2 INR International Normalized Ratio 1.22 Activated Partial Thromboplast Time 29.2Sec Sodium Level 129mmol/L Potassium Level 5.9mmol/L Chloride Level 108mmol/L Carbon Dioxide Level 16mmol/L Anion Gap 11 Blood Urea Nitrogen 70mg/dl Creatinine 3.20mg/dl Glucose Level 468mg/dl Calcium Level 8.2mg/dl Troponin I 0.034ng/ml B-Type Natriuretic Peptide [id number] Current Medications Medications (Trade) Dose Ordered Sig/Janiya Route PRN Reason Start Time Stop Time Status Last Admin Dose Admin Furosemide (Lasix) 80 mg ONCE ONCE IV 09/16/16 01:30 09/16/16 01:31 DC 09/16/16 01:43 Insulin Human Regular (Humulin R) 10 unit ONCE ONCE IV 09/16/16 01:30 09/16/16 01:31 DC 09/16/16 01:44 Sodium Polystyrene Sulfonate (Kayexalate) 30 gm ONCE ONCE PO 09/16/16 01:30 09/16/16 01:31 DC 09/16/16 01:42 Albuterol (Proventil 0.5% (Neb)) 15 mg ONCE ONCE INH 09/16/16 01:30 09/16/16 01:31 DC 09/16/16 01:27 Albuterol (Proventil 0.5% (Neb)) 2.5 mg STK-MED ONCE .ROUTE 09/16/16 01:21 09/16/16 01:22 DC Albuterol (Proventil 0.5% (Neb)) 2.5 mg STK-MED ONCE .ROUTE 09/16/16 01:21 09/16/16 01:22 DC Procedures/MDM EKG: Read by emergency physician Rate/Rhythm: Normal Sinus Rhythm 71 beats/min with sinus arrhythmia QRS, ST, T-waves: No ST elevation, no T inversion, inferior, lateral ST and T abnormality Impression: Abnormal EKG [place] [id number] Radiology Main Line: [phone] DIAGNOSTIC IMAGING REPORT Patient: JAYME TURNER : 1960 Age: 56 Sex: M MR #: [id number] DOS: 09/15/16 2220 Ordering MD: KATRIN ALVARADO MD Location: E/R Room/Bed: PROCEDURE: XR Chest. CLINICAL INDICATION: Dyspnea. Chest pain. TECHNIQUE: Single frontal view of the chest. COMPARISON: 05/26/2016. FINDINGS: Cardiomegaly. Mild bibasilar atelectasis, decreased over interval. No signs of pleural fluid or pneumothorax are seen. The osseous structures and soft tissues are unremarkable. IMPRESSION: Decreased bilateral lung base atelectasis, which remains left greater than right. RPTAT: [facility] Brendan Samson Physician Date Time Electronically viewed and signed by Brendan Samson Physician on 09/16/2016 00:51 RS/ CC: KATRIN ALVARADO MD MEDICAL MAKING DECISION: The patient is a 56-year-old male, presenting with acute CHF exacerbation, acute hyperkalemia, acute diabetic hyperglycemia. He was treated with Lasix 80 mg IV for acute CHF exacerbation, Regular Insulin 10 units IV, Kayexalate 30 g p.o. and albuterol 15 mg nebulizer over 30 minutes for acute hyperkalemia with good response. Critical Care: Time: 35 minutes excluding all billable procedures. Treatments/Evaluations: Close monitoring and treatment of unstable vital signs, cardiorespiratory, and neurologic status, while maintaining tight balance of fluid, respiratory, and cardiac interventions. Departure Diagnosis: Primary Impression: Hyperkalemia Additional Impressions: CHF (congestive heart failure) Diabetes mellitus with hyperglycemia Anemia Condition: Stable Comments I discussed the findings with the patient. I discussed the patient with the on- call hospitalist Dr. Hall who was made aware of the lab, the treatment, the patient condition. The patient is admitted to telemetry at 1:30 AM KATRIN ALVARADO MD September 15, 2016 22:13
[2016-09-15 22:51] VITALS: TEMP 98.9
[2016-09-15 23:23] LABS: ADD SCAN DIFF NO
[2016-09-15 23:24] LABS: ABNORMAL IP MESSAGE 1; EOSINOPHILS % 0.3 % (0.0-7.0); HEMATOCRIT 32.3 % (42.0-52.0); HEMOGLOBIN 10.3 g/dl (14.0-18.0); LYMPHOCYTES # 0.8 10^3/ul (0.8-2.9); LYMPHOCYTES % 22.4 % (15.0-51.0); MEAN CORPUSCULAR HEMOGLOBIN 29.9 pg (29.0-33.0); MEAN CORPUSCULAR HGB CONC 31.9 g/dl (32.0-37.0); MEAN CORPUSCULAR VOLUME 93.9 fl (82.0-101.0); MONOCYTE # 0.2 10^3/ul (0.3-0.9); MONOCYTES % 5.5 % (0.0-11.0); NEUTROPHIL # 2.6 10^3/ul (1.6-7.5); NEUTROPHILS % 71.3 % (39.0-77.0); RED BLOOD COUNT 3.44 10^6/ul (4.70-6.10); RED CELL DISTRIBUTION WIDTH 15.9 % (11.5-14.5); WHITE BLOOD COUNT 3.7 10^3/ul (4.8-10.8)
[2016-09-15 23:42] LABS: INR 1.22; PROTIME 15.5 Sec (12.2-14.2); PT RATIO 1.2
[2016-09-15 23:43] LABS: PARTIAL THROMBOPLASTIN TIME 29.2 Sec (25.0-35.0)
[2016-09-15 23:54] LABS: PLATELET COUNT 37 10^3/UL (140-415)
[2016-09-15 23:57] LABS: PLATELET ESTIMATE PLT APPEAR DECREASED
[2016-09-16 00:32] LABS: CALCIUM 8.2 mg/dl (8.4-10.2); CREATININE 3.2 mg/dl (0.61-1.24); POTASSIUM 5.9 mmol/L (3.5-5.1)
[2016-09-16] MEDS ORDERED: TAMS-14 PO (00:37)
[2016-09-16] MEDS ORDERED: CYAN50TA PO (00:37)
[2016-09-16] MEDS ORDERED: LANT3I SC (00:39)
[2016-09-16] MEDS ORDERED: NOVO3I SC (00:41)
[2016-09-16 00:45] LABS: TROPONIN-I 0.034 ng/ml (0.00-0.12)
[2016-09-16] MEDS ORDERED: VIT1TABL46 PO (00:47)
[2016-09-16] MEDS ORDERED: EPOE200014 IJ (00:50)
--- NOTE | 2016-09-16 00:51 | RADRPT ---
PROCEDURE: XR Chest. CLINICAL INDICATION: Dyspnea. Chest pain. TECHNIQUE: Single frontal view of the chest. COMPARISON: 05/26/2016. FINDINGS: Cardiomegaly. Mild bibasilar atelectasis, decreased over interval. No signs of pleural fluid or pne umothorax are seen. The osseous structures and soft tissues are unremarkable. IMPRESSION: Decreased bilateral lung base atelectasis, which remains left greater than right. RPTAT: [facility] Physician Eitan Date Time Electronically viewed and signed by Physician Eitan on 09/16/2016 00:51 RS/
[2016-09-16] MEDS ORDERED: ALBUTEROL 0.5% (NEB) 2.5 MG/0.5 ML AMP ONE ×2 (01:21)
[2016-09-16] MEDS ORDERED: INSULIN REGULAR, HUMAN 100 UNIT/1 ML 3ML VIAL IV ONE (01:30)
[2016-09-16] MEDS ORDERED: NA POLYST SULFON 15 GM/60 ML BTL PO ONE (01:30)
[2016-09-16] MEDS ORDERED: ALBUTEROL 0.5% (NEB) 2.5 MG/0.5 ML AMP INH ONE (01:30)
[2016-09-16] MEDS ORDERED: FUROSEMIDE 40 MG INJ IV ONE (01:30)
[2016-09-16 03:52] VITALS: BP 128/85; RESP 16
[2016-09-16] MEDS ORDERED: morphine 4 MG/ML VIAL IV PRN (04:30)
[2016-09-16] MEDS ORDERED: ONDANSETRON 4 MG INJ IV PRN (04:30)
[2016-09-16] MEDS ORDERED: hydrALAzine 20 MG INJ IV PRN (04:30)
[2016-09-16] MEDS ORDERED: ACETAMINOPHEN 325 MG TAB PO PRN (04:30)
[2016-09-16 04:38] VITALS: PULSE 72
[2016-09-16] MEDS ORDERED: GLUCOSE GEL 15 GRAM TUBE BUCCAL PRN (04:45)
[2016-09-16] MEDS ORDERED: GLUCAGON 1 MG INJ IM PRN (04:45)
[2016-09-16] MEDS ORDERED: DEXTROSE 50% 50 ML SYRINGE IV PRN ×2 (04:45)
[2016-09-16] MEDS ORDERED: GLUCOSE GEL 15 GRAM TUBE PO PRN ×2 (04:45)
[2016-09-16] MEDS ORDERED: FUROSEMIDE 40 MG INJ IV SCH (06:00)
[2016-09-16] MEDS ORDERED: INSULIN ASPART [NOVOLOG] 3 ML PEN SC SCH ×2 (08:00)
[2016-09-16] MEDS ORDERED: INSULIN GLARGINE [LANtus] 3 ML PEN SC SCH (08:00)
[2016-09-16] MEDS ORDERED: NA BICARBONATE 650 MG TAB PO SCH (09:00)
[2016-09-16] MEDS ORDERED: LABETALOL 200 MG TAB PO SCH (09:00)
[2016-09-16] MEDS ORDERED: HEPARIN 5,000 UNIT/0.5 ML VIAL SC SCH (09:00)
[2016-09-16] MEDS ORDERED: TAMSULOSIN (SR) 0.4 MG CAP PO SCH (09:00)
[2016-09-16] MEDS ORDERED: predniSONE 5 MG TAB PO SCH (09:00)
[2016-09-16] MEDS ORDERED: FOLIC ACID 1 MG TAB PO SCH (09:00)
[2016-09-16] MEDS ORDERED: VITAMIN B COMPLEX/VIT C CAP PO SCH (09:00)
[2016-09-16] MEDS ORDERED: FAMOTIDINE 20 MG TAB PO SCH (09:00)
[2016-09-16] MEDS ORDERED: LABETALOL 100 MG TAB PO SCH (21:00)
[2016-09-17] MEDS ORDERED: ACCU-CHEK XX SCH ×2 (02:00)
== END 2016-09-16 06:45 | disposition left against medical advice (07) | DRG 641 ==
LOC: E/R 19:20 → MS4 09-16 02:11
PROVIDERS: ADMIT Internal Medicine; ATTEND Internal Medicine
DX: E87.5 Hyperkalemia (principal); E11.22 Type 2 diabetes mellitus with diabetic chronic kidney disease; I13.0 Hypertensive heart and chronic kidney disease with heart failure and stage 1 through stage 4 chronic kidney disease, or unspecified chronic kidney disease; I50.9 Heart failure, unspecified; C94.6 Myelodysplastic disease, not elsewhere classified; E11.65 Type 2 diabetes mellitus with hyperglycemia; N18.9 Chronic kidney disease, unspecified; Z94.0 Kidney transplant status; Z87.891 Personal history of nicotine dependence; Z79.4 Long term (current) use of insulin; Z89.511 Acquired absence of right leg below knee
CPT/HCPCS: 36415; 71010; 80048; 82962; 83880; 84484; 85025; 85610; 85730; 93005; 94664; 96374; 96375; J1815; J1940; J7512

== ENCOUNTER 2016-11-15 14:10 | Inpatient (IN) | payer MEDICARE, OTHER ==
[~2016-11-15] VITALS: Ht 167.6 cm; Wt 70.0 kg
[~2016-11-15 14:10] MED LIST changes: +EPOE200014 IJ; -EPOE200015 IJ; -LABE200T43 PO; -LEVO250T9 PO; -METO25TA7 PO; -MYCO250C3 PO; -NEPH PO; -PRED20TA PO; -TACR1CAP26 PO; +TAMS-14 PO; -TAMS0.4C2 PO; +VIT1TABL46 PO; -ZOLP5TAB PO
[2016-11-15 17:44] VITALS: Ht 167.6 cm; Wt 70.0 kg
[2016-11-15 18:06] VITALS: BP 141/76; PULSE 75; RESP 21
--- NOTE | 2016-11-15 18:59 | HP ---
Date/Time of Note Date/Time of Note DATE: 11/15/16 TIME: 18:52 Assessment/Plan VTE Prophylaxis VTE Prophylaxis Intervention: SCD's Assessment/Plan Assessment/Plan -End-stage renal disease. Dr. Torres is following a nephrology consultation. Plan to start hemodialysis upon Missael catheter insertion by radiology. -Failed renal transplant -Diabetes mellitus, continue Lantus and NovoLog. -Hypertension, kidney labetalol. 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 Dr. Carr will be following patient in hematology consultation. Further recommendations based on clinical course. Plan of care discussed with Dr. Maloney. HPI/ROS Admit Date/Time Admit Date/Time Nov 15, 2016 at 17:18 Hx of Present Illness The patient is a 56-year-old gentleman with past medical history positive for hypertension, CHF, diabetes mellitus, pulmonary hypertension, aortic stenosis, end-stage renal disease status post kidney transplant with chronic allograft nephropathy and chronic rejection, myelofibrosis, left eye blindness. Patient is followed by Dr. Torres in nephrology consultation. Patient is admitted for initiation of hemodialysis due to end-stage renal disease and kidney transplant failure. He complains of mild headache and generalized weakness, denies nausea/vomiting, denies chest pain,denies SOB. ROS Negative except what mentioned in HPI. Constitutional: fatigue Eyes: no complaints ENT: no complaints Respiratory: no complaints PMH/Family/Social Past Medical History hypertension, CHF, diabetes mellitus, pulmonary hypertension, aortic stenosis, end-stage renal disease status post kidney transplant with chronic allograft nephropathy and chronic rejection, myelofibrosis. Medical History: diabetes, hypertension, renal disease Past Surgical History Status post kidney transplant in 2011, status post left below-knee amputation. Past Surgical Hx: appendectomy Family History Significant Family History: no pertinent family hx Social History Alcohol Use: none Smoking Status: Former smoker Drug Use: none Exam/Review of Systems Vital Signs Vitals Vital Signs Date Time Temp Pulse Resp B/P Pulse Ox O2 Delivery O2 Flow Rate FiO2 11/15/16 18:06 98.7 75 21 141/76 100 Room Air Exam Constitutional: alert, oriented Head: atraumatic, normocephalic Eyes: other (left eye blind) Neck: supple Respiratory: normal air movement Cardiovascular: nl pulses Gastrointestinal: non-tender, soft Extremities: normal pulses, other (L BKA) Neurological: nl mental status Skin: nl turgor, other (RLE multiple abrasions) NEHEMIAH SALEH Nov 15, 2016 18:59
[2016-11-15] MEDS ORDERED: GLUCOSE GEL 15 GRAM TUBE PO PRN ×2 (19:30)
[2016-11-15] MEDS ORDERED: POLYETHYLENE GLYCOL 17 GM PACKET GTB PRN (19:30)
[2016-11-15] MEDS ORDERED: GLUCOSE GEL 15 GRAM TUBE BUCCAL PRN (19:30)
[2016-11-15] MEDS ORDERED: ACETAMINOPHEN 325 MG TAB PO PRN (19:30)
[2016-11-15] MEDS ORDERED: DEXTROSE 50% 50 ML SYRINGE IV PRN ×2 (19:30)
[2016-11-15] MEDS ORDERED: ONDANSETRON 4 MG INJ IV PRN (19:30)
[2016-11-15] MEDS ORDERED: GLUCAGON 1 MG INJ IM PRN (19:30)
[2016-11-15 20:00] VITALS: BP 144/80; RESP 18
--- NOTE | 2016-11-15 20:15 | CONS ---
Date/Time of Note Date/Time of Note DATE: 11/15/16 TIME: 20:00 Assessment/Plan Assessment/Plan Chief Complaint/Hosp Course Impression: 1. 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 End-stage renal disease 3. History of congestive heart failure 4. Hypertension 5. Gastroesophageal reflux disease 6. Insulin-dependent diabetes mellitus 7. Pancytopenia with severe thrombocytopenia 8. Diabetic retinopathy blind in left eye 9. Peripheral artery disease status post left leg below the knee amputation This patient is being admitted now to start hemodialysis. The patient will need a vascular catheter placed. Because of his low platelet count he will need a platelet transfusion prior to the insertion of the vascular catheter. Plan: 1. Routine laboratory tests ordered 2. Resume routine medications 3. Dr. Jaqueline Carr consulted to see patient for pancytopenia and thrombocytopenia 4. Arrange for vascular catheter for hemodialysis 5. Patient to start hemodialysis during this admission. 6. I have discussed this with the patient and his . Problems: Consultation Date/Type/Reason Admit Date/Time Nov 15, 2016 at 17:18 Date of Consultation: Nov 15, 2016 Type of Consultation: renal Reason for Consultation renal failure Referring Provider: MICHELLE LAGOS MD Hx of Present Illness This 56-year-old man is being seen now for chronic kidney disease. This patient has a history of chronic kidney disease due to long-standing diabetes mellitus. The patient was initially on hemodialysis until 2011 when he received a cadaveric renal transplant at [facility]. The kidney transplant has been failing due to chronic rejection. The patient had labs done by me this week which showed a serum creatinine of 4.2 and a BUN of 108. The patient has been on high doses of diuretics because of congestive heart failure and lower extremity edema. He is currently taking Lasix 40 mg a day with metolazone 2.5 mg a day. He feels some fatigue at this time; however, he denies any chest pain , shortness of breath , nausea or vomiting. He has been followed at [facility] kidney transplant center. They have tried various protocols to try and save his transplanted kidney; however, the treatments have failed and he is now at end-stage renal disease. The other major problem is the patient has had pancytopenia and very low platelet counts. His last platelet count on a my office was 30,000. He denies any bleeding Constitutional: no complaints Eyes: visual change ENT: no complaints Respiratory: no complaints Cardiovascular: no complaints Gastrointestinal: no complaints Genitourinary: other Musculoskeletal: no complaints Neurologic: no complaints Psychological: no complaints Past Medical History Past medical history: 1. Failing cadaveric kidney transplant with end-stage renal disease 2. Hypertension 3. Gastroesophageal reflux disease 3. Insulin-dependent diabetes mellitus 4. Pancytopenia with severe thrombocytopenia 5. Diabetic neuropathy 6. Peripheral artery disease status post left below the knee amputation 7. Diabetic retinopathy blind in the left eye Medical History: congestive heart failure, diabetes, hypertension, renal disease Past Surgical History 1. Left leg amputation below the knee 2. Cadaveric kidney transplant in 2011 3. Cholecystectomy 4. Cataract extraction 5. Tonsillectomy Past Surgical Hx: appendectomy Family History Significant Family History: diabetes Social History Alcohol Use: none Smoking Status: Former smoker Drug Use: none Exam/Review of Systems Vital Signs Vitals Vital Signs Date Time Temp Pulse Resp B/P Pulse Ox O2 Delivery O2 Flow Rate FiO2 11/15/16 18:06 98.7 75 21 141/76 100 Room Air Exam Status post left below the knee amputation, right leg wrinkled with some excoriations. Constitutional: alert, frail, oriented Psych: nl mood/affect, no complaints Respiratory: clear to auscultation, normal air movement Cardiovascular: murmurs/extra sounds, regular rate and rhythm Gastrointestinal: non-tender, soft Neurological: COBOL ENGINEER II-XII intact Results Results 24 hrs Laboratory Tests Test 11/15/16 18:22 Bedside Glucose 180 Medications Medications Current Medications Folic Acid (Folic Acid) 1 mg BID PO ; Start 11/15/16 at 21:00 Insulin Glargine (Lantus) 25 unit BID SC ; Start 11/15/16 at 21:00 Labetalol HCl (Normodyne) 100 mg BID PO ; Start 11/15/16 at 21:00 Miscellaneous Information 1 ea NOTE XX ; Start 11/15/16 at 19:30 Glucose (Glutose) 15 gm Q15M PRN PO DECREASED GLUCOSE; Start 11/15/16 at 19:30 Glucose (Glutose) 22.5 gm Q15M PRN PO DECREASED GLUCOSE; Start 11/15/16 at 19: 30 Dextrose (D50w Syringe) 25 ml Q15M PRN IV DECREASED GLUCOSE; Start 11/15/16 at 19:30 Dextrose (D50w Syringe) 50 ml Q15M PRN IV DECREASED GLUCOSE; Start 11/15/16 at 19:30 Glucagon (Glucagen) 1 mg Q15M PRN IM DECREASED GLUCOSE; Start 11/15/16 at 19:30 Glucose (Glutose) 15 gm Q15M PRN BUCCAL DECREASED GLUCOSE; Start 11/15/16 at 19 :30 Diagnostic Test (Pha) (Accu-Chek) 1 ea 02 XX ; Start 11/16/16 at 02:00 Ondansetron HCl (Zofran Inj) 4 mg Q6H PRN IV NAUSEA AND/OR VOMITING; Start 04/22 at 19:30 Acetaminophen (Tylenol Tab) 650 mg Q6H PRN PO PAIN LEVEL 1-3 OR FEVER; Start at 19:30 Morphine Sulfate (morphine) 2 mg Q4H PRN IV SEVERE PAIN LEVEL 7-10; Start 11/15 at 19:30 Zolpidem Tartrate (Ambien) 5 mg QHS PRN PO SLEEP; Start 11/15/16 at 19:30 Pantoprazole (Protonix Tab) 40 mg DAILY@06 PO ; Start 11/16/16 at 06:00 Docusate Sodium (Colace) 100 mg BID PO ; Start 11/15/16 at 21:00 Polyethylene Glycol (Miralax) 17 gm DAILY PRN GTB CONSTIPATION; Start 11/15/16 at 19:30 Furosemide (Lasix) 40 mg DAILY PO ; Start 11/16/16 at 09:00; Status UNV Prednisone (Prednisone) 5 mg DAILY PO ; Start 11/16/16 at 09:00; Status UNV Sodium Bicarbonate (Sodium Bicarbonate Tab) 1,300 mg BID PO ; Start 11/15/16 at 21:00; Status UNV Vitamin B Complex/ Vitamin C (Berocca) 1 cap DAILY PO ; Start 11/16/16 at 09:00 ; Status UNV Miscellaneous Information 40 mg DAILY PO ; Start 11/16/16 at 09:00; Status UNV SPRING CHAVEZ MD Nov 15, 2016 20:11
[2016-11-15 20:31] LABS: ADD SCAN DIFF NO
[2016-11-15 20:39] LABS: ABNORMAL IP MESSAGE 1; HEMATOCRIT 33.4 % (42.0-52.0); HEMOGLOBIN 11.1 g/dl (14.0-18.0); MEAN CORPUSCULAR HEMOGLOBIN 29.5 pg (29.0-33.0); MEAN CORPUSCULAR HGB CONC 33.2 g/dl (32.0-37.0); MEAN CORPUSCULAR VOLUME 88.8 fl (82.0-101.0); PLATELET COUNT 55 10^3/UL (140-415); RED BLOOD COUNT 3.76 10^6/ul (4.70-6.10); RED CELL DISTRIBUTION WIDTH 15.3 % (11.5-14.5); WHITE BLOOD COUNT 5.8 10^3/ul (4.8-10.8)
[2016-11-15 20:49] LABS: INR 1.19; PROTIME 15.2 Sec (12.2-14.2); PT RATIO 1.2
[2016-11-15 20:50] LABS: PARTIAL THROMBOPLASTIN TIME 31.2 Sec (25.0-35.0)
[2016-11-15 20:54] LABS: ALBUMIN 4.4 g/dl (3.3-4.9); ALBUMIN/GLOBULIN RATIO 1.29; BILIRUBIN,INDIRECT 0.1 mg/dl (0-1.1); BILIRUBIN,TOTAL 0.1 mg/dl (0.2-1.3); CREATININE 4.61 mg/dl (0.61-1.24); POTASSIUM 4.8 mmol/L (3.5-5.1); TOTAL PROTEIN 7.8 g/dl (6.1-8.1)
[2016-11-15] MEDS: DOCUSATE SODIUM 100 MG CAP PO SCH (21:07)
[2016-11-15] MEDS: LABETALOL 100 MG TAB PO SCH (21:08)
[2016-11-15 21:10] LABS: LYMPHOCYTES # 0.6 10^3/ul (0.8-2.9); MONOCYTE # 0.2 10^3/ul (0.3-0.9)
[2016-11-15] MEDS: INSULIN ASPART [NOVOLOG] 3 ML PEN SC SCH (21:10)
[2016-11-15 21:12] LABS: ANISOCYTOSIS FEW; PLATELET ESTIMATE PLT APPEAR DECREASED
[2016-11-15] MEDS: INSULIN GLARGINE [LANtus] 3 ML PEN SC SCH (21:12)
[2016-11-15] MEDS ORDERED: CLON-379 PO (21:23)
[2016-11-15] MEDS: NA BICARBONATE 650 MG TAB PO SCH (22:05)
[2016-11-15] MEDS: TACROLIMUS 0.5 MG CAP PO SCH (22:05)
[2016-11-15] MEDS: FOLIC ACID 1 MG TAB PO SCH (22:06)
[2016-11-15] MEDS: morphine 2 MG INJ IV PRN (22:11)
[2016-11-15] MEDS: ZOLPIDEM 5 MG TAB PO PRN (23:42)
--- NOTE | 2016-11-16 00:41 | RADRPT ---
PROCEDURE: XR Chest. CLINICAL INDICATION: CHF TECHNIQUE: Single AP portable chest. COMPARISON: 05/26/2016 Chest x-ray FINDINGS: The cardiac silhouette is enlarged. Left lower lobe/lingular atelectasis or scarring. The lungs ar e otherwise clear without pleural effusion or focal consolidation. No pneumothorax. The osseous str uctures and soft tissues are unremarkable. IMPRESSION: 1. No evidence for active cardiopulmonary disease. RPTAT:AAJJ Rl Roca Physician Date Time Electronically viewed and signed by Rl Roca Physician on 11/16/2016 00:41 ALEKSANDR/
[2016-11-16 02:00] VITALS: BP 138/85; PULSE 70; RESP 18
[2016-11-16] MEDS: ACCU-CHEK XX SCH (02:00)
[2016-11-16] MEDS: PANTOPRAZOLE (EC) 40 MG TAB PO SCH (06:38)
[2016-11-16] MEDS: INSULIN ASPART [NOVOLOG] 3 ML PEN SC SCH ×4 (07:50→20:41)
[2016-11-16] MEDS: INSULIN GLARGINE [LANtus] 3 ML PEN SC SCH ×2 (07:53→20:40)
[2016-11-16 08:20] VITALS: BP 133/71; RESP 18
[2016-11-16] MEDS: NA BICARBONATE 650 MG TAB PO SCH ×2 (08:24→20:38)
[2016-11-16] MEDS: LABETALOL 100 MG TAB PO SCH ×2 (08:25→20:39)
[2016-11-16] MEDS: TAMSULOSIN (SR) 0.4 MG CAP PO SCH ×2 (08:25→17:17)
[2016-11-16] MEDS: TACROLIMUS 0.5 MG CAP PO SCH ×2 (08:25→20:37)
[2016-11-16] MEDS: VITAMIN B COMPLEX/VIT C CAP PO SCH (08:25)
[2016-11-16] MEDS: DOCUSATE SODIUM 100 MG CAP PO SCH ×2 (08:25→20:38)
[2016-11-16] MEDS: FOLIC ACID 1 MG TAB PO SCH ×2 (08:25→20:38)
[2016-11-16] MEDS: FUROSEMIDE 40 MG TAB PO SCH (08:35)
[2016-11-16] MEDS: predniSONE 5 MG TAB PO SCH (08:35)
[2016-11-16] MEDS ORDERED: NON-FORMULARY/PATIENT OWN MED (Omeprazole* 40 MG) PO SCH (09:00)
[2016-11-16 10:20] LABS: UR BACTERIA FEW /HPF (NONE SEEN); UR RBC 1 /HPF (0-5)
[2016-11-16 10:28] LABS: ADD UMIC YES; UR ASCORBIC ACID NEGATIVE (NEGATIVE); UR BILIRUBIN (Dip) NEGATIVE (NEGATIVE); UR BLOOD (Dip) NEGATIVE (NEGATIVE); UR CLARITY CLEAR (CLEAR); UR COLOR YELLOW (YELLOW); UR GLUCOSE (Dip) NEGATIVE (NEGATIVE); UR KETONES (Dip) NEGATIVE (NEGATIVE); UR LEUKOCYTE ESTERASE (Dip) NEGATIVE Leu/ul (NEGATIVE); UR NITRITE (Dip) NEGATIVE (NEGATIVE); UR TOTAL PROTEIN (Dip) 1+ mg/dl (NEGATIVE); UR UROBILINOGEN (Dip) NEGATIVE (NEGATIVE)
--- NOTE | 2016-11-16 13:56 | CONS ---
Date/Time of Note Date/Time of Note DATE: 11/16/16 TIME: 13:51 Assessment/Plan Assessment/Plan Chief Complaint/Hosp Course Impression: 1. 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 End-stage renal disease, his BUN is 138 and serum creatinine is 138 and 4.6 3. History of congestive heart failure 4. Hypertension 5. Gastroesophageal reflux disease 6. Insulin-dependent diabetes mellitus 7. Pancytopenia with severe thrombocytopenia 8. Diabetic retinopathy blind in left eye 9. Peripheral artery disease status post left leg below the knee amputation This patient is being admitted now to start hemodialysis. Plan: 1. Routine laboratory tests ordered 2. Resume routine medications 3. Dr. Jaqueline Carr consulted to see patient for pancytopenia and thrombocytopenia 4. Arrange for vascular catheter for hemodialysis to be placed by radiology tomorrow 5. Patient to start hemodialysis during this admission. 6. I have discussed this with the patient and his . He agrees with this plan . Problems: Consultation Date/Type/Reason Admit Date/Time Nov 15, 2016 at 17:18 Initial Consult Date 11/15/16 Type of Consultation: renal Referring Provider: MICHELLE LAGOS MD 24 HR Interval Summary Free Text/Dictation He has no complaints today . Constitutional: no complaints Exam/Review of Systems Vital Signs Vitals Vital Signs Date Time Temp Pulse Resp B/P Pulse Ox O2 Delivery O2 Flow Rate FiO2 11/16/16 08:20 97.5 64 18 133/71 100 11/16/16 02:00 Room Air Intake and Output 11/15/16 11/15/16 11/16/16 15:00 23:00 07:00 Intake Total 250 ml Output Total 600 ml Balance -350 ml Exam Constitutional: alert, oriented Respiratory: clear to auscultation, normal air movement Cardiovascular: regular rate and rhythm Gastrointestinal: non-tender, soft Musculoskeletal: other Results Result Diagram: 11/15/16201111/15/162011 Results 24 hrs Laboratory Tests Test 11/15/16 18:22 11/15/16 20:12 11/15/16 21:06 11/16/16 02:48 Bedside Glucose 180 245 H 136 White Blood Count 5.8 # Red Blood Count 3.76 L Hemoglobin 11.1 L Hematocrit 33.4 L Mean Corpuscular Volume 88.8 Mean Corpuscular Hemoglobin 29.5 Mean Corpuscular Hemoglobin Concent 33.2 Red Cell Distribution Width 15.3 H Platelet Count 55 #L Mean Platelet Volume Neutrophils % 86.0 H Lymphocytes % 11.0 L Monocytes % 3.0 Neutrophils # 5.0 Lymphocytes # 0.6 L Monocytes # 0.2 L Platelet Estimate PLT APPEAR DECREASED Large Platelets Giant Platelets Anisocytosis FEW Prothrombin Time 15.2 H Prothrombin Time Ratio 1.2 INR International Normalized Ratio 1.19 Activated Partial Thromboplast Time 31.2 Sodium Level 124 L Potassium Level 4.8 Chloride Level 99 Carbon Dioxide Level 16 L Anion Gap 14 Blood Urea Nitrogen 138 H Creatinine 4.61 H Glucose Level 242 H Hemoglobin A1c 8.5 H Calcium Level 9.0 Total Bilirubin 0.1 L Direct Bilirubin 0.00 Indirect Bilirubin 0.1 Aspartate Amino Transf (AST/SGOT) 39 Alanine Aminotransferase (ALT/SGPT) 40 Alkaline Phosphatase 213 H Total Protein 7.8 Albumin 4.4 Globulin 3.40 H Albumin/Globulin Ratio 1.29 Test 11/16/16 06:40 11/16/16 07:49 11/16/16 12:02 Urine Color YELLOW Urine Clarity CLEAR Urine pH 5.0 Urine Specific Prole 1.010 Urine Ketones NEGATIVE Urine Nitrite NEGATIVE Urine Bilirubin NEGATIVE Urine Urobilinogen NEGATIVE Urine Leukocyte Esterase NEGATIVE Urine Microscopic RBC 1 Urine Microscopic WBC 0 Urine Bacteria FEW A Urine Hemoglobin NEGATIVE Urine Glucose NEGATIVE Urine Total Protein 1+ H Bedside Glucose 98 114 Medications Medications Current Medications Folic Acid (Folic Acid) 1 mg BID PO Last administered on 11/16/16 08:25; Admin Dose 1 MG; Start 11/15/16 at 21:00 Insulin Glargine (Lantus) 25 unit BID SC Last administered on 11/16/16 07:53; Admin Dose 25 UNIT; Start 11/15/16 at 21:00 Labetalol HCl (Normodyne) 100 mg BID PO Last administered on 11/16/16 08:25; Admin Dose 100 MG; Start 11/15/16 at 21:00 Miscellaneous Information 1 ea NOTE XX ; Start 11/15/16 at 19:30 Glucose (Glutose) 15 gm Q15M PRN PO DECREASED GLUCOSE; Start 11/15/16 at 19:30 Glucose (Glutose) 22.5 gm Q15M PRN PO DECREASED GLUCOSE; Start 11/15/16 at 19: 30 Dextrose (D50w Syringe) 25 ml Q15M PRN IV DECREASED GLUCOSE; Start 11/15/16 at 19:30 Dextrose (D50w Syringe) 50 ml Q15M PRN IV DECREASED GLUCOSE; Start 11/15/16 at 19:30 Glucagon (Glucagen) 1 mg Q15M PRN IM DECREASED GLUCOSE; Start 11/15/16 at 19:30 Glucose (Glutose) 15 gm Q15M PRN BUCCAL DECREASED GLUCOSE; Start 11/15/16 at 19 :30 Diagnostic Test (Pha) (Accu-Chek) 1 ea 02 XX ; Start 11/16/16 at 02:00 Ondansetron HCl (Zofran Inj) 4 mg Q6H PRN IV NAUSEA AND/OR VOMITING; Start 04/22 at 19:30 Acetaminophen (Tylenol Tab) 650 mg Q6H PRN PO PAIN LEVEL 1-3 OR FEVER; Start at 19:30 Morphine Sulfate (morphine) 2 mg Q4H PRN IV SEVERE PAIN LEVEL 7-10 Last administered on 11/15/16 22:11; Admin Dose 2 MG; Start 11/15/16 at 19:30 Zolpidem Tartrate (Ambien) 5 mg QHS PRN PO SLEEP Last administered on 23:42; Admin Dose 5 MG; Start 11/15/16 at 19:30 Pantoprazole (Protonix Tab) 40 mg DAILY@06 PO Last administered on 11/16/16 06 :38; Admin Dose 40 MG; Start 11/16/16 at 06:00 Docusate Sodium (Colace) 100 mg BID PO Last administered on 11/16/16 08:25; Admin Dose 100 MG; Start 11/15/16 at 21:00 Polyethylene Glycol (Miralax) 17 gm DAILY PRN GTB CONSTIPATION; Start 11/15/16 at 19:30 Furosemide (Lasix) 40 mg DAILY PO Last administered on 11/16/16 08:35; Admin Dose 40 MG; Start 11/16/16 at 09:00 Prednisone (Prednisone) 5 mg DAILY PO Last administered on 11/16/16 08:35; Admin Dose 5 MG; Start 11/16/16 at 09:00 Sodium Bicarbonate (Sodium Bicarbonate Tab) 1,300 mg BID PO Last administered on 11/16/16 08:24; Admin Dose 1,300 MG; Start 11/15/16 at 21:00 Vitamin B Complex/ Vitamin C (Berocca) 1 cap DAILY PO Last administered on 11/16 08:25; Admin Dose 1 CAP; Start 11/16/16 at 09:00 Tacrolimus (Prograf) 0.5 mg Q12 PO Last administered on 11/16/16 08:25; Admin Dose 0.5 MG; Start 11/15/16 at 21:00 Clonidine (Catapres) 0.1 mg TID PO Last administered on 11/16/16 13:40; Admin Dose 0.1 MG; Start 11/16/16 at 09:00 SPRING CHAVEZ MD Nov 16, 2016 13:56
[2016-11-16 14:32] VITALS: BP 131/62; RESP 18
[2016-11-16 16:36] LABS: HAAIG REFLEX REFLEX FILED
--- NOTE | 2016-11-16 16:37 | RADRPT ---
Vent Rate: 69 bpm RR Interval: 0 msec WV Interval: 158 msec QRS Duration: 90 msec QT Interval: 442 msec QTC Interval: 473 msec P-R-T [place]: 55 - 65 - 0 degrees Sinus rhythm with premature atrial complexes ST amp; T wave abnormality, consider inferolateral ischemia Prolonged QT Abnormal ECG Electronically Signed By: Rebel Montes [id number]
[2016-11-16 17:46] LABS: HEPATITIS B CORE ANTIBODY NEGATIVE (NEGATIVE)
[2016-11-16 20:40] VITALS: BP 154/74; RESP 20
--- NOTE | 2016-11-16 22:45 | CONS ---
Date/Time of Note Date/Time of Note DATE: 11/16/16 TIME: 22:28 Assessment/Plan Assessment/Plan Chief Complaint/Hosp Course 56 yo with ESRD to receive a tunneled catheter. 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 #Thrombocytopenia -with a platelet count of 55 pt should be ok to proceed with the tunneled catheter without complication. I will given 1 unit of fresh platelet prior to the procedure in the case patient suffers from coagulopathy from uremic platelets -if patient oozes post procedure can given DDAVP but at this time pt does not appear to have a bleeding diathesis -although this is chronic, I will check the peripheral smear and LDH to ensure no evidence of TTP -check DIC panel -if platelets do not respond to transfusion and patient is bleeding, will start steroids and IVIG at that time # ESRD -to get tunneled catheter in anticipation of dialysis -management per nephrology Approximately 40 min were spent at patient;s bedside and in coordination of care Problems: Consultation Date/Type/Reason Admit Date/Time Nov 15, 2016 at 17:18 Initial Consult Date 11/15/16 Type of Consultation: hematology Reason for Consultation thrombocytopenia Referring Provider: MICHELLE LAGOS MD 24 HR Interval Summary Free Text/Dictation Mr. Riojas is a 56-year-old man w CKD from long standing DM. The patient was initially on hemodialysis until 2011 when he received a cadaveric renal transplant at [facility]. The kidney transplant is now failing due to chronic rejection. failing due to chronic rejection. The pt is also suffering from cardiomyopathy and LE edema and is currently getting diuresis. He is now being admitted for placement of a tunneled catheter. Given the chronic thrombocytopenia we have been consulted to help manage the coagulopathy for this procedure. In house patient was found to have a Platelet count of 55. There is no evidence of bleeding. Exam/Review of Systems Vital Signs Vitals Vital Signs Date Time Temp Pulse Resp B/P Pulse Ox O2 Delivery O2 Flow Rate FiO2 11/16/16 20:40 97.9 66 20 154/74 100 11/16/16 02:00 Room Air Intake and Output 11/15/16 11/15/16 11/16/16 15:00 23:00 07:00 Intake Total 250 ml Output Total 600 ml Balance -350 ml Exam Constitutional: alert, oriented Psych: nl mood/affect, no complaints Head: atraumatic, normocephalic Eyes: nl conjunctiva ENMT: nl external ears & nose Neck: non-tender, supple Respiratory: clear to auscultation, normal air movement Cardiovascular: nl pulses, regular rate and rhythm Gastrointestinal: soft Musculoskeletal: nl extremities to inspection, nl gait and stance Extremities: normal pulses Results Result Diagram: 11/15/16201111/15/162011 Results 24 hrs Laboratory Tests Test 11/16/16 02:48 11/16/16 06:40 11/16/16 07:49 11/16/16 12:02 Bedside Glucose 136 98 114 Urine Color YELLOW Urine Clarity CLEAR Urine pH 5.0 Urine Specific [place] 1.010 Urine Ketones NEGATIVE Urine Nitrite NEGATIVE Urine Bilirubin NEGATIVE Urine Urobilinogen NEGATIVE Urine Leukocyte Esterase NEGATIVE Urine Microscopic RBC 1 Urine Microscopic WBC 0 Urine Bacteria FEW A Urine Hemoglobin NEGATIVE Urine Glucose NEGATIVE Urine Total Protein 1+ H Test 11/16/16 16:10 11/16/16 17:14 11/16/16 20:37 Hepatitis B Surface Antigen NEGATIVE Hepatitis B Core Total Antibody NEGATIVE Hepatitis C Antibody NEGATIVE Bedside Glucose 180 285 H Medications Medications Current Medications Folic Acid (Folic Acid) 1 mg BID PO Last administered on 11/16/16 20:38; Admin Dose 1 MG; Start 11/15/16 at 21:00 Insulin Glargine (Lantus) 25 unit BID SC Last administered on 11/16/16 20:40; Admin Dose 25 UNIT; Start 11/15/16 at 21:00 Labetalol HCl (Normodyne) 100 mg BID PO Last administered on 11/16/16 20:39; Admin Dose 100 MG; Start 11/15/16 at 21:00 Miscellaneous Information 1 ea NOTE XX ; Start 11/15/16 at 19:30 Glucose (Glutose) 15 gm Q15M PRN PO DECREASED GLUCOSE; Start 11/15/16 at 19:30 Glucose (Glutose) 22.5 gm Q15M PRN PO DECREASED GLUCOSE; Start 11/15/16 at 19: 30 Dextrose (D50w Syringe) 25 ml Q15M PRN IV DECREASED GLUCOSE; Start 11/15/16 at 19:30 Dextrose (D50w Syringe) 50 ml Q15M PRN IV DECREASED GLUCOSE; Start 11/15/16 at 19:30 Glucagon (Glucagen) 1 mg Q15M PRN IM DECREASED GLUCOSE; Start 11/15/16 at 19:30 Glucose (Glutose) 15 gm Q15M PRN BUCCAL DECREASED GLUCOSE; Start 11/15/16 at 19 :30 Diagnostic Test (Pha) (Accu-Chek) 1 ea 02 XX ; Start 11/16/16 at 02:00 Ondansetron HCl (Zofran Inj) 4 mg Q6H PRN IV NAUSEA AND/OR VOMITING; Start 04/22 at 19:30 Acetaminophen (Tylenol Tab) 650 mg Q6H PRN PO PAIN LEVEL 1-3 OR FEVER; Start at 19:30 Morphine Sulfate (morphine) 2 mg Q4H PRN IV SEVERE PAIN LEVEL 7-10 Last administered on 11/15/16 22:11; Admin Dose 2 MG; Start 11/15/16 at 19:30 Zolpidem Tartrate (Ambien) 5 mg QHS PRN PO SLEEP Last administered on 23:42; Admin Dose 5 MG; Start 11/15/16 at 19:30 Pantoprazole (Protonix Tab) 40 mg DAILY@06 PO Last administered on 11/16/16 06 :38; Admin Dose 40 MG; Start 11/16/16 at 06:00 Docusate Sodium (Colace) 100 mg BID PO Last administered on 11/16/16 20:38; Admin Dose 100 MG; Start 11/15/16 at 21:00 Polyethylene Glycol (Miralax) 17 gm DAILY PRN GTB CONSTIPATION; Start 11/15/16 at 19:30 Furosemide (Lasix) 40 mg DAILY PO Last administered on 11/16/16 08:35; Admin Dose 40 MG; Start 11/16/16 at 09:00 Prednisone (Prednisone) 5 mg DAILY PO Last administered on 11/16/16 08:35; Admin Dose 5 MG; Start 11/16/16 at 09:00 Sodium Bicarbonate (Sodium Bicarbonate Tab) 1,300 mg BID PO Last administered on 11/16/16 20:38; Admin Dose 1,300 MG; Start 11/15/16 at 21:00 Vitamin B Complex/ Vitamin C (Berocca) 1 cap DAILY PO Last administered on 11/16 08:25; Admin Dose 1 CAP; Start 11/16/16 at 09:00 Tacrolimus (Prograf) 0.5 mg Q12 PO Last administered on 11/16/16 20:37; Admin Dose 0.5 MG; Start 11/15/16 at 21:00 Clonidine (Catapres) 0.1 mg TID PO Last administered on 11/16/16 20:38; Admin Dose 0.1 MG; Start 11/16/16 at 09:00 LAURA MODI M.D. Nov 16, 2016 22:45
[2016-11-16] MEDS: ZOLPIDEM 5 MG TAB PO PRN (23:09)
[2016-11-17] VITALS (21 sets, daily range): BP systolic 108–167; BP diastolic 59–85; PULSE 70–86; RESP 15–20
[2016-11-17] MEDS: ACCU-CHEK XX SCH (01:56)
[2016-11-17] MEDS ORDERED: DIPHENHYDRAMINE 50 MG INJ IV ONE (05:20)
[2016-11-17] MEDS: PANTOPRAZOLE (EC) 40 MG TAB PO SCH (06:00)
[2016-11-17] MEDS: INSULIN ASPART [NOVOLOG] 3 ML PEN SC SCH ×4 (08:00→20:52)
[2016-11-17] MEDS: TAMSULOSIN (SR) 0.4 MG CAP PO SCH ×2 (08:00→17:45)
[2016-11-17] MEDS: FOLIC ACID 1 MG TAB PO SCH ×2 (09:00→20:48)
[2016-11-17] MEDS: VITAMIN B COMPLEX/VIT C CAP PO SCH (09:00)
[2016-11-17] MEDS: NA BICARBONATE 650 MG TAB PO SCH ×2 (09:00→20:49)
[2016-11-17] MEDS: FUROSEMIDE 40 MG TAB PO SCH (09:00)
[2016-11-17] MEDS: DOCUSATE SODIUM 100 MG CAP PO SCH ×2 (09:00→20:48)
[2016-11-17] MEDS: predniSONE 5 MG TAB PO SCH (09:00)
[2016-11-17] MEDS: LABETALOL 100 MG TAB PO SCH ×2 (09:00→20:48)
[2016-11-17] MEDS: TACROLIMUS 0.5 MG CAP PO SCH ×2 (09:00→20:49)
[2016-11-17] MEDS: INSULIN GLARGINE [LANtus] 3 ML PEN SC SCH ×2 (09:00→20:54)
[2016-11-17 10:22] LABS: ADD SCAN DIFF NO
[2016-11-17 10:26] LABS: ABNORMAL IP MESSAGE 1; EOSINOPHILS # 0.1 10^3/ul (0.0-0.5); EOSINOPHILS % 1.3 % (0.0-7.0); HEMOGLOBIN 10.8 g/dl (14.0-18.0); LYMPHOCYTES # 1.2 10^3/ul (0.8-2.9); LYMPHOCYTES % 25.1 % (15.0-51.0); MEAN CORPUSCULAR HEMOGLOBIN 29.4 pg (29.0-33.0); MEAN CORPUSCULAR HGB CONC 32.7 g/dl (32.0-37.0); MEAN CORPUSCULAR VOLUME 89.9 fl (82.0-101.0); MONOCYTE # 0.4 10^3/ul (0.3-0.9); MONOCYTES % 7.6 % (0.0-11.0); NEUTROPHILS % 65.6 % (39.0-77.0); RED BLOOD COUNT 3.67 10^6/ul (4.70-6.10); RED CELL DISTRIBUTION WIDTH 15.3 % (11.5-14.5); WHITE BLOOD COUNT 4.6 10^3/ul (4.8-10.8)
[2016-11-17] MEDS ORDERED: LIDOCAINE 1% (MDV) 20 ML INJ ONE (10:30)
[2016-11-17] MEDS ORDERED: HEPARIN 1000 UNITS/ML 10 ML INJ ONE (10:30)
[2016-11-17 10:32] LABS: PLATELET COUNT 71 10^3/UL (140-415)
[2016-11-17] MEDS ORDERED: CEFAZOLIN 1 GM/50 ML (PMX) 50 ML IVPB ONE (11:29)
[2016-11-17] MEDS ORDERED: SOD CHLORIDE 0.9% 500 ML ONE (11:29)
[2016-11-17] MEDS ORDERED: MIDAZOLAM 1 MG/ML 2 ML INJ ONE (11:29)
[2016-11-17] MEDS ORDERED: FENTAnyl 50 MCG/ML VIAL ONE (11:29)
--- NOTE | 2016-11-17 12:37 | RADRPT ---
PROCEDURE: PLACEMENT OF RIGHT INTERNAL JUGULAR VENOUS TUNNELED DIALYSIS CATHETER. CLINICAL INDICATION: Renal failure. TECHNIQUE: Prior to the procedure, informed consent was obtained. Risks including bleeding, infection, and pneu mothorax were explained to the patient. The patient understood and was willing to proceed. A procedu ral pause was performed. The patient's name, date of , and procedure to be performed were verif ied. The central line was inserted with all elements of maximal sterile barrier technique. All of th e following were used: head covering, facial mask, sterile gown, sterile gloves, a large sterile she et, hand hygiene, and 2% chlorhexidine for cutaneous antisepsis. The right neck and anterior/super ior chest wall was prepped and draped in usual sterile fashion. Limited sonography of the right neck was then performed. Noted is a patent right internal jugular ve in. Ultrasound images were recorded and stored in the patient's medical record. Following the local injection of Xylocaine, the right internal jugular vein was punctured under sono graphic guidance with a 20-gauge needle through which a 0.018 inch floppy tip guidewire was advanced into the superior vena cava. The tract was dilated to 5 Grenadian and the wire was then replaced with a 0.035 in Amplatz guidewire. A tunnel was then created from the anterior lateral aspect of the sup erior right chest wall to the puncture site in the neck and the catheter was pulled through the trac t. Serial dilatation was then performed and a 16 Grenadian peel away sheath was introduced. The 14.5 Grenadian 23cm tip to cuff Angiodynamics BioFlo DuraMax dialysis catheter was advanced through the 16 F rench peel-away sheath. The tip of the catheter was confirmed in position within the right atrium. T he peel-away sheath was removed. The 2 ports were each flushed with 2.3 ml of 1:1000 heparin. The c atheter was secured to the skin with 2-0 silk. The wound in the neck was closed with 4-0 Vicryl suture using subcuticular running technique. The site was dressed. The patient tolerated the proce dure well. COMPARISON: None. FINDINGS: Final radiographic images demonstrate the tip of the catheter in the upper right atrium. A total of 0.8 minutes of fluoroscopy time was used. The ultrasound images demonstrate the needle entering e jugular vein. Ultrasound images were recorded and stored in the patient's medical record. 10 kristy ges of the chest were obtained with image intensifier. IMPRESSION: 1. Percutaneous insertion of right internal jugular dialysis tunneled dialysis catheter under fluoro scopic and sonographic guidance. RPTAT: QQ .Carroll Gaines MD, MD Date Time Electronically viewed and signed by .Carroll Gaines MD, on 11/17/2016 12:37 .R/
--- NOTE | 2016-11-17 12:53 | RADRPT ---
PROCEDURE: Ultrasound guidance for placement of needle in left internal jugular vein. CLINICAL INDICATION: Venous access. TECHNIQUE: Prior to the procedure, informed consent was obtained. Risks including bleeding, infection, and pneu mothorax were explained to the patient. The patient understood and was willing to proceed. A procedu ral pause was performed. The patient's name, date of , and procedure to be performed were verif ied. The central line was inserted with all elements of maximal sterile barrier technique. All of th e following were used: head covering, facial mask, sterile gown, sterile gloves, a large sterile she et, hand hygiene, and 2% chlorhexidine for cutaneous antisepsis. The left neck and anterior/superi or chest wall was prepped and draped in usual sterile fashion. Limited sonography of the left neck was then performed. Noted is a patent left internal jugular vein . Ultrasound images were recorded and stored in the patient's medical record. Following the local injection of Xylocaine, the left internal jugular vein was punctured under sonog raphic guidance with a 20-gauge needle through which a 0.018 inch floppy tip guidewire was advanced into the superior vena cava. The patient tolerated the procedure well. The remainder of the proced ure was performed and dictated under separate cover. COMPARISON: None. FINDINGS: The ultrasound images demonstrate a patent left internal jugular vein. The subsequent images demons trate the needle entering the left internal jugular vein. IMPRESSION: 1. Ultrasound guidance for a needle placement in left internal jugular vein. RPTAT: QQ .Carroll Gaines MD, Date Time Electronically viewed and signed by .Carroll Gaines MD, on 11/17/2016 12:52 .R/
--- NOTE | 2016-11-17 14:28 | CONS ---
Date/Time of Note Date/Time of Note DATE: 11/17/16 TIME: 14:20 Assessment/Plan Assessment/Plan Chief Complaint/Hosp Course Impression: 1. 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 End-stage renal disease, his BUN is 138 and serum creatinine is 138 and 4.6 3. History of congestive heart failure 4. Hypertension 5. Gastroesophageal reflux disease 6. Insulin-dependent diabetes mellitus 7. Pancytopenia with severe thrombocytopenia 8. Diabetic retinopathy blind in left eye 9. Peripheral artery disease status post left leg below the knee amputation 10. L IJ permacath placed by radiology today Plan: 1. Hemodialysis ordered for today and will start at around 2:30 today 2. His next dialysis in 2 days 3. arrange for outpatient hemodialysis Problems: Consultation Date/Type/Reason Admit Date/Time Nov 15, 2016 at 17:18 Initial Consult Date 11/15/16 Type of Consultation: hematology Referring Provider: MICHELLE LAGOS MD 24 HR Interval Summary Free Text/Dictation the patient is now post op a L IJ tunneled permacath for hemodialysis . He is awake and alert . Constitutional: improved, no complaints Exam/Review of Systems Vital Signs Vitals Vital Signs Date Time Temp Pulse Resp B/P Pulse Ox O2 Delivery O2 Flow Rate FiO2 11/17/16 12:15 71 20 123/69 100 Room Air 11/17/16 12:00 2.0 11/17/16 11:35 98.2 Intake and Output 11/16/16 11/16/16 11/17/16 14:59 22:59 06:59 Intake Total 800 ml 480 ml Output Total 750 ml 750 ml Balance 50 ml -270 ml Exam he is S/P a L BKA . Constitutional: alert, oriented Psych: no complaints Respiratory: clear to auscultation, normal air movement Cardiovascular: regular rate and rhythm Results Result Diagram: 11/17/16 0940 11/15/162011 Results 24 hrs Laboratory Tests Test 11/16/16 16:10 11/16/16 17:14 11/16/16 20:37 11/17/16 01:55 Hepatitis B Surface Antigen NEGATIVE Hepatitis B Core Total Antibody NEGATIVE Hepatitis C Antibody NEGATIVE Bedside Glucose 180 285 H 270 H Test 11/17/16 08:11 11/17/16 09:40 11/17/16 10:06 11/17/16 10:26 Bedside Glucose 97 47 *L 194 White Blood Count 4.6 #L Red Blood Count 3.67 L Hemoglobin 10.8 L Hematocrit 33.0 L Mean Corpuscular Volume 89.9 Mean Corpuscular Hemoglobin 29.4 Mean Corpuscular Hemoglobin Concent 32.7 Red Cell Distribution Width 15.3 H Platelet Count 71 #L Mean Platelet Volume Neutrophils % 65.6 Lymphocytes % 25.1 Monocytes % 7.6 Eosinophils % 1.3 Basophils % 0.0 Nucleated Red Blood Cells % 0.0 Neutrophils # 3.0 Lymphocytes # 1.2 Monocytes # 0.4 Eosinophils # 0.1 Basophils # 0.0 Nucleated Red Blood Cells # 0.0 Test 11/17/16 13:09 11/17/16 13:55 Bedside Glucose 55 L 95 Medications Medications Current Medications Folic Acid (Folic Acid) 1 mg BID PO Last administered on 11/16/16 20:38; Admin Dose 1 MG; Start 11/15/16 at 21:00 Insulin Glargine (Lantus) 25 unit BID SC Last administered on 11/16/16 20:40; Admin Dose 25 UNIT; Start 11/15/16 at 21:00 Labetalol HCl (Normodyne) 100 mg BID PO Last administered on 11/16/16 20:39; Admin Dose 100 MG; Start 11/15/16 at 21:00 Miscellaneous Information 1 ea NOTE XX ; Start 11/15/16 at 19:30 Glucose (Glutose) 15 gm Q15M PRN PO DECREASED GLUCOSE; Start 11/15/16 at 19:30 Glucose (Glutose) 22.5 gm Q15M PRN PO DECREASED GLUCOSE; Start 11/15/16 at 19: 30 Dextrose (D50w Syringe) 25 ml Q15M PRN IV DECREASED GLUCOSE; Start 11/15/16 at 19:30 Dextrose (D50w Syringe) 50 ml Q15M PRN IV DECREASED GLUCOSE Last administered on 11/17/16 10:08; Admin Dose 50 ML; Start 11/15/16 at 19:30 Glucagon (Glucagen) 1 mg Q15M PRN IM DECREASED GLUCOSE; Start 11/15/16 at 19:30 Glucose (Glutose) 15 gm Q15M PRN BUCCAL DECREASED GLUCOSE; Start 11/15/16 at 19 :30 Diagnostic Test (Pha) (Accu-Chek) 1 ea 02 XX Last administered on 11/17/16 01: 56; Admin Dose 1 EA; Start 11/16/16 at 02:00 Ondansetron HCl (Zofran Inj) 4 mg Q6H PRN IV NAUSEA AND/OR VOMITING; Start 04/22 at 19:30 Acetaminophen (Tylenol Tab) 650 mg Q6H PRN PO PAIN LEVEL 1-3 OR FEVER; Start at 19:30 Morphine Sulfate (morphine) 2 mg Q4H PRN IV SEVERE PAIN LEVEL 7-10 Last administered on 11/15/16 22:11; Admin Dose 2 MG; Start 11/15/16 at 19:30 Zolpidem Tartrate (Ambien) 5 mg QHS PRN PO SLEEP Last administered on 23:09; Admin Dose 5 MG; Start 11/15/16 at 19:30 Pantoprazole (Protonix Tab) 40 mg DAILY@06 PO Last administered on 11/16/16 06 :38; Admin Dose 40 MG; Start 11/16/16 at 06:00 Docusate Sodium (Colace) 100 mg BID PO Last administered on 11/16/16 20:38; Admin Dose 100 MG; Start 11/15/16 at 21:00 Polyethylene Glycol (Miralax) 17 gm DAILY PRN GTB CONSTIPATION; Start 11/15/16 at 19:30 Furosemide (Lasix) 40 mg DAILY PO Last administered on 11/16/16 08:35; Admin Dose 40 MG; Start 11/16/16 at 09:00 Prednisone (Prednisone) 5 mg DAILY PO Last administered on 11/16/16 08:35; Admin Dose 5 MG; Start 11/16/16 at 09:00 Sodium Bicarbonate (Sodium Bicarbonate Tab) 1,300 mg BID PO Last administered on 11/16/16 20:38; Admin Dose 1,300 MG; Start 11/15/16 at 21:00 Vitamin B Complex/ Vitamin C (Berocca) 1 cap DAILY PO Last administered on 11/16 08:25; Admin Dose 1 CAP; Start 11/16/16 at 09:00 Tacrolimus (Prograf) 0.5 mg Q12 PO Last administered on 11/16/16 20:37; Admin Dose 0.5 MG; Start 11/15/16 at 21:00 Clonidine (Catapres) 0.1 mg TID PO Last administered on 11/16/16t 20:38; Admin Dose 0.1 MG; Start 11/16/16 at 09:00 SPRING CHAVEZ MD Nov 17, 2016 14:28
--- NOTE | 2016-11-17 16:12 | CONS ---
Date/Time of Note Date/Time of Note DATE: 11/17/16 TIME: 16:08 Assessment/Plan Assessment/Plan Chief Complaint/Hosp Course 56 yo with ESRD to receive a tunneled catheter. 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 #Thrombocytopenia - with a platelet count of 55 pt should be ok to proceed with the tunneled catheter without complication, however given 1 unit of fresh platelet prior to the procedure in the case patient suffers from coagulopathy from uremic platelets. Now platelets 71K. - if patient oozes post procedure can given DDAVP but at this time pt does not appear to have a bleeding diathesis - although this is chronic, I will check an LDH and haptoglobin to ensure no evidence of TTP - check DIC panel with a.m. labs but normal coags makes less likely - if platelets do not respond to transfusion and patient is bleeding, will start steroids and IVIG at that time # ESRD - to get tunneled catheter in anticipation of dialysis - management per nephrology Problems: Consultation Date/Type/Reason Admit Date/Time Nov 15, 2016 at 17:18 Initial Consult Date 11/15/16 Type of Consultation: Hematology Referring Provider: MICHELLE LAGOS MD 24 HR Interval Summary Free Text/Dictation Patient doing well, no bleeding. Exam/Review of Systems Vital Signs Vitals Vital Signs Date Time Temp Pulse Resp B/P Pulse Ox O2 Delivery O2 Flow Rate FiO2 11/17/16 15:50 78 11/17/16 14:50 16 11/17/16 14:00 97.5 108/59 99 11/17/16 12:15 Room Air 11/17/16 12:00 2.0 Intake and Output 11/16/16 11/16/16 11/17/16 15:00 23:00 07:00 Intake Total 800 ml 480 ml Output Total 750 ml 750 ml Balance 50 ml -270 ml Exam Constitutional: alert, oriented Psych: nl mood/affect, no complaints Head: atraumatic, normocephalic Eyes: nl conjunctiva ENMT: nl external ears & nose Neck: non-tender, supple Respiratory: clear to auscultation, normal air movement Cardiovascular: nl pulses, regular rate and rhythm Gastrointestinal: soft Musculoskeletal: nl extremities to inspection, nl gait and stance Extremities: normal pulses Results Result Diagram: 11/17/16 0940 11/15/162011 Results 24 hrs Laboratory Tests Test 11/16/16 16:10 11/16/16 17:14 11/16/16 20:37 11/17/16 01:55 Hepatitis B Surface Antigen NEGATIVE Hepatitis B Core Total Antibody NEGATIVE Hepatitis C Antibody NEGATIVE Bedside Glucose 180 285 H 270 H Test 11/17/16 08:11 11/17/16 09:40 11/17/16 10:06 11/17/16 10:26 Bedside Glucose 97 47 *L 194 White Blood Count 4.6 #L Red Blood Count 3.67 L Hemoglobin 10.8 L Hematocrit 33.0 L Mean Corpuscular Volume 89.9 Mean Corpuscular Hemoglobin 29.4 Mean Corpuscular Hemoglobin Concent 32.7 Red Cell Distribution Width 15.3 H Platelet Count 71 #L Mean Platelet Volume Neutrophils % 65.6 Lymphocytes % 25.1 Monocytes % 7.6 Eosinophils % 1.3 Basophils % 0.0 Nucleated Red Blood Cells % 0.0 Neutrophils # 3.0 Lymphocytes # 1.2 Monocytes # 0.4 Eosinophils # 0.1 Basophils # 0.0 Nucleated Red Blood Cells # 0.0 Test 11/17/16 13:09 11/17/16 13:55 11/17/16 14:25 Bedside Glucose 55 L 95 202 Medications Medications Current Medications Folic Acid (Folic Acid) 1 mg BID PO Last administered on 11/16/16 20:38; Admin Dose 1 MG; Start 11/15/16 at 21:00 Insulin Glargine (Lantus) 25 unit BID SC Last administered on 11/16/16 20:40; Admin Dose 25 UNIT; Start 11/15/16 at 21:00 Labetalol HCl (Normodyne) 100 mg BID PO Last administered on 11/16/16 20:39; Admin Dose 100 MG; Start 11/15/16 at 21:00 Miscellaneous Information 1 ea NOTE XX ; Start 11/15/16 at 19:30 Glucose (Glutose) 15 gm Q15M PRN PO DECREASED GLUCOSE; Start 11/15/16 at 19:30 Glucose (Glutose) 22.5 gm Q15M PRN PO DECREASED GLUCOSE; Start 11/15/16 at 19: 30 Dextrose (D50w Syringe) 25 ml Q15M PRN IV DECREASED GLUCOSE; Start 11/15/16 at 19:30 Dextrose (D50w Syringe) 50 ml Q15M PRN IV DECREASED GLUCOSE Last administered on 11/17/16 10:08; Admin Dose 50 ML; Start 11/15/16 at 19:30 Glucagon (Glucagen) 1 mg Q15M PRN IM DECREASED GLUCOSE; Start 11/15/16 at 19:30 Glucose (Glutose) 15 gm Q15M PRN BUCCAL DECREASED GLUCOSE; Start 11/15/16 at 19 :30 Diagnostic Test (Pha) (Accu-Chek) 1 ea 02 XX Last administered on 11/17/16 01: 56; Admin Dose 1 EA; Start 11/16/16 at 02:00 Ondansetron HCl (Zofran Inj) 4 mg Q6H PRN IV NAUSEA AND/OR VOMITING; Start 04/22 at 19:30 Acetaminophen (Tylenol Tab) 650 mg Q6H PRN PO PAIN LEVEL 1-3 OR FEVER; Start at 19:30 Morphine Sulfate (morphine) 2 mg Q4H PRN IV SEVERE PAIN LEVEL 7-10 Last administered on 11/15/16 22:11; Admin Dose 2 MG; Start 11/15/16 at 19:30 Zolpidem Tartrate (Ambien) 5 mg QHS PRN PO SLEEP Last administered on 23:09; Admin Dose 5 MG; Start 11/15/16 at 19:30 Pantoprazole (Protonix Tab) 40 mg DAILY@06 PO Last administered on 11/16/16 06 :38; Admin Dose 40 MG; Start 11/16/16 at 06:00 Docusate Sodium (Colace) 100 mg BID PO Last administered on 11/16/16 20:38; Admin Dose 100 MG; Start 11/15/16 at 21:00 Polyethylene Glycol (Miralax) 17 gm DAILY PRN GTB CONSTIPATION; Start 11/15/16 at 19:30 Furosemide (Lasix) 40 mg DAILY PO Last administered on 11/16/16 08:35; Admin Dose 40 MG; Start 11/16/16 at 09:00 Prednisone (Prednisone) 5 mg DAILY PO Last administered on 11/16/16 08:35; Admin Dose 5 MG; Start 11/16/16 at 09:00 Sodium Bicarbonate (Sodium Bicarbonate Tab) 1,300 mg BID PO Last administered on 11/16/16 20:38; Admin Dose 1,300 MG; Start 11/15/16 at 21:00 Vitamin B Complex/ Vitamin C (Berocca) 1 cap DAILY PO Last administered on 11/16 08:25; Admin Dose 1 CAP; Start 11/16/16 at 09:00 Tacrolimus (Prograf) 0.5 mg Q12 PO Last administered on 11/16/16 20:37; Admin Dose 0.5 MG; Start 11/15/16 at 21:00 Clonidine (Catapres) 0.1 mg TID PO Last administered on 11/16/16 20:38; Admin Dose 0.1 MG; Start 11/16/16 at 09:00 TOANDREA MD Nov 17, 2016 16:12
--- NOTE | 2016-11-17 18:15 | PN ---
Date/Time of Note Date/Time of Note DATE: 11/17/16 TIME: 18:12 Assessment/Plan VTE Prophylaxis VTE Prophylaxis Intervention: SCD's Lines/Catheters IV [facility]ter [facility]from [facility] Saline Lock Assessment/Plan Chief Complaint/Hosp Course Patient is undergoing hemodialysis via a left subclavian Missael catheter, patient denies any pain, hemodynamically stable. Assessment/Plan -End-stage renal disease. Dr. Torres is following a nephrology consultation. Continue hemodialysis -Failed renal transplant -Diabetes mellitus, continue Lantus and NovoLog. -Hypertension, kidney labetalol. 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 Dr. Carr is following patient in hematology consultation. Further recommendations based on clinical course. Plan of care discussed with Dr. Maloney. Problems: Exam/Review of Systems Vital Signs Vitals Vital Signs Date Time Temp Pulse Resp B/P Pulse Ox O2 Delivery O2 Flow Rate FiO2 11/17/16 17:50 82 11/17/16 17:50 16 11/17/16 14:00 97.5 108/59 99 11/17/16 12:15 Room Air 11/17/16 12:00 2.0 Intake and Output 11/16/16 11/16/16 11/17/16 15:00 23:00 07:00 Intake Total 800 ml 480 ml Output Total 750 ml 750 ml Balance 50 ml -270 ml Exam Constitutional: alert, oriented Head: atraumatic, normocephalic Eyes: other (left eye blind) Neck: supple Respiratory: normal air movement Cardiovascular: nl pulses Gastrointestinal: non-tender, soft Extremities: normal pulses, other (L BKA) Neurological: nl mental status Skin: nl turgor, other (RLE multiple abrasions) Left subclavian Missael catheter Results Result Diagram: 11/17/16 0940 11/15/162011 Results 24 hrs Laboratory Tests Test 11/16/16 20:37 11/17/16 01:55 11/17/16 08:11 11/17/16 09:40 Bedside Glucose 285 H 270 H 97 White Blood Count 4.6 #L Red Blood Count 3.67 L Hemoglobin 10.8 L Hematocrit 33.0 L Mean Corpuscular Volume 89.9 Mean Corpuscular Hemoglobin 29.4 Mean Corpuscular Hemoglobin Concent 32.7 Red Cell Distribution Width 15.3 H Platelet Count 71 #L Mean Platelet Volume Neutrophils % 65.6 Lymphocytes % 25.1 Monocytes % 7.6 Eosinophils % 1.3 Basophils % 0.0 Nucleated Red Blood Cells % 0.0 Neutrophils # 3.0 Lymphocytes # 1.2 Monocytes # 0.4 Eosinophils # 0.1 Basophils # 0.0 Nucleated Red Blood Cells # 0.0 Test 11/17/16 10:06 11/17/16 10:26 11/17/16 13:09 11/17/16 13:55 Bedside Glucose 47 *L 194 55 L 95 Test 11/17/16 14:25 11/17/16 17:46 Bedside Glucose 202 212 Medications Medications Current Medications Folic Acid (Folic Acid) 1 mg BID PO Last administered on 11/16/16 20:38; Admin Dose 1 MG; Start 11/15/16 at 21:00 Insulin Glargine (Lantus) 25 unit BID SC Last administered on 11/16/16 20:40; Admin Dose 25 UNIT; Start 11/15/16 at 21:00 Labetalol HCl (Normodyne) 100 mg BID PO Last administered on 11/16/16 20:39; Admin Dose 100 MG; Start 11/15/16 at 21:00 Miscellaneous Information 1 ea NOTE XX ; Start 11/15/16 at 19:30 Glucose (Glutose) 15 gm Q15M PRN PO DECREASED GLUCOSE; Start 11/15/16 at 19:30 Glucose (Glutose) 22.5 gm Q15M PRN PO DECREASED GLUCOSE; Start 11/15/16 at 19: 30 Dextrose (D50w Syringe) 25 ml Q15M PRN IV DECREASED GLUCOSE; Start 11/15/16 at 19:30 Dextrose (D50w Syringe) 50 ml Q15M PRN IV DECREASED GLUCOSE Last administered on 11/17/16 10:08; Admin Dose 50 ML; Start 11/15/16 at 19:30 Glucagon (Glucagen) 1 mg Q15M PRN IM DECREASED GLUCOSE; Start 11/15/16 at 19:30 Glucose (Glutose) 15 gm Q15M PRN BUCCAL DECREASED GLUCOSE; Start 11/15/16 at 19 :30 Diagnostic Test (Pha) (Accu-Chek) 1 ea 02 XX Last administered on 11/17/16 01: 56; Admin Dose 1 EA; Start 11/16/16 at 02:00 Ondansetron HCl (Zofran Inj) 4 mg Q6H PRN IV NAUSEA AND/OR VOMITING; Start 04/22 at 19:30 Acetaminophen (Tylenol Tab) 650 mg Q6H PRN PO PAIN LEVEL 1-3 OR FEVER; Start at 19:30 Morphine Sulfate (morphine) 2 mg Q4H PRN IV SEVERE PAIN LEVEL 7-10 Last administered on 11/15/16 22:11; Admin Dose 2 MG; Start 11/15/16 at 19:30 Zolpidem Tartrate (Ambien) 5 mg QHS PRN PO SLEEP Last administered on 23:09; Admin Dose 5 MG; Start 11/15/16 at 19:30 Pantoprazole (Protonix Tab) 40 mg DAILY@06 PO Last administered on 11/16/16 06 :38; Admin Dose 40 MG; Start 11/16/16 at 06:00 Docusate Sodium (Colace) 100 mg BID PO Last administered on 11/16/16 20:38; Admin Dose 100 MG; Start 11/15/16 at 21:00 Polyethylene Glycol (Miralax) 17 gm DAILY PRN GTB CONSTIPATION; Start 11/15/16 at 19:30 Furosemide (Lasix) 40 mg DAILY PO Last administered on 11/16/16 08:35; Admin Dose 40 MG; Start 11/16/16 at 09:00 Prednisone (Prednisone) 5 mg DAILY PO Last administered on 11/16/16 08:35; Admin Dose 5 MG; Start 11/16/16 at 09:00 Sodium Bicarbonate (Sodium Bicarbonate Tab) 1,300 mg BID PO Last administered on 11/16/16 20:38; Admin Dose 1,300 MG; Start 11/15/16 at 21:00 Vitamin B Complex/ Vitamin C (Berocca) 1 cap DAILY PO Last administered on 11/16 08:25; Admin Dose 1 CAP; Start 11/16/16 at 09:00 Tacrolimus (Prograf) 0.5 mg Q12 PO Last administered on 11/16/16 20:37; Admin Dose 0.5 MG; Start 11/15/16 at 21:00 Clonidine (Catapres) 0.1 mg TID PO Last administered on 11/16/16t 20:38; Admin Dose 0.1 MG; Start 11/16/16 at 09:00 NEHEMIAH SALEH Nov 17, 2016 18:15
[2016-11-17] MEDS: morphine 2 MG INJ IV PRN (21:04)
[2016-11-17] MEDS: ZOLPIDEM 5 MG TAB PO PRN (23:33)
[2016-11-18 02:00] VITALS: BP 108/54; RESP 20
[2016-11-18] MEDS: ACCU-CHEK XX SCH (03:00)
[2016-11-18] MEDS: PANTOPRAZOLE (EC) 40 MG TAB PO SCH (06:27)
[2016-11-18 07:33] LABS: ADD SCAN DIFF NO
[2016-11-18 07:39] LABS: PLATELET COUNT 84 10^3/UL (140-415)
[2016-11-18 07:54] LABS: INR 1.16; PROTIME 14.9 Sec (12.2-14.2); PT RATIO 1.2
[2016-11-18 07:55] LABS: PARTIAL THROMBOPLASTIN TIME 32.4 Sec (25.0-35.0)
[2016-11-18 07:56] LABS: THROMBIN TIME 17.3 SEC (13.8-19.1)
[2016-11-18 07:58] LABS: FIBRIN SPLIT PRODUCT <10 ug/ml (<10)
[2016-11-18] MEDS: INSULIN ASPART [NOVOLOG] 3 ML PEN SC SCH ×4 (08:00→20:37)
[2016-11-18 08:01] LABS: D-DIMER 1311.49 ng/ml (<460)
[2016-11-18 08:07] LABS: ALBUMIN/GLOBULIN RATIO 1.37; BILIRUBIN,INDIRECT 0.2 mg/dl (0-1.1); BILIRUBIN,TOTAL 0.2 mg/dl (0.2-1.3); CALCIUM 8.3 mg/dl (8.4-10.2); CREATININE 2.62 mg/dl (0.61-1.24); TOTAL PROTEIN 6.9 g/dl (6.1-8.1)
[2016-11-18] MEDS: LABETALOL 100 MG TAB PO SCH ×2 (09:00→20:34)
[2016-11-18] MEDS: FUROSEMIDE 40 MG TAB PO SCH (09:00)
[2016-11-18] MEDS: DOCUSATE SODIUM 100 MG CAP PO SCH ×2 (09:00→20:33)
[2016-11-18] MEDS ORDERED: INSULIN GLARGINE [LANtus] 3 ML PEN SC SCH (09:00)
[2016-11-18 09:09] LABS: ABNORMAL IP MESSAGE 1; HEMATOCRIT 30.8 % (42.0-52.0); HEMOGLOBIN 10.2 g/dl (14.0-18.0); MEAN CORPUSCULAR HEMOGLOBIN 30.2 pg (29.0-33.0); MEAN CORPUSCULAR HGB CONC 33.1 g/dl (32.0-37.0); MEAN CORPUSCULAR VOLUME 91.1 fl (82.0-101.0); RED BLOOD COUNT 3.38 10^6/ul (4.70-6.10); RED CELL DISTRIBUTION WIDTH 15.5 % (11.5-14.5); WHITE BLOOD COUNT 4.1 10^3/ul (4.8-10.8)
[2016-11-18] MEDS: VITAMIN B COMPLEX/VIT C CAP PO SCH (09:11)
[2016-11-18] MEDS: TAMSULOSIN (SR) 0.4 MG CAP PO SCH ×2 (09:11→17:32)
[2016-11-18] MEDS: FOLIC ACID 1 MG TAB PO SCH ×2 (09:12→20:33)
[2016-11-18] MEDS: TACROLIMUS 0.5 MG CAP PO SCH ×2 (09:12→20:34)
[2016-11-18] MEDS: predniSONE 5 MG TAB PO SCH (09:12)
[2016-11-18 09:18] LABS: PLATELET COUNT 84 10^3/UL (140-415)
[2016-11-18] MEDS: NA BICARBONATE 650 MG TAB PO SCH ×2 (09:18→20:34)
[2016-11-18 11:01] LABS: LYMPHOCYTES # 1.1 10^3/ul (0.8-2.9); MONOCYTE # 0.4 10^3/ul (0.3-0.9); NEUTROPHIL # 2.6 10^3/ul (1.6-7.5)
[2016-11-18 11:02] LABS: POIKILOCYTOSIS 1+
[2016-11-18 11:03] LABS: OVALOCYTES FEW; PLATELET ESTIMATE PLT APPEAR DECREASED; TARGET CELLS OCCASIONAL
--- NOTE | 2016-11-18 14:36 | CONS ---
Date/Time of Note Date/Time of Note DATE: 11/18/16 TIME: 14:31 Assessment/Plan Assessment/Plan Additional Assessment/Plan 1. 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 hd again in am 2. End-stage renal disease: s/p tunelled catheter. started hd yesterday and scheduled in am. arrangmenets in progress for outpatient hd 3. History of congestive heart failure: compensated 4. Hypertension: on meds and stable 5. Gastroesophageal reflux disease: ppi prn 6. Insulin-dependent diabetes mellitus: on meds and stable 7. Pancytopenia with severe thrombocytopenia: monitor labs: improving 8. Diabetic retinopathy blind in left eye 9. Peripheral artery disease status post left leg below the knee amputation Consultation Date/Type/Reason Admit Date/Time Nov 15, 2016 at 17:18 Initial Consult Date 11/15/16 Type of Consultation: Hematology Reason for Consultation doing well. tolerated hd yesterday uneventfully. no complaints. at bedside Referring Provider: MICHELLE LAGOS MD Exam/Review of Systems Vital Signs Vitals Vital Signs Date Time Temp Pulse Resp B/P Pulse Ox O2 Delivery O2 Flow Rate FiO2 11/18/16 02:00 98.6 73 20 108/54 99 11/17/16 12:15 Room Air 11/17/16 12:00 2.0 Intake and Output 11/17/16 11/17/16 11/18/16 15:00 23:00 07:00 Intake Total 200 ml 920 ml Output Total 1800 ml Balance 200 ml -880 ml Exam Constitutional: oriented, well developed Psych: no complaints Head: normocephalic Neck: non-tender, supple Respiratory: clear to auscultation Cardiovascular: edema, nl pulses, regular rate and rhythm Gastrointestinal: non-tender, soft Results Result Diagram: 11/18/16 0719 11/18/16 0719 Results 24 hrs Laboratory Tests Test 11/17/16 17:46 11/17/16 20:40 11/18/16 03:10 11/18/16 03:34 Bedside Glucose 212 300 H 66 L 69 L Test 11/18/16 04:04 11/18/16 05:55 11/18/16 07:19 11/18/16 07:48 Bedside Glucose 86 47 *L Lab Scanned Report BLOOD TRANSFUSION White Blood Count 4.1 L Red Blood Count 3.38 L Hemoglobin 10.2 L Hematocrit 30.8 L Mean Corpuscular Volume 91.1 Mean Corpuscular Hemoglobin 30.2 Mean Corpuscular Hemoglobin Concent 33.1 Red Cell Distribution Width 15.5 H Platelet Count 84 L Mean Platelet Volume Neutrophils % 63.0 Lymphocytes % 27.0 Monocytes % 9.0 Eosinophils % 1.0 Neutrophils # 2.6 Lymphocytes # 1.1 Monocytes # 0.4 Eosinophils # 0.0 Platelet Estimate PLT APPEAR DECREASED Poikilocytosis 1+ Target Cells OCCASIONAL Ovalocytes FEW Prothrombin Time 14.9 H Prothrombin Time Ratio 1.2 INR International Normalized Ratio 1.16 Activated Partial Thromboplast Time 32.4 Thrombin Time 17.3 Fibrinogen 352.0 Plasma Fibrin Degradation Products <10 D-Dimer 1311.49 H D-Dimer Comment Sodium Level 142 Potassium Level 4.0 Chloride Level 100 Carbon Dioxide Level 27 Anion Gap 19 H Blood Urea Nitrogen 65 H Creatinine 2.62 H Glucose Level 56 L Calcium Level 8.3 L Total Bilirubin 0.2 Direct Bilirubin 0.00 Indirect Bilirubin 0.2 Aspartate Amino Transf (AST/SGOT) 45 Alanine Aminotransferase (ALT/SGPT) 41 Alkaline Phosphatase 188 H Lactate Dehydrogenase 796 H Total Protein 6.9 Albumin 4.0 Globulin 2.90 Albumin/Globulin Ratio 1.37 Test 11/18/16 08:04 11/18/16 08:20 11/18/16 08:48 11/18/16 11:41 Bedside Glucose 71 104 172 127 Medications Medications Current Medications Folic Acid (Folic Acid) 1 mg BID PO Last administered on 11/18/16 09:12; Admin Dose 1 MG; Start 11/15/16 at 21:00 Labetalol HCl (Normodyne) 100 mg BID PO Last administered on 11/17/16 20:48; Admin Dose 100 MG; Start 11/15/16 at 21:00 Miscellaneous Information 1 ea NOTE XX ; Start 11/15/16 at 19:30 Glucose (Glutose) 15 gm Q15M PRN PO DECREASED GLUCOSE; Start 11/15/16 at 19:30 Glucose (Glutose) 22.5 gm Q15M PRN PO DECREASED GLUCOSE; Start 11/15/16 at 19: 30 Dextrose (D50w Syringe) 25 ml Q15M PRN IV DECREASED GLUCOSE; Start 11/15/16 at 19:30 Dextrose (D50w Syringe) 50 ml Q15M PRN IV DECREASED GLUCOSE Last administered on 11/17/16 10:08; Admin Dose 50 ML; Start 11/15/16 at 19:30 Glucagon (Glucagen) 1 mg Q15M PRN IM DECREASED GLUCOSE; Start 11/15/16 at 19:30 Glucose (Glutose) 15 gm Q15M PRN BUCCAL DECREASED GLUCOSE; Start 11/15/16 at 19 :30 Diagnostic Test (Pha) (Accu-Chek) 1 ea 02 XX Last administered on 11/18/16 03: 00; Admin Dose 1 EA; Start 11/16/16 at 02:00 Ondansetron HCl (Zofran Inj) 4 mg Q6H PRN IV NAUSEA AND/OR VOMITING; Start 04/22 at 19:30 Acetaminophen (Tylenol Tab) 650 mg Q6H PRN PO PAIN LEVEL 1-3 OR FEVER Last administered on 11/18/16 00:13; Admin Dose 650 MG; Start 11/15/16 at 19:30 Morphine Sulfate (morphine) 2 mg Q4H PRN IV SEVERE PAIN LEVEL 7-10 Last administered on 11/17/16 21:04; Admin Dose 2 MG; Start 11/15/16 at 19:30 Zolpidem Tartrate (Ambien) 5 mg QHS PRN PO SLEEP Last administered on 23:33; Admin Dose 5 MG; Start 11/15/16 at 19:30 Pantoprazole (Protonix Tab) 40 mg DAILY@06 PO Last administered on 11/18/16 06 :27; Admin Dose 40 MG; Start 11/16/16 at 06:00 Docusate Sodium (Colace) 100 mg BID PO Last administered on 11/17/16 20:48; Admin Dose 100 MG; Start 11/15/16 at 21:00 Polyethylene Glycol (Miralax) 17 gm DAILY PRN GTB CONSTIPATION; Start 11/15/16 at 19:30 Furosemide (Lasix) 40 mg DAILY PO Last administered on 11/16/16 08:35; Admin Dose 40 MG; Start 11/16/16 at 09:00 Prednisone (Prednisone) 5 mg DAILY PO Last administered on 11/18/16 09:12; Admin Dose 5 MG; Start 11/16/16 at 09:00 Sodium Bicarbonate (Sodium Bicarbonate Tab) 1,300 mg BID PO Last administered on 11/18/16 09:18; Admin Dose 1,300 MG; Start 11/15/16 at 21:00 Vitamin B Complex/ Vitamin C (Berocca) 1 cap DAILY PO Last administered on 11/18 09:11; Admin Dose 1 CAP; Start 11/16/16 at 09:00 Tacrolimus (Prograf) 0.5 mg Q12 PO Last administered on 11/18/16 09:12; Admin Dose 0.5 MG; Start 11/15/16 at 21:00 Clonidine (Catapres) 0.1 mg TID PO Last administered on 11/18/16 12:48; Admin Dose 0.1 MG; Start 11/16/16 at 09:00 Insulin Glargine (Lantus) 15 unit BID SC ; Start 11/18/16 at 21:00 LORIE BARBA MD Nov 18, 2016 14:35
--- NOTE | 2016-11-18 19:12 | PN ---
Date/Time of Note Date/Time of Note DATE: 11/18/16 TIME: 19:09 Assessment/Plan VTE Prophylaxis VTE Prophylaxis Intervention: other Lines/Catheters [facility] HD ACCESS Urinary Cath still in place: No Assessment/Plan Assessment/Plan -End-stage renal disease. Dr. Torres is following a nephrology consultation. Continue hemodialysis -Failed renal transplant -Diabetes mellitus, continue Lantus and NovoLog. -Hypertension, kidney labetalol. 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 Dr. Carr is following patient in hematology consultation. Further recommendations based on clinical course. Plan of care discussed with Dr. Marshall Exam/Review of Systems Vital Signs Vitals Vital Signs Date Time Temp Pulse Resp B/P Pulse Ox O2 Delivery O2 Flow Rate FiO2 11/18/16 02:00 98.6 73 20 108/54 99 11/17/16 12:15 Room Air 11/17/16 12:00 2.0 Intake and Output 11/17/16 11/17/16 11/18/16 15:00 23:00 07:00 Intake Total 200 ml 920 ml Output Total 1800 ml Balance 200 ml -880 ml Exam Constitutional: alert, oriented, well developed Respiratory: clear to auscultation, normal air movement Cardiovascular: nl pulses, other (left chest HD Cath- DDI), regular rate and rhythm Gastrointestinal: non-tender, soft Musculoskeletal: nl extremities to inspection Extremities: normal pulses Neurological: nl mental status, nl speech Results Result Diagram: 11/18/16 0719 11/18/16 0719 Results 24 hrs Laboratory Tests Test 11/17/16 20:40 11/18/16 03:10 11/18/16 03:34 11/18/16 04:04 Bedside Glucose 300 H 66 L 69 L 86 Test 11/18/16 05:55 11/18/16 07:19 11/18/16 07:48 11/18/16 08:04 Lab Scanned Report BLOOD TRANSFUSION White Blood Count 4.1 L Red Blood Count 3.38 L Hemoglobin 10.2 L Hematocrit 30.8 L Mean Corpuscular Volume 91.1 Mean Corpuscular Hemoglobin 30.2 Mean Corpuscular Hemoglobin Concent 33.1 Red Cell Distribution Width 15.5 H Platelet Count 84 L Mean Platelet Volume Neutrophils % 63.0 Lymphocytes % 27.0 Monocytes % 9.0 Eosinophils % 1.0 Neutrophils # 2.6 Lymphocytes # 1.1 Monocytes # 0.4 Eosinophils # 0.0 Platelet Estimate PLT APPEAR DECREASED Poikilocytosis 1+ Target Cells OCCASIONAL Ovalocytes FEW Prothrombin Time 14.9 H Prothrombin Time Ratio 1.2 INR International Normalized Ratio 1.16 Activated Partial Thromboplast Time 32.4 Thrombin Time 17.3 Fibrinogen 352.0 Plasma Fibrin Degradation Products <10 D-Dimer 1311.49 H D-Dimer Comment Sodium Level 142 Potassium Level 4.0 Chloride Level 100 Carbon Dioxide Level 27 Anion Gap 19 H Blood Urea Nitrogen 65 H Creatinine 2.62 H Glucose Level 56 L Calcium Level 8.3 L Total Bilirubin 0.2 Direct Bilirubin 0.00 Indirect Bilirubin 0.2 Aspartate Amino Transf (AST/SGOT) 45 Alanine Aminotransferase (ALT/SGPT) 41 Alkaline Phosphatase 188 H Lactate Dehydrogenase 796 H Total Protein 6.9 Albumin 4.0 Globulin 2.90 Albumin/Globulin Ratio 1.37 Bedside Glucose 47 *L 71 Test 11/18/16 08:20 11/18/16 08:48 11/18/16 11:41 11/18/16 16:49 Bedside Glucose 104 172 127 170 Medications Medications Current Medications Folic Acid (Folic Acid) 1 mg BID PO Last administered on 11/18/16 09:12; Admin Dose 1 MG; Start 11/15/16 at 21:00 Labetalol HCl (Normodyne) 100 mg BID PO Last administered on 11/17/16 20:48; Admin Dose 100 MG; Start 11/15/16 at 21:00 Miscellaneous Information 1 ea NOTE XX ; Start 11/15/16 at 19:30 Glucose (Glutose) 15 gm Q15M PRN PO DECREASED GLUCOSE; Start 11/15/16 at 19:30 Glucose (Glutose) 22.5 gm Q15M PRN PO DECREASED GLUCOSE; Start 11/15/16 at 19: 30 Dextrose (D50w Syringe) 25 ml Q15M PRN IV DECREASED GLUCOSE; Start 11/15/16 at 19:30 Dextrose (D50w Syringe) 50 ml Q15M PRN IV DECREASED GLUCOSE Last administered on 11/17/16 10:08; Admin Dose 50 ML; Start 11/15/16 at 19:30 Glucagon (Glucagen) 1 mg Q15M PRN IM DECREASED GLUCOSE; Start 11/15/16 at 19:30 Glucose (Glutose) 15 gm Q15M PRN BUCCAL DECREASED GLUCOSE; Start 11/15/16 at 19 :30 Diagnostic Test (Pha) (Accu-Chek) 1 ea 02 XX Last administered on 11/18/16 03: 00; Admin Dose 1 EA; Start 11/16/16 at 02:00 Ondansetron HCl (Zofran Inj) 4 mg Q6H PRN IV NAUSEA AND/OR VOMITING; Start 04/22 at 19:30 Acetaminophen (Tylenol Tab) 650 mg Q6H PRN PO PAIN LEVEL 1-3 OR FEVER Last administered on 11/18/16 00:13; Admin Dose 650 MG; Start 11/15/16 at 19:30 Morphine Sulfate (morphine) 2 mg Q4H PRN IV SEVERE PAIN LEVEL 7-10 Last administered on 11/17/16 21:04; Admin Dose 2 MG; Start 11/15/16 at 19:30 Zolpidem Tartrate (Ambien) 5 mg QHS PRN PO SLEEP Last administered on 23:33; Admin Dose 5 MG; Start 11/15/16 at 19:30 Pantoprazole (Protonix Tab) 40 mg DAILY@06 PO Last administered on 11/18/16 06 :27; Admin Dose 40 MG; Start 11/16/16 at 06:00 Docusate Sodium (Colace) 100 mg BID PO Last administered on 11/17/16 20:48; Admin Dose 100 MG; Start 11/15/16 at 21:00 Polyethylene Glycol (Miralax) 17 gm DAILY PRN GTB CONSTIPATION; Start 11/15/16 at 19:30 Furosemide (Lasix) 40 mg DAILY PO Last administered on 11/16/16 08:35; Admin Dose 40 MG; Start 11/16/16 at 09:00 Prednisone (Prednisone) 5 mg DAILY PO Last administered on 11/18/16 09:12; Admin Dose 5 MG; Start 11/16/16 at 09:00 Sodium Bicarbonate (Sodium Bicarbonate Tab) 1,300 mg BID PO Last administered on 11/18/16 09:18; Admin Dose 1,300 MG; Start 11/15/16 at 21:00 Vitamin B Complex/ Vitamin C (Berocca) 1 cap DAILY PO Last administered on 11/18 09:11; Admin Dose 1 CAP; Start 11/16/16 at 09:00 Tacrolimus (Prograf) 0.5 mg Q12 PO Last administered on 11/18/16 09:12; Admin Dose 0.5 MG; Start 11/15/16 at 21:00 Clonidine (Catapres) 0.1 mg TID PO Last administered on 11/18/16 12:48; Admin Dose 0.1 MG; Start 11/16/16 at 09:00 Insulin Glargine (Lantus) 15 unit BID SC ; Start 11/18/16 at 21:00 JEFF MELGAR Nov 18, 2016 19:11
[2016-11-18 20:21] VITALS: BP 119/63; RESP 18
[2016-11-18] MEDS: INSULIN GLARGINE [LANtus] 3 ML PEN SC SCH (20:36)
[2016-11-18] MEDS: ZOLPIDEM 5 MG TAB PO PRN (23:26)
[2016-11-19] VITALS (12 sets, daily range): BP systolic 110–188; BP diastolic 55–87; PULSE 72–88; RESP 17–18
[2016-11-19] MEDS: ACCU-CHEK XX SCH (02:00)
[2016-11-19] MEDS: morphine 2 MG INJ IV PRN ×2 (04:00→09:07)
[2016-11-19] MEDS: PANTOPRAZOLE (EC) 40 MG TAB PO SCH (05:22)
[2016-11-19 05:37] LABS: ADD SCAN DIFF NO
[2016-11-19 05:49] LABS: ABNORMAL IP MESSAGE 1; BASOPHILS % 0.3 % (0.0-2.0); HEMATOCRIT 30.4 % (42.0-52.0); HEMOGLOBIN 9.6 g/dl (14.0-18.0); LYMPHOCYTES # 1.2 10^3/ul (0.8-2.9); LYMPHOCYTES % 30.9 % (15.0-51.0); MEAN CORPUSCULAR HEMOGLOBIN 28.7 pg (29.0-33.0); MEAN CORPUSCULAR HGB CONC 31.6 g/dl (32.0-37.0); MEAN CORPUSCULAR VOLUME 90.7 fl (82.0-101.0); MONOCYTE # 0.3 10^3/ul (0.3-0.9); MONOCYTES % 8.3 % (0.0-11.0); NEUTROPHIL # 2.3 10^3/ul (1.6-7.5); RED BLOOD COUNT 3.35 10^6/ul (4.70-6.10); RED CELL DISTRIBUTION WIDTH 15.7 % (11.5-14.5); WHITE BLOOD COUNT 3.9 10^3/ul (4.8-10.8)
[2016-11-19 05:51] LABS: PLATELET COUNT 61 10^3/UL (140-415)
[2016-11-19 06:00] LABS: ALBUMIN 3.9 g/dl (3.3-4.9); ALBUMIN/GLOBULIN RATIO 1.39; BILIRUBIN,INDIRECT 0.1 mg/dl (0-1.1); BILIRUBIN,TOTAL 0.1 mg/dl (0.2-1.3); CALCIUM 8.4 mg/dl (8.4-10.2); CREATININE 3.23 mg/dl (0.61-1.24); TOTAL PROTEIN 6.7 g/dl (6.1-8.1)
[2016-11-19] MEDS: INSULIN ASPART [NOVOLOG] 3 ML PEN SC SCH ×4 (08:00→20:35)
[2016-11-19] MEDS: INSULIN GLARGINE [LANtus] 3 ML PEN SC SCH ×2 (09:03→20:34)
[2016-11-19] MEDS: FOLIC ACID 1 MG TAB PO SCH ×2 (09:08→20:32)
[2016-11-19] MEDS: TAMSULOSIN (SR) 0.4 MG CAP PO SCH ×2 (09:08→18:05)
[2016-11-19] MEDS: DOCUSATE SODIUM 100 MG CAP PO SCH ×2 (09:08→20:32)
[2016-11-19] MEDS: TACROLIMUS 0.5 MG CAP PO SCH ×2 (09:09→20:33)
[2016-11-19] MEDS: NA BICARBONATE 650 MG TAB PO SCH ×2 (09:09→20:33)
[2016-11-19] MEDS: FUROSEMIDE 40 MG TAB PO SCH (14:26)
[2016-11-19] MEDS: LABETALOL 100 MG TAB PO SCH ×2 (14:26→20:32)
[2016-11-19] MEDS: predniSONE 5 MG TAB PO SCH (14:27)
[2016-11-19] MEDS: VITAMIN B COMPLEX/VIT C CAP PO SCH (14:27)
--- NOTE | 2016-11-19 14:41 | CONS ---
Date/Time of Note Date/Time of Note DATE: 11/19/16 TIME: 14:39 Assessment/Plan Assessment/Plan Additional Assessment/Plan 1. 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 arrangements being made for outpatient hd 2. End-stage renal disease: s/p tunelled catheter. 3. History of congestive heart failure: compensated 4. Hypertension: on meds and stable 5. Gastroesophageal reflux disease: ppi prn 6. Insulin-dependent diabetes mellitus: on meds and stable 7. Pancytopenia with severe thrombocytopenia: monitor labs: stable 8. Diabetic retinopathy blind in left eye 9. Peripheral artery disease status post left leg below the knee amputation Consultation Date/Type/Reason Admit Date/Time Nov 15, 2016 at 17:18 Initial Consult Date 11/15/16 Type of Consultation: Hematology Referring Provider: MICHELLE LAGOS MD 24 HR Interval Summary Free Text/Dictation doing well. waiting for hd today. waiting for dc pending arrangements for outpatient hd. some itching at the site of the dressing Exam/Review of Systems Vital Signs Vitals Vital Signs Date Time Temp Pulse Resp B/P Pulse Ox O2 Delivery O2 Flow Rate FiO2 11/19/16 14:25 97.8 85 17 120/60 96 11/17/16 12:15 Room Air 11/17/16 12:00 2.0 Intake and Output 11/18/16 11/18/16 11/19/16 15:00 23:00 07:00 Intake Total 240 ml 1360 ml 380 ml Output Total 0 ml 850 ml 1050 ml Balance 240 ml 510 ml -670 ml Exam Constitutional: alert, oriented, well developed Psych: no complaints Head: atraumatic, normocephalic Eyes: nl conjunctiva Neck: non-tender, supple Respiratory: clear to auscultation Cardiovascular: edema, nl pulses, regular rate and rhythm Gastrointestinal: non-tender, soft Results Result Diagram: 11/19/16 0521 11/19/16 0524 Results 24 hrs Laboratory Tests Test 11/18/16 16:49 11/18/16 20:27 11/19/16 02:08 11/19/16 05:21 Bedside Glucose 170 257 H 144 White Blood Count 3.9 L Red Blood Count 3.35 L Hemoglobin 9.6 L Hematocrit 30.4 L Mean Corpuscular Volume 90.7 Mean Corpuscular Hemoglobin 28.7 L Mean Corpuscular Hemoglobin Concent 31.6 L Red Cell Distribution Width 15.7 H Platelet Count 61 #L Mean Platelet Volume Neutrophils % 59.0 Lymphocytes % 30.9 Monocytes % 8.3 Eosinophils % 1.0 Basophils % 0.3 Nucleated Red Blood Cells % 0.0 Neutrophils # 2.3 Lymphocytes # 1.2 Monocytes # 0.3 Eosinophils # 0.0 Basophils # 0.0 Nucleated Red Blood Cells # 0.0 Test 11/19/16 05:24 11/19/16 07:57 11/19/16 09:14 11/19/16 14:21 Sodium Level 137 Potassium Level 4.0 Chloride Level 98 Carbon Dioxide Level 27 Anion Gap 16 Blood Urea Nitrogen 77 H Creatinine 3.23 H Glucose Level 106 # Calcium Level 8.4 Total Bilirubin 0.1 L Direct Bilirubin 0.00 Indirect Bilirubin 0.1 Aspartate Amino Transf (AST/SGOT) 37 Alanine Aminotransferase (ALT/SGPT) 34 Alkaline Phosphatase 170 H Total Protein 6.7 Albumin 3.9 Globulin 2.80 Albumin/Globulin Ratio 1.39 Bedside Glucose 78 111 188 Medications Medications Current Medications Folic Acid (Folic Acid) 1 mg BID PO Last administered on 11/19/16 09:08; Admin Dose 1 MG; Start 11/15/16 at 21:00 Labetalol HCl (Normodyne) 100 mg BID PO Last administered on 11/19/16 14:26; Admin Dose 100 MG; Start 11/15/16 at 21:00 Miscellaneous Information 1 ea NOTE XX ; Start 11/15/16 at 19:30 Glucose (Glutose) 15 gm Q15M PRN PO DECREASED GLUCOSE; Start 11/15/16 at 19:30 Glucose (Glutose) 22.5 gm Q15M PRN PO DECREASED GLUCOSE; Start 11/15/16 at 19: 30 Dextrose (D50w Syringe) 25 ml Q15M PRN IV DECREASED GLUCOSE; Start 11/15/16 at 19:30 Dextrose (D50w Syringe) 50 ml Q15M PRN IV DECREASED GLUCOSE Last administered on 11/17/16 10:08; Admin Dose 50 ML; Start 11/15/16 at 19:30 Glucagon (Glucagen) 1 mg Q15M PRN IM DECREASED GLUCOSE; Start 11/15/16 at 19:30 Glucose (Glutose) 15 gm Q15M PRN BUCCAL DECREASED GLUCOSE; Start 11/15/16 at 19 :30 Diagnostic Test (Pha) (Accu-Chek) 1 ea 02 XX Last administered on 11/19/16 02: 00; Admin Dose 1 EA; Start 11/16/16 at 02:00 Ondansetron HCl (Zofran Inj) 4 mg Q6H PRN IV NAUSEA AND/OR VOMITING; Start 04/22 at 19:30 Acetaminophen (Tylenol Tab) 650 mg Q6H PRN PO PAIN LEVEL 1-3 OR FEVER Last administered on 11/18/16 00:13; Admin Dose 650 MG; Start 11/15/16 at 19:30 Morphine Sulfate (morphine) 2 mg Q4H PRN IV SEVERE PAIN LEVEL 7-10 Last administered on 11/19/16 09:07; Admin Dose 2 MG; Start 11/15/16 at 19:30 Zolpidem Tartrate (Ambien) 5 mg QHS PRN PO SLEEP Last administered on 23:26; Admin Dose 5 MG; Start 11/15/16 at 19:30 Pantoprazole (Protonix Tab) 40 mg DAILY@06 PO Last administered on 11/19/16 05 :22; Admin Dose 40 MG; Start 11/16/16 at 06:00 Docusate Sodium (Colace) 100 mg BID PO Last administered on 11/19/16 09:08; Admin Dose 100 MG; Start 11/15/16 at 21:00 Polyethylene Glycol (Miralax) 17 gm DAILY PRN GTB CONSTIPATION; Start 11/15/16 at 19:30 Furosemide (Lasix) 40 mg DAILY PO Last administered on 11/19/16 14:26; Admin Dose 40 MG; Start 11/16/16 at 09:00 Prednisone (Prednisone) 5 mg DAILY PO Last administered on 11/19/16 14:27; Admin Dose 5 MG; Start 11/16/16 at 09:00 Sodium Bicarbonate (Sodium Bicarbonate Tab) 1,300 mg BID PO Last administered on 11/19/16 09:09; Admin Dose 1,300 MG; Start 11/15/16 at 21:00 Vitamin B Complex/ Vitamin C (Berocca) 1 cap DAILY PO Last administered on 11/19 14:27; Admin Dose 1 CAP; Start 11/16/16 at 09:00 Tacrolimus (Prograf) 0.5 mg Q12 PO Last administered on 11/19/16 09:09; Admin Dose 0.5 MG; Start 11/15/16 at 21:00 Clonidine (Catapres) 0.1 mg TID PO Last administered on 11/19/16 14:27; Admin Dose 0.1 MG; Start 11/16/16 at 09:00 Insulin Glargine (Lantus) 15 unit BID SC Last administered on 11/19/16 09:03; Admin Dose 15 UNIT; Start 11/18/16 at 21:00 LORIE BARBA MD Nov 19, 2016 14:41
--- NOTE | 2016-11-19 16:39 | PN ---
Date/Time of Note Date/Time of Note DATE: 11/19/16 TIME: 16:36 Assessment/Plan VTE Prophylaxis VTE Prophylaxis Intervention: other Lines/Catheters IV Catheter Type (from [facility] [place]): [place] Lock Urinary Cath still in place: No Assessment/Plan Assessment/Plan -End-stage renal disease. Dr. Torres is following a nephrology consultation. Continue hemodialysis -Failed renal transplant -Diabetes mellitus, continue Lantus and NovoLog. -Hypertension, kidney labetalol. 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 Dr. Carr is following patient in hematology consultation. Further recommendations based on clinical course. Plan of care discussed with Dr. Marshlal Subjective 24 Hr Interval Summary Respiratory: no complaints Cardiovascular: no complaints Gastrointestinal: no complaints Genitourinary: no complaints Exam/Review of Systems Vital Signs Vitals Vital Signs Date Time Temp Pulse Resp B/P Pulse Ox O2 Delivery O2 Flow Rate FiO2 11/19/16 14:25 97.8 85 17 120/60 96 11/17/16 12:15 Room Air 11/17/16 12:00 2.0 Intake and Output 11/18/16 11/18/16 11/19/16 15:00 23:00 07:00 Intake Total 240 ml 1360 ml 380 ml Output Total 0 ml 850 ml 1050 ml Balance 240 ml 510 ml -670 ml Exam Constitutional: alert, well developed Psych: nl mood/affect Respiratory: clear to auscultation, normal air movement Cardiovascular: nl pulses, regular rate and rhythm Gastrointestinal: soft Musculoskeletal: nl extremities to inspection Extremities: normal pulses Neurological: nl mental status, nl speech Results Result Diagram: 11/19/16 0521 11/19/16 0524 Results 24 hrs Laboratory Tests Test 11/18/16 16:49 11/18/16 20:27 11/19/16 02:08 11/19/16 05:21 Bedside Glucose 170 257 H 144 White Blood Count 3.9 L Red Blood Count 3.35 L Hemoglobin 9.6 L Hematocrit 30.4 L Mean Corpuscular Volume 90.7 Mean Corpuscular Hemoglobin 28.7 L Mean Corpuscular Hemoglobin Concent 31.6 L Red Cell Distribution Width 15.7 H Platelet Count 61 #L Mean Platelet Volume Neutrophils % 59.0 Lymphocytes % 30.9 Monocytes % 8.3 Eosinophils % 1.0 Basophils % 0.3 Nucleated Red Blood Cells % 0.0 Neutrophils # 2.3 Lymphocytes # 1.2 Monocytes # 0.3 Eosinophils # 0.0 Basophils # 0.0 Nucleated Red Blood Cells # 0.0 Test 11/19/16 05:24 11/19/16 07:57 11/19/16 09:14 11/19/16 14:21 Sodium Level 137 Potassium Level 4.0 Chloride Level 98 Carbon Dioxide Level 27 Anion Gap 16 Blood Urea Nitrogen 77 H Creatinine 3.23 H Glucose Level 106 # Calcium Level 8.4 Total Bilirubin 0.1 L Direct Bilirubin 0.00 Indirect Bilirubin 0.1 Aspartate Amino Transf (AST/SGOT) 37 Alanine Aminotransferase (ALT/SGPT) 34 Alkaline Phosphatase 170 H Total Protein 6.7 Albumin 3.9 Globulin 2.80 Albumin/Globulin Ratio 1.39 Bedside Glucose 78 111 188 Medications Medications Current Medications Folic Acid (Folic Acid) 1 mg BID PO Last administered on 11/19/16 09:08; Admin Dose 1 MG; Start 11/15/16 at 21:00 Labetalol HCl (Normodyne) 100 mg BID PO Last administered on 11/19/16 14:26; Admin Dose 100 MG; Start 11/15/16 at 21:00 Miscellaneous Information 1 ea NOTE XX ; Start 11/15/16 at 19:30 Glucose (Glutose) 15 gm Q15M PRN PO DECREASED GLUCOSE; Start 11/15/16 at 19:30 Glucose (Glutose) 22.5 gm Q15M PRN PO DECREASED GLUCOSE; Start 11/15/16 at 19: 30 Dextrose (D50w Syringe) 25 ml Q15M PRN IV DECREASED GLUCOSE; Start 11/15/16 at 19:30 Dextrose (D50w Syringe) 50 ml Q15M PRN IV DECREASED GLUCOSE Last administered on 11/17/16 10:08; Admin Dose 50 ML; Start 11/15/16 at 19:30 Glucagon (Glucagen) 1 mg Q15M PRN IM DECREASED GLUCOSE; Start 11/15/16 at 19:30 Glucose (Glutose) 15 gm Q15M PRN BUCCAL DECREASED GLUCOSE; Start 11/15/16 at 19 :30 Diagnostic Test (Pha) (Accu-Chek) 1 ea 02 XX Last administered on 11/19/16 02: 00; Admin Dose 1 EA; Start 11/16/16 at 02:00 Ondansetron HCl (Zofran Inj) 4 mg Q6H PRN IV NAUSEA AND/OR VOMITING; Start 04/22 at 19:30 Acetaminophen (Tylenol Tab) 650 mg Q6H PRN PO PAIN LEVEL 1-3 OR FEVER Last administered on 11/18/16 00:13; Admin Dose 650 MG; Start 11/15/16 at 19:30 Morphine Sulfate (morphine) 2 mg Q4H PRN IV SEVERE PAIN LEVEL 7-10 Last administered on 11/19/16 09:07; Admin Dose 2 MG; Start 11/15/16 at 19:30 Zolpidem Tartrate (Ambien) 5 mg QHS PRN PO SLEEP Last administered on 23:26; Admin Dose 5 MG; Start 11/15/16 at 19:30 Pantoprazole (Protonix Tab) 40 mg DAILY@06 PO Last administered on 11/19/16 05 :22; Admin Dose 40 MG; Start 11/16/16 at 06:00 Docusate Sodium (Colace) 100 mg BID PO Last administered on 11/19/16 09:08; Admin Dose 100 MG; Start 11/15/16 at 21:00 Polyethylene Glycol (Miralax) 17 gm DAILY PRN GTB CONSTIPATION; Start 11/15/16 at 19:30 Furosemide (Lasix) 40 mg DAILY PO Last administered on 11/19/16 14:26; Admin Dose 40 MG; Start 11/16/16 at 09:00 Prednisone (Prednisone) 5 mg DAILY PO Last administered on 11/19/16 14:27; Admin Dose 5 MG; Start 11/16/16 at 09:00 Sodium Bicarbonate (Sodium Bicarbonate Tab) 1,300 mg BID PO Last administered on 11/19/16 09:09; Admin Dose 1,300 MG; Start 11/15/16 at 21:00 Vitamin B Complex/ Vitamin C (Berocca) 1 cap DAILY PO Last administered on 11/19 14:27; Admin Dose 1 CAP; Start 11/16/16 at 09:00 Tacrolimus (Prograf) 0.5 mg Q12 PO Last administered on 11/19/16 09:09; Admin Dose 0.5 MG; Start 11/15/16 at 21:00 Clonidine (Catapres) 0.1 mg TID PO Last administered on 11/19/16 14:27; Admin Dose 0.1 MG; Start 11/16/16 at 09:00 Insulin Glargine (Lantus) 15 unit BID SC Last administered on 11/19/16 09:03; Admin Dose 15 UNIT; Start 11/18/16 at 21:00 JEFF MELGAR Nov 19, 2016 16:39
[2016-11-19] MEDS: ZOLPIDEM 5 MG TAB PO PRN (23:12)
[2016-11-20] MEDS: ACCU-CHEK XX SCH (02:11)
[2016-11-20 03:37] VITALS: BP 169/81; RESP 18
[2016-11-20 04:00] VITALS: BP 157/83; PULSE 73
[2016-11-20 05:13] LABS: ADD SCAN DIFF NO
[2016-11-20 05:18] LABS: ABNORMAL IP MESSAGE 1; BASOPHILS % 0.2 % (0.0-2.0); EOSINOPHILS # 0.1 10^3/ul (0.0-0.5); EOSINOPHILS % 1.2 % (0.0-7.0); HEMATOCRIT 31.8 % (42.0-52.0); HEMOGLOBIN 10.1 g/dl (14.0-18.0); LYMPHOCYTES # 1.1 10^3/ul (0.8-2.9); LYMPHOCYTES % 27.2 % (15.0-51.0); MEAN CORPUSCULAR HEMOGLOBIN 29.5 pg (29.0-33.0); MEAN CORPUSCULAR HGB CONC 31.8 g/dl (32.0-37.0); MONOCYTE # 0.3 10^3/ul (0.3-0.9); MONOCYTES % 7.6 % (0.0-11.0); NEUTROPHIL # 2.6 10^3/ul (1.6-7.5); NEUTROPHILS % 63.1 % (39.0-77.0); RED BLOOD COUNT 3.42 10^6/ul (4.70-6.10); RED CELL DISTRIBUTION WIDTH 15.4 % (11.5-14.5); WHITE BLOOD COUNT 4.1 10^3/ul (4.8-10.8)
[2016-11-20] MEDS: PANTOPRAZOLE (EC) 40 MG TAB PO SCH (05:45)
[2016-11-20 05:49] LABS: ALBUMIN 4.1 g/dl (3.3-4.9); ALBUMIN/GLOBULIN RATIO 1.41; BILIRUBIN,INDIRECT 0.2 mg/dl (0-1.1); BILIRUBIN,TOTAL 0.2 mg/dl (0.2-1.3); CALCIUM 8.6 mg/dl (8.4-10.2); CREATININE 2.63 mg/dl (0.61-1.24); POTASSIUM 4.2 mmol/L (3.5-5.1)
[2016-11-20] MEDS: INSULIN ASPART [NOVOLOG] 3 ML PEN SC SCH ×3 (08:00→17:54)
[2016-11-20 08:14] VITALS: BP 149/69; RESP 19
[2016-11-20] MEDS: INSULIN GLARGINE [LANtus] 3 ML PEN SC SCH (09:00)
[2016-11-20] MEDS: VITAMIN B COMPLEX/VIT C CAP PO SCH (09:19)
[2016-11-20] MEDS: predniSONE 5 MG TAB PO SCH (09:19)
[2016-11-20] MEDS: TACROLIMUS 0.5 MG CAP PO SCH (09:19)
[2016-11-20] MEDS: NA BICARBONATE 650 MG TAB PO SCH (09:19)
[2016-11-20] MEDS: FOLIC ACID 1 MG TAB PO SCH (09:19)
[2016-11-20] MEDS: DOCUSATE SODIUM 100 MG CAP PO SCH (09:19)
[2016-11-20] MEDS: LABETALOL 100 MG TAB PO SCH (09:20)
[2016-11-20] MEDS: FUROSEMIDE 40 MG TAB PO SCH (09:20)
[2016-11-20] MEDS: TAMSULOSIN (SR) 0.4 MG CAP PO SCH ×2 (09:29→17:58)
--- NOTE | 2016-11-20 13:55 | PDOCDIS ---
Discharge Instructions DIAGNOSIS Discharge Diagnosis 1. End-stage renal disease 2. Pancytopenia 3. Hypertension 4. Insulin-dependent diabetes mellitus 5. Peripheral artery disease status post left BKA 6. Left internal jugular permacath for hemodialysis. CONDITION Patient Condition: Good HOME CARE INSTRUCTIONS: Diet Instructions: Reduced CalorieSpecial Diet: carb controlled ACTIVITY: Activity Restrictions: Rest between Activity Avoid heavy lifting Bathing Restrictions: Shower FOLLOW UP/APPOINTMENTS Follow-up Plan SPRING Mcallister MD Nov 20, 2016 13:55
--- NOTE | 2016-11-20 15:10 | CONS ---
Date/Time of Note Date/Time of Note DATE: 11/20/16 TIME: 15:07 Assessment/Plan Assessment/Plan Chief Complaint/Hosp Course 56 yo with ESRD to receive a tunneled catheter. 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 #Thrombocytopenia - with a platelet count of 55 pt should be ok to proceed with the tunneled catheter without complication, however given 1 unit of fresh platelet prior to the procedure in the case patient suffers from coagulopathy from uremic platelets. Post transfusiuon platelets 71K, now somewhat lower at 58K. Continue to monitor. - if patient oozes post procedure can given DDAVP but at this time pt does not appear to have a bleeding diathesis - although this is chronic, I have requested a peripheral smear review to ensure no evidence of TTP. LDH elevated, pending haptoglobin. Peripheral smear showed thrombocytopenia, rare giant platelet, rare schistocytes (not consistent with TTP), no immature granulocytes or blasts - no evidence of DIC - if platelets do not respond to transfusion and patient is bleeding, will start steroids and IVIG at that time # ESRD - s/p tunneled catheter for dialysis - management per nephrology Problems: Consultation Date/Type/Reason Admit Date/Time Nov 15, 2016 at 17:18 Initial Consult Date 11/15/16 Type of Consultation: Hematology Referring Provider: MICHELLE LAGOS MD 24 HR Interval Summary Free Text/Dictation No bleeding or oozing. Exam/Review of Systems Vital Signs Vitals Vital Signs Date Time Temp Pulse Resp B/P Pulse Ox O2 Delivery O2 Flow Rate FiO2 11/20/16 08:14 97.4 68 19 149/69 100 11/17/16 12:15 Room Air 11/17/16 12:00 2.0 Intake and Output 11/19/16 11/19/16 11/20/16 15:00 23:00 07:00 Intake Total 500 ml 840 ml 240 ml Output Total 2500 ml 240 ml 250 ml Balance -2000 ml 600 ml -10 ml Exam Constitutional: alert, oriented Psych: nl mood/affect, no complaints Head: atraumatic, normocephalic Eyes: nl conjunctiva ENMT: nl external ears & nose Neck: non-tender, supple Respiratory: clear to auscultation, normal air movement Cardiovascular: nl pulses, regular rate and rhythm Gastrointestinal: soft Musculoskeletal: nl extremities to inspection, nl gait and stance Extremities: normal pulses Results Result Diagram: 11/20/16 0451 11/20/16 0451 Results 24 hrs Laboratory Tests Test 11/19/16 17:07 11/19/16 20:28 11/20/16 02:01 11/20/16 04:51 Bedside Glucose 188 199 148 White Blood Count 4.1 L Red Blood Count 3.42 L Hemoglobin 10.1 L Hematocrit 31.8 L Mean Corpuscular Volume 93.0 Mean Corpuscular Hemoglobin 29.5 Mean Corpuscular Hemoglobin Concent 31.8 L Red Cell Distribution Width 15.4 H Platelet Count 58 L Mean Platelet Volume 12.0 H Neutrophils % 63.1 Lymphocytes % 27.2 Monocytes % 7.6 Eosinophils % 1.2 Basophils % 0.2 Nucleated Red Blood Cells % 0.0 Neutrophils # 2.6 Lymphocytes # 1.1 Monocytes # 0.3 Eosinophils # 0.1 Basophils # 0.0 Nucleated Red Blood Cells # 0.0 Sodium Level 142 Potassium Level 4.2 Chloride Level 101 Carbon Dioxide Level 30 Anion Gap 15 Blood Urea Nitrogen 50 H Creatinine 2.63 H Glucose Level 115 Calcium Level 8.6 Total Bilirubin 0.2 Direct Bilirubin 0.00 Indirect Bilirubin 0.2 Aspartate Amino Transf (AST/SGOT) 45 Alanine Aminotransferase (ALT/SGPT) 39 Alkaline Phosphatase 178 H Total Protein 7.0 Albumin 4.1 Globulin 2.90 Albumin/Globulin Ratio 1.41 Test 11/20/16 08:21 11/20/16 08:35 11/20/16 09:11 11/20/16 11:58 Bedside Glucose 59 L 73 132 159 Medications Medications Current Medications Folic Acid (Folic Acid) 1 mg BID PO Last administered on 11/20/16 09:19; Admin Dose 1 MG; Start 11/15/16 at 21:00 Labetalol HCl (Normodyne) 100 mg BID PO Last administered on 11/20/16 09:20; Admin Dose 100 MG; Start 11/15/16 at 21:00 Miscellaneous Information 1 ea NOTE XX ; Start 11/15/16 at 19:30 Glucose (Glutose) 15 gm Q15M PRN PO DECREASED GLUCOSE; Start 11/15/16 at 19:30 Glucose (Glutose) 22.5 gm Q15M PRN PO DECREASED GLUCOSE; Start 11/15/16 at 19: 30 Dextrose (D50w Syringe) 25 ml Q15M PRN IV DECREASED GLUCOSE; Start 11/15/16 at 19:30 Dextrose (D50w Syringe) 50 ml Q15M PRN IV DECREASED GLUCOSE Last administered on 11/17/16 10:08; Admin Dose 50 ML; Start 11/15/16 at 19:30 Glucagon (Glucagen) 1 mg Q15M PRN IM DECREASED GLUCOSE; Start 11/15/16 at 19:30 Glucose (Glutose) 15 gm Q15M PRN BUCCAL DECREASED GLUCOSE; Start 11/15/16 at 19 :30 Diagnostic Test (Pha) (Accu-Chek) 1 ea 02 XX Last administered on 11/20/16 02: 11; Admin Dose 1 EA; Start 11/16/16 at 02:00 Ondansetron HCl (Zofran Inj) 4 mg Q6H PRN IV NAUSEA AND/OR VOMITING; Start 04/22 at 19:30 Acetaminophen (Tylenol Tab) 650 mg Q6H PRN PO PAIN LEVEL 1-3 OR FEVER Last administered on 11/18/16 00:13; Admin Dose 650 MG; Start 11/15/16 at 19:30 Morphine Sulfate (morphine) 2 mg Q4H PRN IV SEVERE PAIN LEVEL 7-10 Last administered on 11/19/16 09:07; Admin Dose 2 MG; Start 11/15/16 at 19:30 Zolpidem Tartrate (Ambien) 5 mg QHS PRN PO SLEEP Last administered on 23:12; Admin Dose 5 MG; Start 11/15/16 at 19:30 Pantoprazole (Protonix Tab) 40 mg DAILY@06 PO Last administered on 11/20/16 05 :45; Admin Dose 40 MG; Start 11/16/16 at 06:00 Docusate Sodium (Colace) 100 mg BID PO Last administered on 11/20/16 09:19; Admin Dose 100 MG; Start 11/15/16 at 21:00 Polyethylene Glycol (Miralax) 17 gm DAILY PRN GTB CONSTIPATION; Start 11/15/16 at 19:30 Furosemide (Lasix) 40 mg DAILY PO Last administered on 11/20/16 09:20; Admin Dose 40 MG; Start 11/16/16 at 09:00 Prednisone (Prednisone) 5 mg DAILY PO Last administered on 11/20/16 09:19; Admin Dose 5 MG; Start 11/16/16 at 09:00 Sodium Bicarbonate (Sodium Bicarbonate Tab) 1,300 mg BID PO Last administered on 11/20/16 09:19; Admin Dose 1,300 MG; Start 11/15/16 at 21:00 Vitamin B Complex/ Vitamin C (Berocca) 1 cap DAILY PO Last administered on 11/20 09:19; Admin Dose 1 CAP; Start 11/16/16 at 09:00 Tacrolimus (Prograf) 0.5 mg Q12 PO Last administered on 11/20/16 09:19; Admin Dose 0.5 MG; Start 11/15/16 at 21:00 Clonidine (Catapres) 0.1 mg TID PO Last administered on 11/20/16 14:19; Admin Dose 0.1 MG; Start 11/16/16 at 09:00 Insulin Glargine (Lantus) 15 unit BID SC Last administered on 11/19/16 20:34; Admin Dose 15 UNIT; Start 11/18/16 at 21:00 ANDREA ANTONIO MD Nov 20, 2016 15:09
[2016-11-20 16:12] LABS: PLATELET COUNT 58 10^3/UL (140-415)
--- NOTE | 2016-11-20 16:18 | PN ---
Date/Time of Note Date/Time of Note DATE: 11/20/16 TIME: 16:14 Assessment/Plan VTE Prophylaxis VTE Prophylaxis Intervention: contraindicated, SCD's VTE Contraindication Reason: thrombocytopenia Lines/Catheters IV [facility] Urinary Cath still in place: No Assessment/Plan Chief Complaint/Hosp Course Hypoglycemia episode in the morning will decrease Lantus to 10 units nightly, patient denies any chest pain. Pending hemodialysis arrangement as an outpatient. Assessment/Plan -End-stage renal disease. Dr. Torres is following a nephrology consultation. Continue hemodialysis -Failed renal transplant -Diabetes mellitus, continue Lantus and NovoLog. -Hypertension, kidney labetalol. 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 Dr. Carr is following patient in hematology consultation. Further recommendations based on clinical course. Plan of care discussed with Dr. Maloney. Problems: Exam/Review of Systems Vital Signs Vitals Vital Signs Date Time Temp Pulse Resp B/P Pulse Ox O2 Delivery O2 Flow Rate FiO2 11/20/16 08:14 97.4 68 19 149/69 100 11/17/16 12:15 Room Air 11/17/16 12:00 2.0 Intake and Output 11/19/16 11/19/16 11/20/16 15:00 23:00 07:00 Intake Total 500 ml 840 ml 240 ml Output Total 2500 ml 240 ml 250 ml Balance -2000 ml 600 ml -10 ml Exam Constitutional: alert, oriented Head: atraumatic, normocephalic Eyes: other (left eye blind) Neck: supple Respiratory: normal air movement Cardiovascular: nl pulses Gastrointestinal: non-tender, soft Extremities: normal pulses, other (L BKA) Neurological: nl mental status Skin: nl turgor, other (RLE multiple abrasions) Left subclavian Missael catheter Results Result Diagram: 11/20/16 0451 11/20/16 0451 Results 24 hrs Laboratory Tests Test 11/19/16 17:07 11/19/16 20:28 11/20/16 02:01 11/20/16 04:51 Bedside Glucose 188 199 148 White Blood Count 4.1 L Red Blood Count 3.42 L Hemoglobin 10.1 L Hematocrit 31.8 L Mean Corpuscular Volume 93.0 Mean Corpuscular Hemoglobin 29.5 Mean Corpuscular Hemoglobin Concent 31.8 L Red Cell Distribution Width 15.4 H Platelet Count 58 L Mean Platelet Volume 12.0 H Neutrophils % 63.1 Lymphocytes % 27.2 Monocytes % 7.6 Eosinophils % 1.2 Basophils % 0.2 Nucleated Red Blood Cells % 0.0 Neutrophils # 2.6 Lymphocytes # 1.1 Monocytes # 0.3 Eosinophils # 0.1 Basophils # 0.0 Nucleated Red Blood Cells # 0.0 Sodium Level 142 Potassium Level 4.2 Chloride Level 101 Carbon Dioxide Level 30 Anion Gap 15 Blood Urea Nitrogen 50 H Creatinine 2.63 H Glucose Level 115 Calcium Level 8.6 Total Bilirubin 0.2 Direct Bilirubin 0.00 Indirect Bilirubin 0.2 Aspartate Amino Transf (AST/SGOT) 45 Alanine Aminotransferase (ALT/SGPT) 39 Alkaline Phosphatase 178 H Total Protein 7.0 Albumin 4.1 Globulin 2.90 Albumin/Globulin Ratio 1.41 Test 11/20/16 08:21 11/20/16 08:35 11/20/16 09:11 11/20/16 11:58 Bedside Glucose 59 L 73 132 159 Medications Medications Current Medications Folic Acid (Folic Acid) 1 mg BID PO Last administered on 11/20/16 09:19; Admin Dose 1 MG; Start 11/15/16 at 21:00 Labetalol HCl (Normodyne) 100 mg BID PO Last administered on 11/20/16 09:20; Admin Dose 100 MG; Start 11/15/16 at 21:00 Miscellaneous Information 1 ea NOTE XX ; Start 11/15/16 at 19:30 Glucose (Glutose) 15 gm Q15M PRN PO DECREASED GLUCOSE; Start 11/15/16 at 19:30 Glucose (Glutose) 22.5 gm Q15M PRN PO DECREASED GLUCOSE; Start 11/15/16 at 19: 30 Dextrose (D50w Syringe) 25 ml Q15M PRN IV DECREASED GLUCOSE; Start 11/15/16 at 19:30 Dextrose (D50w Syringe) 50 ml Q15M PRN IV DECREASED GLUCOSE Last administered on 11/17/16 10:08; Admin Dose 50 ML; Start 11/15/16 at 19:30 Glucagon (Glucagen) 1 mg Q15M PRN IM DECREASED GLUCOSE; Start 11/15/16 at 19:30 Glucose (Glutose) 15 gm Q15M PRN BUCCAL DECREASED GLUCOSE; Start 11/15/16 at 19 :30 Diagnostic Test (Pha) (Accu-Chek) 1 ea 02 XX Last administered on 11/20/16 02: 11; Admin Dose 1 EA; Start 11/16/16 at 02:00 Ondansetron HCl (Zofran Inj) 4 mg Q6H PRN IV NAUSEA AND/OR VOMITING; Start 04/22 at 19:30 Acetaminophen (Tylenol Tab) 650 mg Q6H PRN PO PAIN LEVEL 1-3 OR FEVER Last administered on 11/18/16 00:13; Admin Dose 650 MG; Start 11/15/16 at 19:30 Morphine Sulfate (morphine) 2 mg Q4H PRN IV SEVERE PAIN LEVEL 7-10 Last administered on 11/19/16 09:07; Admin Dose 2 MG; Start 11/15/16 at 19:30 Zolpidem Tartrate (Ambien) 5 mg QHS PRN PO SLEEP Last administered on 23:12; Admin Dose 5 MG; Start 11/15/16 at 19:30 Pantoprazole (Protonix Tab) 40 mg DAILY@06 PO Last administered on 11/20/16 05 :45; Admin Dose 40 MG; Start 11/16/16 at 06:00 Docusate Sodium (Colace) 100 mg BID PO Last administered on 11/20/16 09:19; Admin Dose 100 MG; Start 11/15/16 at 21:00 Polyethylene Glycol (Miralax) 17 gm DAILY PRN GTB CONSTIPATION; Start 11/15/16 at 19:30 Furosemide (Lasix) 40 mg DAILY PO Last administered on 11/20/16 09:20; Admin Dose 40 MG; Start 11/16/16 at 09:00 Prednisone (Prednisone) 5 mg DAILY PO Last administered on 11/20/16 09:19; Admin Dose 5 MG; Start 11/16/16 at 09:00 Sodium Bicarbonate (Sodium Bicarbonate Tab) 1,300 mg BID PO Last administered on 11/20/16 09:19; Admin Dose 1,300 MG; Start 11/15/16 at 21:00 Vitamin B Complex/ Vitamin C (Berocca) 1 cap DAILY PO Last administered on 11/20 09:19; Admin Dose 1 CAP; Start 11/16/16 at 09:00 Tacrolimus (Prograf) 0.5 mg Q12 PO Last administered on 11/20/16 09:19; Admin Dose 0.5 MG; Start 11/15/16 at 21:00 Clonidine (Catapres) 0.1 mg TID PO Last administered on 11/20/16 14:19; Admin Dose 0.1 MG; Start 11/16/16 at 09:00 Insulin Glargine (Lantus) 15 unit BID SC Last administered on 11/19/16 20:34; Admin Dose 15 UNIT; Start 11/18/16 at 21:00 NEHEMIAH SALEH Nov 20, 2016 16:18
[2016-11-20] MEDS ORDERED: INSULIN GLARGINE [LANtus] 3 ML PEN SC SCH (21:00)
== END 2016-11-20 18:28 | disposition home or self-care (01) | DRG 698 ==
LOC: PP2 17:18
PROVIDERS: ADMIT Internal Medicine; ATTEND Internal Medicine
PROC: 5A1D60Z (ICD-10-PCS; principal; 2016-11-17)
PROC: 05HM33Z Insertion of Infusion Device into Right Internal Jugular Vein, Percutaneous Approach (ICD-10-PCS; 2016-11-17)
PROC: B5131ZA Fluoroscopy of Right Jugular Veins using Low Osmolar Contrast, Guidance (ICD-10-PCS; 2016-11-17)
DX: T86.11 Kidney transplant rejection (principal); N18.6 End stage renal disease; D61.818 Other pancytopenia; I12.0 Hypertensive chronic kidney disease with stage 5 chronic kidney disease or end stage renal disease; D75.81 Myelofibrosis; D69.6 Thrombocytopenia, unspecified; I50.42 Chronic combined systolic (congestive) and diastolic (congestive) heart failure; I35.0 Nonrheumatic aortic (valve) stenosis; I27.2 Other secondary pulmonary hypertension; E11.649 Type 2 diabetes mellitus with hypoglycemia without coma; E11.319 Type 2 diabetes mellitus with unspecified diabetic retinopathy without macular edema; K21.9 Gastro-esophageal reflux disease without esophagitis; H54.42 Blindness, left eye, normal vision right eye; R60.0 Localized edema; R16.1 Splenomegaly, not elsewhere classified; Z87.891 Personal history of nicotine dependence; Z79.4 Long term (current) use of insulin; Z94.0 Kidney transplant status; Z89.512 Acquired absence of left leg below knee; E11.51 Type 2 diabetes mellitus with diabetic peripheral angiopathy without gangrene; Z79.899 Other long term (current) drug therapy
CPT/HCPCS: 36430; 36558; 71010; 76942; 80053; 81001; 82962; 83010; 83036; 83615; 85025; 85049; 85362; 85378; 85384; 85610; 85670; 85730; 86644; 86704; 86709; 86803; 86850; 86900; 86901; 87340; 90935; 93005; J0690; J1200; J1644; J1815; J2250; J2270; J3010; J7040; J7512; P9035